=== PATIENT | female | born 1960 | race Caucasian/White ===

== ENCOUNTER 2018-04-04 14:54 | Emergency (ER) | payer BC ==
[2018-04-04 15:00] VITALS: TEMP 97.9
--- NOTE | 2018-04-04 15:20 | ED ---
Abdominal Pain HPI - General Chief Complaint: Abdominal Pain Stated Complaint: Post Op/ Pain Time Seen by Provider: 04/04/18 15:10 Source: patient, RN notes reviewed Mode of arrival: ambulatory Limitations: no limitations - History of Present Illness Initial Comments: This is a 57-year-old female with a history of a hernia repair in. She surgery 2 weeks ago who complains of increased abdominal pain such as breathing is sharp with this activity but mostly dull and achy mostly 10/10 severity currently 8/10 as a chills sweats no nausea vomiting diarrhea she was constipated for a couple days after the procedure pronounced when normally she states. No dysuria no hematuria MD Complaint: abdominal pain, other - Related Data Home Medications Medication Instructions Recorded Confirmed Acetaminophen [Tylenol] 650 mg PO Q4H PRN 04/04/18 04/04/18 Cetirizine HCl [Zyrtec] 10 mg PO DAILY 04/04/18 04/04/18 Furosemide [Lasix] 20 mg PO BID 04/04/18 04/04/18 Lisinopril [Zestril] 2.5 mg PO DAILY 04/04/18 04/04/18 Multivitamins, Thera [Multivitamin 1 tab PO DAILY 04/04/18 04/04/18 (formulary)] Venlafaxine HCl [Effexor] 100 mg PO TID 04/04/18 04/04/18 busPIRone HCL 15 mg PO TID 04/04/18 04/04/18 lamoTRIgine [LaMICtal] 100 mg PO BID 04/04/18 04/04/18 Previous Rx's Medication Instructions Recorded Dicyclomine [Bentyl] 10 mg PO TID #15 capsule 04/04/18 HYDROcodone/APAP 7.5-325MG [[place] 1 tab PO Q6HR PRN 3 Days #12 tab 04/04/18 7.5-325] Allergies Allergy/AdvReac Type Severity Reaction Status Date / Time No Known Allergies Allergy Verified 04/04/18 15:16 Review of Systems ROS Statement: Those systems with pertinent positive or pertinent negative responses have been documented in the HPI. ROS Other: All systems not noted in ROS Statement are negative. Past Medical History Past Medical History: Hypertension, Osteoarthritis (OA) History of Any Multi-Drug Resistant Organisms: None Reported Past Surgical History: Bariatric Surgery, Bladder Surgery, Hysterectomy, Orthopedic Surgery Additional Past Surgical History / Comment(s): gastric sleeve with reversal and roun-y, right shoulder, bilateral hand, skin grafts to legs, Past Psychological History: Anxiety, Depression Smoking Status: Never smoker Past Alcohol Use History: None Reported Past Drug Use History: None Reported General Exam - General Exam Comments Initial Comments: This is a well-developed well-nourished awake alert oriented 3 female Limitations: no limitations General appearance: alert, anxious Head exam: Present: atraumatic, normocephalic, normal inspection Eye exam: Present: normal appearance, PERRL, EOMI. Absent: scleral icterus, conjunctival injection, periorbital swelling ENT exam: Present: normal exam, mucous membranes moist Neck exam: Present: normal inspection. Absent: tenderness, meningismus, lymphadenopathy Respiratory exam: Present: normal lung sounds bilaterally. Absent: respiratory distress, wheezes, rales, rhonchi, stridor Cardiovascular Exam: Present: regular rate, normal rhythm, normal heart sounds. Absent: systolic murmur, diastolic murmur, rubs, gallop, clicks GI/Abdominal exam: Present: soft, tenderness (Epigastric tenderness palpation with some voluntary guarding no rebound port sites are intact with no evidence of any dehiscence no evidence of infection.), normal bowel sounds. Absent: distended, guarding, rebound, rigid Rectal exam: Present: deferred Extremities exam: Present: normal inspection, full ROM, normal capillary refill. Absent: tenderness, pedal edema, joint swelling, calf tenderness Back exam: Present: normal inspection, full ROM. Absent: CVA tenderness (R), CVA tenderness (L) Neurological exam: Present: alert, oriented X3, CN II-XII intact Psychiatric exam: Present: normal affect, normal mood Skin exam: Present: warm, dry, intact, normal color. Absent: rash Course Vital Signs 04/04/18 04/04/18 14:56 17:15 Temperature 97.9 F Pulse Rate 82 71 Respiratory 18 16 Rate Blood Pressure 126/86 133/70 O2 Sat by Pulse 97 98 Oximetry Medical Decision Making - Medical Decision Making Patient did get improvement after the IV medication fluids I did discuss case with Dr. Eagle by way of a nurse and she was in the OR. Patient will be discharged and follow-up on Sunday which is in 5 days in the office. - Lab Data Result diagrams: 04/04/18 15:41 04/04/18 15:41 Lab Results 04/04/18 04/04/18 04/04/18 Range/Units 15:41 15:41 15:41 WBC 8.7 (3.8-10.6) k/uL RBC 4.68 (3.80-5.40) m/uL Hgb 13.8 (11.4-16.0) gm/dL Hct 41.6 (34.0-46.0) % MCV 89.0 (80.0-100.0) fL MCH 29.5 (25.0-35.0) pg MCHC 33.1 (31.0-37.0) g/dL RDW 14.4 (11.5-15.5) % Plt Count 208 (150-450) k/uL Neutrophils % 68 % Lymphocytes % 22 % Monocytes % 5 % Eosinophils % 3 % Basophils % 1 % Neutrophils # 5.9 (1.3-7.7) k/uL Lymphocytes # 1.9 (1.0-4.8) k/uL Monocytes # 0.5 (0-1.0) k/uL Eosinophils # 0.2 (0-0.7) k/uL Basophils # 0.0 (0-0.2) k/uL PT (9.0-12.0) sec INR (<1.2) APTT (22.0-30.0) sec Sodium 140 (137-145) mmol/L Potassium 4.4 (3.5-5.1) mmol/L Chloride 104 (98-107) mmol/L Carbon Dioxide 27 (22-30) mmol/L Anion Gap 9 mmol/L BUN 13 (7-17) mg/dL Creatinine 0.60 (0.52-1.04) mg/dL Est GFR (CKD-EPI)AfAm >90 (>60 ml/min/1.73 sqM) Est GFR (CKD-EPI)NonAf >90 (>60 ml/min/1.73 sqM) Glucose 89 (74-99) mg/dL Plasma Lactic Acid Rubens 0.6 L (0.7-2.0) mmol/L Calcium 9.7 (8.4-10.2) mg/dL Total Bilirubin 0.4 (0.2-1.3) mg/dL AST 29 (14-36) U/L ALT 33 (9-52) U/L Alkaline Phosphatase 78 (38-126) U/L Total Protein 7.0 (6.3-8.2) g/dL Albumin 4.3 (3.5-5.0) g/dL Amylase 46 (30-110) U/L Lipase 98 (23-300) U/L Urine Color Urine Appearance (Clear) Urine pH (5.0-8.0) Urine Protein (Negative) Urine Glucose (UA) (Negative) Urine Ketones (Negative) Urine Blood (Negative) Urine Nitrite (Negative) Urine Bilirubin (Negative) Urine Urobilinogen (<2.0) mg/dL Ur Leukocyte Esterase (Negative) Urine RBC (0-5) /hpf Urine WBC (0-5) /hpf Ur Squamous Epith Cells (0-4) /hpf Urine Mucus (None) /hpf 04/04/18 04/04/18 Range/Units 15:41 17:15 WBC (3.8-10.6) k/uL RBC (3.80-5.40) m/uL Hgb (11.4-16.0) gm/dL Hct (34.0-46.0) % MCV (80.0-100.0) fL MCH (25.0-35.0) pg MCHC (31.0-37.0) g/dL RDW (11.5-15.5) % Plt Count (150-450) k/uL Neutrophils % % Lymphocytes % % Monocytes % % Eosinophils % % Basophils % % Neutrophils # (1.3-7.7) k/uL Lymphocytes # (1.0-4.8) k/uL Monocytes # (0-1.0) k/uL Eosinophils # (0-0.7) k/uL Basophils # (0-0.2) k/uL PT 10.2 (9.0-12.0) sec INR 1.0 (<1.2) APTT 23.0 (22.0-30.0) sec Sodium (137-145) mmol/L Potassium (3.5-5.1) mmol/L Chloride (98-107) mmol/L Carbon Dioxide (22-30) mmol/L Anion Gap mmol/L BUN (7-17) mg/dL Creatinine (0.52-1.04) mg/dL Est GFR (CKD-EPI)AfAm (>60 ml/min/1.73 sqM) Est GFR (CKD-EPI)NonAf (>60 ml/min/1.73 sqM) Glucose (74-99) mg/dL Plasma Lactic Acid Rubens (0.7-2.0) mmol/L Calcium (8.4-10.2) mg/dL Total Bilirubin (0.2-1.3) mg/dL AST (14-36) U/L ALT (9-52) U/L Alkaline Phosphatase (38-126) U/L Total Protein (6.3-8.2) g/dL Albumin (3.5-5.0) g/dL Amylase (30-110) U/L Lipase (23-300) U/L Urine Color Yellow Urine Appearance Clear (Clear) Urine pH 7.0 (5.0-8.0) Urine Protein Trace H (Negative) Urine Glucose (UA) Negative (Negative) Urine Ketones 1+ H (Negative) Urine Blood Negative (Negative) Urine Nitrite Negative (Negative) Urine Bilirubin Negative (Negative) Urine Urobilinogen <2.0 (<2.0) mg/dL Ur Leukocyte Esterase Trace H (Negative) Urine RBC 2 (0-5) /hpf Urine WBC 1 (0-5) /hpf Ur Squamous Epith Cells 10 H (0-4) /hpf Urine Mucus Rare H (None) /hpf - Radiology Data Radiology results: report reviewed (I did review the imaging and report no acute findings. There is evidence of a small hernia superior to the umbilicus also small pelvic fluid), image reviewed Disposition Clinical Impression: Postoperative abdominal pain Disposition: HOME SELF-CARE Condition: Good Instructions: Abdominal Pain (ED) Prescriptions: Dicyclomine [Bentyl] 10 mg PO TID #15 capsule HYDROcodone/APAP 7.5-325MG [[place] 7.5-325] 1 tab PO Q6HR PRN 3 Days #12 tab PRN Reason: Pain Is patient prescribed a controlled substance at d/c from ED?: Yes When asked, does pt state using other controlled substances?: Yes If prescribed controlled substance>3 days was MAPS reviewed?: Prescribed <3 Days If opioid is for acute pain is fill amount 7 days or less?: Yes If Rx opioid, was Start Talking consent form obtained?: Yes Referrals: None,Stated [Primary Care Provider] - 1-2 days
[2018-04-04] MEDS ORDERED: IOPAMIDOL-300 CONTRAST 30 ML VIAL (ORAL USE) PO PRN (15:25)
[2018-04-04] MEDS ORDERED: SODIUM CHLORIDE 0.9% 1,000 ML IV STA ×2 (15:25)
[2018-04-04] MEDS ORDERED: HYDROmorphone 1 MG/ML 1 ML SYRINGE IVP STA (15:26)
[2018-04-04 15:51] LABS: Basophils % (A) 1 %; Eosinophils # (A) 0.2 k/uL (0-0.7); Eosinophils % (A) 3 %; HCT 41.6 % (34.0-46.0); HGB 13.8 gm/dL (11.4-16.0); Lymphocytes # (A) 1.9 k/uL (1.0-4.8); Lymphocytes % (A) 22 %; MCH 29.5 pg (25.0-35.0); MCHC 33.1 g/dL (31.0-37.0); Mean Platelet Volume 10.1; Monocytes # (A) 0.5 k/uL (0-1.0); Monocytes % (A) 5 %; Neutrophils # (A) 5.9 k/uL (1.3-7.7); Neutrophils % (A) 68 %; Platelet Count 208 k/uL (150-450); RBC 4.68 m/uL (3.80-5.40); RDW 14.4 % (11.5-15.5); WBC 8.7 k/uL (3.8-10.6)
[2018-04-04 15:57] LABS: ALT 33 U/L (9-52); AST 29 U/L (14-36); Albumin 4.3 g/dL (3.5-5.0); Alkaline Phosphatase 78 U/L (38-126); Amylase 46 U/L (30-110); Anion Gap 9 mmol/L; Blood Urea Nitrogen 13 mg/dL (7-17); Calcium 9.7 mg/dL (8.4-10.2); Carbon Dioxide 27 mmol/L (22-30); Chloride 104 mmol/L (98-107); Glucose 89 mg/dL (74-99); Lipase 98 U/L (23-300); Potassium 4.4 mmol/L (3.5-5.1); Sodium 140 mmol/L (137-145); Total Bilirubin 0.4 mg/dL (0.2-1.3)
--- NOTE | 2018-04-04 16:01 | XR ---
EXAMINATION TYPE: XR KUB DATE OF EXAM: 04/04/2018 3:54 PM CLINICAL HISTORY: Abdominal pain. History of hiatal hernia repair. TECHNIQUE: Single supine KUB image of the abdomen is obtained. COMPARISON: None. FINDINGS: Surgical sutures from possible prior partial gastrectomy and/or hernia repair in the left u pper quadrant. Liver is enlarged extending the iliac crest. Mild degenerative changes of the lumbosac ral junction are noted. No dilated large or small bowel. No evidence of gross pneumoperitoneum. No ab normal calcifications are appreciated. The lung bases are clear and the osseous structures are intact . IMPRESSION: Nonobstructive bowel gas pattern. Postsurgical changes in the left upper quadrant and hepatomegaly ar e incidentally noted.
[2018-04-04 16:02] LABS: Prothrombin Time 10.2 sec (9.0-12.0)
--- NOTE | 2018-04-04 16:38 | CT ---
EXAMINATION TYPE: CT abdomen pelvis w con DATE OF EXAM: 04/04/2018 COMPARISON: HISTORY: Mid abdominal pain post op hiatal hernia repair. CT DLP: 1472 mGycm CONTRAST: CT scan of the abdomen and pelvis is performed with Oral Contrast and with IV Contrast, patient injec ambrose with 100ml mL of Isovue M300. FINDINGS: LUNG BASES-: No visible nodule. No infiltrate. LIVER/GB: Unusually positioned gallbladder versus a focal fluid collection anterior to the liver. No space occupying hepatic lesion. Biliary tree is of normal caliber. PANCREAS: No inflammation. No distinct mass. SPLEEN: No splenic enlargement. No lesion seen. ADRENALS: No nodule. No thickening. KIDNEYS/BLADDER: No hydronephrosis. No nephrolithiasis. No distinct renal mass. Urinary bladder g rossly unremarkable. BOWEL: Epigastric postsurgical change. Postsurgical changes of bariatric gastric surgery. Normal appe ndix. Normal bowel caliber. No inflammation. GENITAL ORGANS: No gross abnormality. LYMPH NODES: No greater than 1cm abdominal or pelvic lymph nodes are appreciated. AORTA: No significant abnormality. OSSEOUS STRUCTURES: No significant abnormality is seen. OTHER: Small fat-containing anterior abdominal wall hernia just cranial to the level of the umbilicus and to the left of midline with the tubular fluid collection seen. Additional small umbilical hernia with internal fluid. Small amount of free fluid within the pelvis. IMPRESSION: 1. Small anterior abdominal wall hernias as noted. Correlate clinically. 2. No evidence for abscess or free air.
[2018-04-04 17:16] VITALS: BP 133/70; PULSE 71; RESP 16
[2018-04-04 17:31] LABS: Appearance,Urine Clear (Clear); Bilirubin,Urine Negative (Negative); Blood,Urine Negative (Negative); Color,Urine Yellow; Glucose,Urine (UA) Negative (Negative); Ketones,Urine 1+ (Negative); Leukocyte Esterase,Urine Trace (Negative); Mucus,Urine Rare /hpf; Nitrite,Urine Negative (Negative); Protein,Urine Trace (Negative); RBC,Urine 2 /hpf (0-5); Squamous Epithelial Cell,Urine 10 /hpf (0-4); Urobilinogen,Urine <2.0 mg/dL (<2.0); WBC,Urine 1 /hpf (0-5)
[2018-04-04 17:35] LABS: Specific Gravity,Urine >1.050 (1.001-1.035)
== END 2018-04-04 17:48 | disposition home or self-care (01) ==
LOC: EC 14:54
DX: G89.18 Other acute postprocedural pain (principal); R10.9 Unspecified abdominal pain; I10 Essential (primary) hypertension; F41.9 Anxiety disorder, unspecified; F32.9 Major depressive disorder, single episode, unspecified; Z98.84 Bariatric surgery status; Z90.710 Acquired absence of both cervix and uterus; Z98.890 Other specified postprocedural states; Z79.899 Other long term (current) drug therapy
CPT/HCPCS: 36415; 80053; 82150; 83605; 83690; 85025; 85610; 85730; 81001; 74018; 74177; 99284; 96374; 96361 ×2; J1170; Q9967

== ENCOUNTER 2018-05-02 08:11 | Day surgery (SDC) | payer BC ==
[2018-04-25 10:08] VITALS: BMI 34.4
--- NOTE | 2018-05-01 19:23 | P.GSHP ---
History of Present Illness H&P Date: 05/02/18 CHIEF COMPLAINT: Incisional hernia. HISTORY OF PRESENT ILLNESS: The patient is a 57-year-old female who presents with a history of swelling along the epigastrium. Findings were consistent with possible incisional hernia. Now she presents for further evaluation and management. PAST MEDICAL HISTORY: Please see list. PAST SURGICAL HISTORY: Please see list. MEDICATIONS: Please see list. ALLERGIES: Please see list. SOCIAL HISTORY: No illicit drug use FAMILY HISTORY: No reports of Crohn disease or ulcerative colitis. REVIEW OF ORGAN SYSTEMS: CONSTITUTIONAL: No reports of fevers or chills. GI: Denies any blood in stools or constipation. PHYSICAL EXAM: VITAL SIGNS: Stable GENERAL: Well-developed pleasant female in no acute distress. HEENT: No scleral icterus. Extraocular movements grossly intact. Moist buccal mucosa. NECK: Supple without lymphadenopathy. CHEST: Unlabored respirations. Equal bilateral excursions. CARDIOVASCULAR: Regular rate and rhythm. Distal 2+ pulses. ABDOMEN: Soft, nondistended. Tender along the epigastrium Protuberant. MUSCULOSKELETAL: No clubbing, cyanosis, or edema. ASSESSMENT: 1. Incisional ventral hernia. PLAN: 1. Recommend proceeding with robotic ventral hernia repair with mesh. 2. Benefits and risks of surgical intervention was discussed including possibility of open technique. 3. DVT prophylaxis. 4. Antibiotic prophylaxis. Past Medical History Past Medical History: Hypertension, Osteoarthritis (OA), Pulmonary Embolus (PE) Additional Past Medical History / Comment(s): HERNIA History of Any Multi-Drug Resistant Organisms: None Reported Past Surgical History: Bariatric Surgery, Bladder Surgery, Cholecystectomy, Hernia Repair, Hysterectomy, Orthopedic Surgery Additional Past Surgical History / Comment(s): gastric sleeve with reversal and [place] EN Y, right shoulder, bilateral hand, skin grafts to legs, COLONOSCOPIES, EGD'S Past Anesthesia/Blood Transfusion Reactions: No Reported Reaction Smoking Status: Never smoker - Past Family History Father Family Medical History: Cancer Medications and Allergies Home Medications Medication Instructions Recorded Confirmed Type Acetaminophen [Tylenol] 650 mg PO Q4H PRN 04/04/18 04/25/18 History Cetirizine HCl [Zyrtec] 10 mg PO DAILY 04/04/18 04/25/18 History Dicyclomine [Bentyl] 10 mg PO TID #15 capsule 04/04/18 04/25/18 Rx Furosemide [Lasix] 20 mg PO BID 04/04/18 04/25/18 History HYDROcodone/APAP 7.5-325MG [[place] 1 tab PO Q6HR PRN 3 Days #12 tab 04/04/1802/04 Rx 7.5-325] Lisinopril [Zestril] 2.5 mg PO DAILY 04/04/18 04/25/18 History Multivitamins, Thera [Multivitamin 1 tab PO DAILY 04/04/18 04/25/18 History (formulary)] Venlafaxine HCl [Effexor] 100 mg PO TID 04/04/18 04/25/18 History busPIRone HCL 15 mg PO TID 04/04/18 04/25/18 History lamoTRIgine [LaMICtal] 100 mg PO BID 04/04/18 04/25/18 History Simethicone 40 mg/0.6 ml Drops 40 mg PO Q6HR PRN #30 ml 04/24/18 04/25/18 Rx [Mylicon Drops] Hyoscyamine Oral Drops [Levsin 0.3 mg PO Q6HR #15 ml 04/25/18 04/25/18 Rx Drops] Allergies Allergy/AdvReac Type Severity Reaction Status Date / Time No Known Allergies Allergy Verified 04/25/18 10:01
[~2018-05-02 08:11] MED LIST: DEXAMETHASONE SOD PHOSPHATE 10 MG/ML 1 ML VIAL IV ONE; HEPARIN SODIUM,PORCINE 5,000 UNIT/ML 1 ML VIAL SQ ONE; LACTATED RINGERS 1,000 ML IV SCH; MIDAZOLAM 2 MG/2 ML VIAL IV PRN; ONDANSETRON 4 MG/2 ML VIAL IVP ONE; SCOPOLAMINE 1.5MG/72HR PATCH TRANSDERM ONE; ceFAZolin IN SWFI 2 GM/20 ML SYRINGE IVP ONE; fentaNYL (PF) 50 MCG/ML 2 ML AMP IV PRN
[2018-05-02 08:27] VITALS: TEMP 97.8
[2018-05-02] MEDS ORDERED: LIDOCAINE 1% 20 ML VIAL (10MG/ML) FOR IV START INTRADERMA ONE (08:31)
[2018-05-02] MEDS ORDERED: LACTATED RINGERS 1,000 ML IV ONE ×3 (08:47→13:02)
[2018-05-02] MEDS ORDERED: MIDAZOLAM 2 MG/2 ML VIAL IVP ONE (08:47)
[2018-05-02] MEDS ORDERED: BUPIVACAIN-EPI 0.25%-1:200,000 30 ML VIAL SQ ONE ×2 (10:45→11:11)
[2018-05-02] MEDS ORDERED: GLYCOPYRROLATE 0.2 MG/ML 2 ML VIAL ONE (10:46)
[2018-05-02] MEDS ORDERED: LIDOCAINE 1% INJ 10MG/ML (20 ML MDV) ONE (10:46)
[2018-05-02] MEDS ORDERED: fentaNYL (PF) 50 MCG/ML 2 ML AMP ONE (10:46)
[2018-05-02] MEDS ORDERED: PROPOFOL 10 MG/ML 20 ML VIAL IV ONE (10:46)
[2018-05-02] MEDS ORDERED: MIDAZOLAM 2 MG/2 ML VIAL ONE (10:46)
[2018-05-02] MEDS ORDERED: ROCURONIUM BROMIDE 10 MG/ML 10 ML VIAL IV ONE (10:46)
[2018-05-02] MEDS ORDERED: SUCCINYLCHOLINE CHLORIDE 100 MG/5 ML SYR IV ONE (10:46)
[2018-05-02] MEDS ORDERED: NEOSTIGMINE 1 MG/ML 10 ML VIAL ONE (10:46)
--- NOTE | 2018-05-02 12:03 | P.OP ---
Date of Procedure: 05/02/18 Description of Procedure: SURGEON: MIKAELA EASTON MD PREOPERATIVE DIAGNOSES: 1. Epigastric abdominal pain 2. Abnormal computed tomography scan demonstrating possible incisional hernia 3. History of gastric bypass 4. Hypertensive heart disease with cardiomyopathy 5. Status post gastric bypass 6. Portillo's esophagus 7. Gastroesophageal reflux disease POSTOPERATIVE DIAGNOSES: 1. Epigastric abdominal pain 2. Abnormal computed tomography scan demonstrating possible incisional hernia 3. History of gastric bypass 4. Hypertensive heart disease with cardiomyopathy 5. Status post gastric bypass 6. Portillo's esophagus 7. Gastroesophageal reflux disease 8. Peritoneal adhesions. 9. Mesenteric/Peritoneal cyst over 5 cm 10. Internal hernia OPERATION: 1. Robotic-assisted da Shravan Xi laparoscopic with lysis of adhesions 2. Robotic-assisted da Shravan Xi laparoscopic excision of mesenteric cyst, 5 cm ESTIMATED BLOOD LOSS: 5 mL. SPECIMENS REMOVED: Mesenteric cyst wall COMPLICATIONS: None. OPERATIVE FINDINGS: 1. No ventral hernias identified. 2. Adhesions along the epigastrium 3. Diagnostic laparoscopy with investigation of small bowel with internal hernia involving transverse mesocolon mesentery INDICATIONS: The patient is a 57-year-old female who presents with epigastric abdominal pain and possible incisional hernia per CT scan. Surgical intervention with diagnostic laparoscopy, possible ventral hernia repair were described. Informed consent was obtained. Robotic assisted laparoscopic approach was described. Benefits and risks of the procedure including but not limited to bleeding, infection, injury to the biliary tree was described. Informed consent was obtained. DESCRIPTION OF PROCEDURE: Patient was brought to the operating room, placed in supine position. After general induction, the abdomen had been prepped and draped in standard sterile fashion. The robotic da Shravan XI system was primed. After a timeout protocol was performed, the patient had been prepped and draped in standard sterile fashion. The robot was docked along the right lateral abdomen. The patient was repositioned in with right side up. Please note prior to docking of the robot; however, a 5 mm 0 degrees laparoscopic trocar entry was performed along the right upper quadrant. Next, two 8 mm robotic ports were placed along the right lateral abdominal wall. The camera 8-mm port was maintained along mid- lateral abdomen. The 8 mm port was placed along the right upper abdominal wall was exchanged from the 5 mm port. Please note that the ports were placed at least 10 to 15 cm away from the target anatomy. Using a grasper for arm 2, including scissor for arm 1, the robotic system was docked and primed as described. Instruments were interchanged by the account assistant including Bovie cautery scissors. I had sat at the console. Omental adhesions along the epigastric abdominal wall was addressed using scissors. No evidence of incisional hernia was identified. The rest of the abdomen was unremarkable for small bowel pathology. No port site hernias were identified. A large mesenteric cyst over 5 cm was excised from the right upper quadrant abdominal wall and clear fluid was found. The mesenteric cyst wall was sent for pathological analysis. The small bowel from the arthur limb to distal ileum was performed. An internal hernia of the transverse mesocolon was identified and lysed. No evidence of small bowel obstruction was found. The robot was undocked. All pneumoperitoneum instruments were evacuated from the abdominal cavity. The incisions were reapproximated using 4-0 Monocryl in an interrupted subcuticular fashion. Please note along the trocar sites, local anesthetic was placed as a field block prior to insertion of all instruments. Exofin was applied to the skin. At the end of the procedure needle, sponge, and instrument count had been verified correct by the instructor adjunct surgical technician. The patient was transferred to postanesthesia care unit in stable condition. Console time 22 minutes Plan - Discharge Summary Discharge Rx Participant: Yes New Discharge Prescriptions: No Action Acetaminophen [Tylenol] 650 mg PO Q4H PRN PRN Reason: Pain Or Fever > 100.5 lamoTRIgine [LaMICtal] 100 mg PO BID busPIRone HCL 15 mg PO TID Multivitamins, Thera [Multivitamin (formulary)] 1 tab PO DAILY Furosemide [Lasix] 20 mg PO BID Lisinopril [Zestril] 2.5 mg PO DAILY Cetirizine HCl [Zyrtec] 10 mg PO DAILY Venlafaxine HCl [Effexor] 100 mg PO TID Dicyclomine [Bentyl] 10 mg PO TID #15 capsule HYDROcodone/APAP 7.5-325MG [[place] 7.5-325] 1 tab PO Q6HR PRN 3 Days #12 tab PRN Reason: Pain Simethicone 40 mg/0.6 ml Drops [Mylicon Drops] 40 mg PO Q6HR PRN #30 ml PRN Reason: Abdominal Distention Hyoscyamine Oral Drops [Levsin Drops] 0.3 mg PO Q6HR #15 ml Discharge Medication List Acetaminophen [Tylenol] 650 mg PO Q4H PRN 04/04/18 [History] Cetirizine HCl [Zyrtec] 10 mg PO DAILY 04/04/18 [History] Dicyclomine [Bentyl] 10 mg PO TID #15 capsule 04/04/18 [Rx] Furosemide [Lasix] 20 mg PO BID 04/04/18 [History] HYDROcodone/APAP 7.5-325MG [[place] 7.5-325] 1 tab PO Q6HR PRN 3 Days #12 tab [Rx] Lisinopril [Zestril] 2.5 mg PO DAILY 04/04/18 [History] Multivitamins, Thera [Multivitamin (formulary)] 1 tab PO DAILY 04/04/18 [History ] Venlafaxine HCl [Effexor] 100 mg PO TID 04/04/18 [History] busPIRone HCL 15 mg PO TID 04/04/18 [History] lamoTRIgine [LaMICtal] 100 mg PO BID 04/04/18 [History] Simethicone 40 mg/0.6 ml Drops [Mylicon Drops] 40 mg PO Q6HR PRN #30 ml [Rx] Hyoscyamine Oral Drops [Levsin Drops] 0.3 mg PO Q6HR #15 ml 04/25/18 [Rx]
[2018-05-02] MEDS ORDERED: HYDROmorphone 1 MG/ML 1 ML SYRINGE IM ONE (12:10)
[2018-05-02] MEDS ORDERED: HYDROmorphone 1 MG/ML 1 ML SYRINGE IVP ONE ×3 (12:18→12:31)
[2018-05-02] MEDS ORDERED: HYDROcodone/APAP 7.5-325MG 1 EACH TAB PO ONE (13:47)
[2018-05-02 14:20] VITALS: BP 138/87; PULSE 88; RESP 17
== END 2018-05-02 14:31 | disposition home or self-care (01) ==
LOC: OR 08:11
PROVIDERS: ATTEND Surgery Plastic and Reconstructive Surgery
DX: K66.8 Other specified disorders of peritoneum (principal); K66.0 Peritoneal adhesions (postprocedural) (postinfection); K46.9 Unspecified abdominal hernia without obstruction or gangrene; I11.9 Hypertensive heart disease without heart failure; I42.9 Cardiomyopathy, unspecified; K22.70 Barrett's esophagus without dysplasia; K21.9 Gastro-esophageal reflux disease without esophagitis; M19.90 Unspecified osteoarthritis, unspecified site; F39 Unspecified mood [affective] disorder; Z79.899 Other long term (current) drug therapy; Z90.3 Acquired absence of stomach [part of]; Z98.84 Bariatric surgery status; Z90.49 Acquired absence of other specified parts of digestive tract; Z90.710 Acquired absence of both cervix and uterus; Z86.711 Personal history of pulmonary embolism
CPT/HCPCS: 49329; 58662; 88305; J2250; J1644; J1100; J2710; J2405; J2001; J3010; J1170; J0330; J2704; J0690

== ENCOUNTER 2018-05-05 21:45 | Inpatient (IN) | payer BC ==
[2018-05-05] MEDS ORDERED: SODIUM CHLORIDE 0.9% 1,000 ML IV STA (21:59)
[2018-05-05] MEDS ORDERED: IOPAMIDOL-300 CONTRAST 30 ML VIAL (ORAL USE) PO PRN (21:59)
[2018-05-05] MEDS ORDERED: MORPHINE SULFATE 4 MG/ML SYRINGE IVP STA (22:07)
[2018-05-05] MEDS ORDERED: ONDANSETRON 4 MG/2 ML VIAL IVP STA (22:07)
[2018-05-05 22:48] LABS: Basophils % (A) 0 %; Eosinophils # (A) 0.4 k/uL (0-0.7); Eosinophils % (A) 5 %; HCT 42.4 % (34.0-46.0); HGB 14.2 gm/dL (11.4-16.0); Lymphocytes # (A) 1.8 k/uL (1.0-4.8); Lymphocytes % (A) 21 %; MCH 30.3 pg (25.0-35.0); MCHC 33.6 g/dL (31.0-37.0); MCV 90.3 fL (80.0-100.0); Mean Platelet Volume 10.1; Monocytes # (A) 0.6 k/uL (0-1.0); Monocytes % (A) 7 %; Neutrophils # (A) 5.6 k/uL (1.3-7.7); Neutrophils % (A) 65 %; Platelet Count 199 k/uL (150-450); RDW 13.4 % (11.5-15.5); WBC 8.7 k/uL (3.8-10.6)
[2018-05-05 22:49] LABS: Appearance,Urine Clear (Clear); Bilirubin,Urine Negative (Negative); Blood,Urine Negative (Negative); Color,Urine Yellow; Glucose,Urine (UA) Negative (Negative); Ketones,Urine Negative (Negative); Leukocyte Esterase,Urine Small (Negative); Mucus,Urine Rare /hpf; Nitrite,Urine Negative (Negative); Protein,Urine Trace (Negative); RBC,Urine 1 /hpf (0-5); Specific Gravity,Urine 1.018 (1.001-1.035); Squamous Epithelial Cell,Urine 2 /hpf (0-4); Urobilinogen,Urine <2.0 mg/dL (<2.0); WBC,Urine 5 /hpf (0-5)
[2018-05-05 22:55] LABS: Partial Thromboplastin Time 24.2 sec (22.0-30.0); Prothrombin Time 9.8 sec (9.0-12.0)
[2018-05-05 23:01] LABS: ALT 22 U/L (9-52); AST 22 U/L (14-36); Albumin 4.3 g/dL (3.5-5.0); Alkaline Phosphatase 73 U/L (38-126); Amylase 40 U/L (30-110); Anion Gap 9 mmol/L; Blood Urea Nitrogen 14 mg/dL (7-17); Carbon Dioxide 31 mmol/L (22-30); Chloride 101 mmol/L (98-107); Glucose 96 mg/dL (74-99); Lipase 51 U/L (23-300); Potassium 4.4 mmol/L (3.5-5.1); Sodium 141 mmol/L (137-145); Total Bilirubin 0.4 mg/dL (0.2-1.3); Total Protein 7.1 g/dL (6.3-8.2)
--- NOTE | 2018-05-05 23:21 | ED ---
General Adult HPI - General Chief complaint: Abdominal Pain Stated complaint: Abd pain Time Seen by Provider: 05/05/18 21:59 Source: patient, family Mode of arrival: ambulatory Limitations: no limitations - History of Present Illness Initial comments: Polly is a 57-year-old female who presents the emergency department today for evaluation of persistent abdominal pain nausea and vomiting. The patient underwent a bariatric surgery revision [address] Eagle. Patient reports that since that time she has not passed any gas, he has had persistent nausea and multiple episodes of nonbloody nonbilious emesis. Patient does report that this morning she did have a small bowel movement that was nonbloody however since that time she has not had any gas per rectum. Patient reports she has constant squeezing and pulling like pain throughout her entire abdomen. She is been taking [place] and stool softeners with absolutely no relief of her pain. She is now out of her narcosis and her pain persists. His any fevers though she does admit that she has been chilled, she denies any chest pain or palpitations. - Related Data Home Medications Medication Instructions Recorded Confirmed Acetaminophen [Tylenol] 650 mg PO Q4H PRN 04/04/18 05/05/18 Cetirizine HCl [Zyrtec] 10 mg PO DAILY 04/04/18 05/05/18 Furosemide [Lasix] 20 mg PO BID 04/04/18 05/05/18 Lisinopril [Zestril] 2.5 mg PO DAILY 04/04/18 05/05/18 Multivitamins, Thera [Multivitamin 1 tab PO DAILY 04/04/18 05/05/18 (formulary)] RX: busPIRone HCL 15 mg PO TID 04/04/18 05/05/18 Venlafaxine HCl [Effexor] 100 mg PO TID 04/04/18 05/05/18 lamoTRIgine [LaMICtal] 100 mg PO BID 04/04/18 05/05/18 Previous Rx's Medication Instructions Recorded Dicyclomine [Bentyl] 10 mg PO TID #15 capsule 04/04/18 HYDROcodone/APAP 7.5-325MG [[place] 1 tab PO Q6HR PRN 3 Days #12 tab 04/04/18 7.5-325] RX: Simethicone 40 mg/0.6 ml Drops 40 mg PO Q6HR PRN #30 ml 04/24/18 [Mylicon Drops] Hyoscyamine Oral Drops [Levsin 0.3 mg PO Q6HR #15 ml 04/25/18 Drops] HYDROcodone/APAP 7.5-325MG [[place] 1 tab PO Q4H PRN 3 Days #18 tab 05/02/18 7.5-325] Allergies Allergy/AdvReac Type Severity Reaction Status Date / Time No Known Allergies Allergy Verified 05/05/18 21:57 Review of Systems ROS Statement: Those systems with pertinent positive or pertinent negative responses have been documented in the HPI. ROS Other: All systems not noted in ROS Statement are negative. Past Medical History Past Medical History: Hypertension, Osteoarthritis (OA), Pulmonary Embolus (PE) Additional Past Medical History / Comment(s): HERNIA History of Any Multi-Drug Resistant Organisms: None Reported Past Surgical History: Bariatric Surgery, Bladder Surgery, Cholecystectomy, Hernia Repair, Hysterectomy, Orthopedic Surgery Additional Past Surgical History / Comment(s): gastric sleeve with reversal and [place] EN Y, right shoulder, bilateral hand, skin grafts to legs, COLONOSCOPIES, EGD'S Past Anesthesia/Blood Transfusion Reactions: No Reported Reaction Past Psychological History: Anxiety, Depression Smoking Status: Former smoker Past Alcohol Use History: None Reported Past Drug Use History: None Reported - Past Family History Father Family Medical History: Cancer General Exam - General Exam Comments Initial Comments: GENERAL: Patient is well-developed and well-nourished. Patient is nontoxic and well- hydrated and is in moderate distress. HENT: Normocephalic, Atraumatic. Neck is soft and supple. No significant lymphadenopathy is noted. EYES: The sclera were anicteric and conjunctiva were pink and moist. Extraocular movements were intact and pupils were round and reactive to light, noted to have physiologic and is acoria with left pupil approximately 1-2 mm larger than right. Eyelids were unremarkable. PULMONARY: Unlabored respirations. Good breath sounds bilaterally. No audible rales rhonchi or wheezing was noted. CARDIOVASCULAR: There is a regular rate and rhythm without any murmurs gallops or rubs. ABDOMEN: Soft and nontender with normal bowel sounds. SKIN: Skin is clear with no lesions or rashes and otherwise unremarkable. NEUROLOGIC: Patient is alert and oriented x3. Cranial nerves II through XII are grossly intact. Motor and sensory are also intact. Normal speech, volume and content. Symmetrical smile. MUSCULOSKELETAL: Normal extremities with adequate strength and full range of motion. No lower extremity swelling or edema. No calf tenderness. LYMPHATICS: No significant lymphadenopathy is noted PSYCHIATRIC: Normal psychiatric evaluation. Limitations: no limitations Limitations: no limitations Course Vital Signs 05/05/18 05/05/18 21:53 23:38 Temperature 98.5 F Pulse Rate 76 66 Respiratory 20 16 Rate Blood Pressure 133/91 145/85 O2 Sat by Pulse 99 99 Oximetry Medical Decision Making - Medical Decision Making Patient care was discussed with the patient's surgeon Dr. Pathak prior to the patient's arrival patient is in the immediate postop period having abdominal pain, passing no gas there is concern for a bowel obstruction. Upon arrival patient was seen and evaluated, labs and imaging were ordered A 2 L IV fluid bolus was given and morphine was ordered for pain Labs were unremarkable, however computed tomography scan is suggestive of a mechanical small bowel obstruction with small bowel dilatation up to 4 cm. Patient was reevaluated, she reports no improvement in her discomfort after IV morphine, she tolerated by mouth contrast without vomiting She was updated on CT findings of bowel obstruction and plan for admission Patient's lab and imaging findings were again discussed with surgeon Dr. Pathak who requested the patient be admitted, nothing by mouth diet, IV fluids, Dilaudid when necessary for pain Admission orders were placed - Lab Data Result diagrams: 05/05/18 22:35 05/05/18 22:35 Lab Results 05/05/18 05/05/18 05/05/18 Range/Units 22:35 22:35 22:35 WBC 8.7 (3.8-10.6) k/uL RBC 4.70 (3.80-5.40) m/uL Hgb 14.2 (11.4-16.0) gm/dL Hct 42.4 (34.0-46.0) % MCV 90.3 (80.0-100.0) fL MCH 30.3 (25.0-35.0) pg MCHC 33.6 (31.0-37.0) g/dL RDW 13.4 (11.5-15.5) % Plt Count 199 (150-450) k/uL Neutrophils % 65 % Lymphocytes % 21 % Monocytes % 7 % Eosinophils % 5 % Basophils % 0 % Neutrophils # 5.6 (1.3-7.7) k/uL Lymphocytes # 1.8 (1.0-4.8) k/uL Monocytes # 0.6 (0-1.0) k/uL Eosinophils # 0.4 (0-0.7) k/uL Basophils # 0.0 (0-0.2) k/uL PT (9.0-12.0) sec INR (<1.2) APTT (22.0-30.0) sec Sodium 141 (137-145) mmol/L Potassium 4.4 (3.5-5.1) mmol/L Chloride 101 (98-107) mmol/L Carbon Dioxide 31 H (22-30) mmol/L Anion Gap 9 mmol/L BUN 14 (7-17) mg/dL Creatinine 0.62 (0.52-1.04) mg/dL Est GFR (CKD-EPI)AfAm >90 (>60 ml/min/1.73 sqM) Est GFR (CKD-EPI)NonAf >90 (>60 ml/min/1.73 sqM) Glucose 96 (74-99) mg/dL Plasma Lactic Acid Rubens 0.8 (0.7-2.0) mmol/L Calcium 10.0 (8.4-10.2) mg/dL Total Bilirubin 0.4 (0.2-1.3) mg/dL AST 22 (14-36) U/L ALT 22 (9-52) U/L Alkaline Phosphatase 73 (38-126) U/L Total Protein 7.1 (6.3-8.2) g/dL Albumin 4.3 (3.5-5.0) g/dL Amylase 40 (30-110) U/L Lipase 51 (23-300) U/L Urine Color Urine Appearance (Clear) Urine pH (5.0-8.0) Ur Specific [place] (1.001-1.035) Urine Protein (Negative) Urine Glucose (UA) (Negative) Urine Ketones (Negative) Urine Blood (Negative) Urine Nitrite (Negative) Urine Bilirubin (Negative) Urine Urobilinogen (<2.0) mg/dL Ur Leukocyte Esterase (Negative) Urine RBC (0-5) /hpf Urine WBC (0-5) /hpf Ur Squamous Epith Cells (0-4) /hpf Urine Mucus (None) /hpf 05/05/18 05/05/18 Range/Units 22:35 22:35 WBC (3.8-10.6) k/uL RBC (3.80-5.40) m/uL Hgb (11.4-16.0) gm/dL Hct (34.0-46.0) % MCV (80.0-100.0) fL MCH (25.0-35.0) pg MCHC (31.0-37.0) g/dL RDW (11.5-15.5) % Plt Count (150-450) k/uL Neutrophils % % Lymphocytes % % Monocytes % % Eosinophils % % Basophils % % Neutrophils # (1.3-7.7) k/uL Lymphocytes # (1.0-4.8) k/uL Monocytes # (0-1.0) k/uL Eosinophils # (0-0.7) k/uL Basophils # (0-0.2) k/uL PT 9.8 (9.0-12.0) sec INR 1.0 (<1.2) APTT 24.2 (22.0-30.0) sec Sodium (137-145) mmol/L Potassium (3.5-5.1) mmol/L Chloride (98-107) mmol/L Carbon Dioxide (22-30) mmol/L Anion Gap mmol/L BUN (7-17) mg/dL Creatinine (0.52-1.04) mg/dL Est GFR (CKD-EPI)AfAm (>60 ml/min/1.73 sqM) Est GFR (CKD-EPI)NonAf (>60 ml/min/1.73 sqM) Glucose (74-99) mg/dL Plasma Lactic Acid [place] (0.7-2.0) mmol/L Calcium (8.4-10.2) mg/dL Total Bilirubin (0.2-1.3) mg/dL AST (14-36) U/L ALT (9-52) U/L Alkaline Phosphatase (38-126) U/L Total Protein (6.3-8.2) g/dL Albumin (3.5-5.0) g/dL Amylase (30-110) U/L Lipase (23-300) U/L Urine Color Yellow Urine Appearance Clear (Clear) Urine pH 8.0 (5.0-8.0) Ur Specific [place] 1.018 (1.001-1.035) Urine Protein Trace H (Negative) Urine Glucose (UA) Negative (Negative) Urine Ketones Negative (Negative) Urine Blood Negative (Negative) Urine Nitrite Negative (Negative) Urine Bilirubin Negative (Negative) Urine Urobilinogen <2.0 (<2.0) mg/dL Ur Leukocyte Esterase Small H (Negative) Urine RBC 1 (0-5) /hpf Urine WBC 5 (0-5) /hpf Ur Squamous Epith Cells 2 (0-4) /hpf Urine Mucus Rare H (None) /hpf Disposition Clinical Impression: Small bowel obstruction Disposition: ADMITTED IP TO THIS [facility] Condition: Stable Is patient prescribed a controlled substance at d/c from ED?: No Referrals: None,Stated [Primary Care Provider] - 1-2 days
--- NOTE | 2018-05-05 23:33 | CT ---
EXAMINATION TYPE: CT abdomen pelvis w con DATE OF EXAM: 05/05/2018 COMPARISON: 04/04/2018 HISTORY: Abd pain CT DLP: 1351.70 mGycm Automated exposure control for dose reduction was used. TECHNIQUE: Helical acquisition of images was performed from the lung bases through the pelvis. CONTRAST: Performed with Oral Contrast and with IV Contrast, patient injected with 100 mL of Isovue 300. FINDINGS: The lung bases are clear of consolidation. There is no pleural effusion. Heart size is normal. There are surgical clips at the gastric fundus with apparent gastrojejunostomy. There are multiple surgical clips in the left upper quadrant involving mid jejunum. Liver and spleen appear normal. There is no pancreatic mass. There is no adrenal mass. Kidneys show s atisfactory contrast opacification. There is no hydronephrosis. There are some dilated small bowel lo ops in the mid abdomen. These measure up to 4 cm. The distal small bowel is not dilated. There is a 6 mm anterior subluxation of L4 in relation L5. There is narrowing of lumbar disc spaces. There is no compression fracture. Bladder distends smoothly. There is no ascites. There is no evidence of pneumoperitoneum. There is no retroperitoneal adenopathy. IMPRESSION: THERE IS DILATED PROXIMAL SMALL BOWEL CONSISTENT WITH A MECHANICAL SMALL BOWEL OBSTRUCTION. THIS IS N EW COMPARED TO OLD CT SCAN. THERE IS CLEARING OF A CYSTIC FLUID COLLECTION ANTERIOR TO THE LIVER COMP ARED TO OLD EXAM THAT COULD BE A SEROMA.
[2018-05-06] MEDS ORDERED: ONDANSETRON 4 MG/2 ML VIAL IVP PRN (00:34)
[2018-05-06] MEDS ORDERED: NALOXONE 0.4 MG/ML 1 ML VIAL IV PRN (00:34)
[2018-05-06] MEDS: HYDROmorphone 1 MG/ML 1 ML SYRINGE IVP PRN ×7 (00:52→23:10)
[2018-05-06] MEDS: SODIUM CHLORIDE 0.9% 1,000 ML IV SCH ×5 (00:57→22:07)
[2018-05-06 02:12] VITALS: BMI 35.4
[2018-05-06 07:40] LABS: Glucose,Whole Blood 110 mg/dL (75-99)
[2018-05-06] MEDS ORDERED: ceFAZolin IN SWFI 2 GM/20 ML SYRINGE IVP ONE (08:01)
[2018-05-06] MEDS: PANTOPRAZOLE 40 MG/10 ML VIAL IV SCH (08:23)
[2018-05-06] MEDS: HEPARIN SODIUM,PORCINE 5,000 UNIT/ML 1 ML VIAL SQ SCH ×2 (08:23→15:53)
--- NOTE | 2018-05-06 09:55 | P.GSHP ---
History of Present Illness H&P Date: 05/06/18 CHIEF COMPLAINT: Small bowel obstruction HISTORY OF PRESENT ILLNESS: The patient is a 57-year-old female who presented with 2 day history of intractable nausea and vomiting including generalized abdominal pain. She has history of lysis of adhesions performed almost 4 days ago. She reports new gastroesophageal reflux disease including inability pass flatus. Her last bowel movement was yesterday morning. Since the day, she still reports moderate abdominal pain. She reports no passage of flatus including abdominal distention. CT of the abdomen and pelvis consistent with small bowel obstruction hence her admission. She has a pertinent history of gastric bypass. PAST MEDICAL HISTORY: Please see list. PAST SURGICAL HISTORY: Please see list. MEDICATIONS: Please see list. ALLERGIES: Please see list. SOCIAL HISTORY: No illicit drug use FAMILY HISTORY: No reports of Crohn disease or ulcerative colitis. REVIEW OF ORGAN SYSTEMS: GI: Denies any blood in stools or constipation. History of gastric esophageal reflux disease CONSTITUTIONAL: Denies any fever or chills. Intentional weight loss over 80 pounds from July 2017 gastric bypass HEENT: Denies any trouble with vision, hearing or nosebleeds. No difficulty swallowing. LYMPHATIC: The patient denies any lumps and bumps around the neck. ENDOCRINE: Denies any thyroid disorders. Denies any blood sugar glucose intolerance. RESPIRATORY: Denies pneumonia. Denies any troubles with breathing or dyspnea on exertion. CARDIOVASCULAR: Denies any chest pain, palpitations, or recent heart attacks. GENITOURINARY: Denies any blood in urine or increased urinary frequency. MUSCULOSKELETAL: Denies any back pain, stiffness, joint arthritis. NEUROLOGIC: Denies any numbness or tingling along the distal extremities. No seizure disorders or headaches. PSYCHIATRIC: Denies depression or suidical ideation. HEMATOLOGIC: Denies any abnormal bleeding or bruising. BREASTS: Denies any breast lumps, pain or nipple discharge. PHYSICAL EXAM: GENERAL: Well developed and in mild distress. HEENT: No sclera icterus. Extraocular movements grossly intact. Dry buccal mucosa. Head is atraumatic, normocephalic. Hears conversational speech. No nasal drainage. NECK: Supple without lymphadenopathy. No JV distention. CHEST: Non-labored respirations and equal bilateral excursions. CARDIOVASCULAR: Regular rate and rhythm. Palpable 2+ radial pulses. ABDOMEN: Soft, tender generalized. No peritonitis. Has distention. MUSCULOSKELETAL: No clubbing, cyanosis or edema. NEUROLOGIC: No focal or lateralizing signs. Cranial nerves II-12 grossly intact PSYCH: Appropriate affect. Alert and oriented to person, place and time. SKIN: Poor skin turgor. Well perfused. ASSESSMENT: 1. Small bowel obstruction PLAN: 1. With a history of gastric bypass, she is high risk for internal hernia causing her bowel obstruction. Recommend diagnostic laparoscopy with potential lysis of adhesions 2. Full inpatient hospitalization anticipated greater than 2 days 3. DVT prophylaxis 4. Antibiotic prophylaxis 5. Nothing by mouth at this time Past Medical History Past Medical History: Hypertension, Osteoarthritis (OA), Pulmonary Embolus (PE) Additional Past Medical History / Comment(s): HERNIA History of Any Multi-Drug Resistant Organisms: None Reported Past Surgical History: Bariatric Surgery, Bladder Surgery, Cholecystectomy, Hernia Repair, Hysterectomy, Orthopedic Surgery Additional Past Surgical History / Comment(s): gastric sleeve with reversal and [place] EN Y, right shoulder, bilateral hand, skin grafts to legs, COLONOSCOPIES, EGD'S Past Anesthesia/Blood Transfusion Reactions: No Reported Reaction Past Psychological History: Anxiety, Depression Smoking Status: Former smoker Past Alcohol Use History: None Reported Past Drug Use History: None Reported - Past Family History Father Family Medical History: Cancer Mother Additional Family Medical History / Comment(s): Heart attack while on the toilet. Medications and Allergies Home Medications Medication Instructions Recorded Confirmed Type Acetaminophen [Tylenol] 650 mg PO Q4H PRN 04/04/18 05/06/18 History Cetirizine HCl [Zyrtec] 10 mg PO DAILY 04/04/18 05/06/18 History Furosemide [Lasix] 20 mg PO BID 04/04/18 05/06/18 History Lisinopril [Zestril] 2.5 mg PO DAILY 04/04/18 05/06/18 History Multivitamins, Thera [Multivitamin 1 tab PO DAILY 04/04/18 05/06/18 History (formulary)] Venlafaxine HCl [Effexor] 100 mg PO TID 04/04/18 05/06/18 History busPIRone HCL 15 mg PO TID 04/04/18 05/06/18 History lamoTRIgine [LaMICtal] 100 mg PO BID 04/04/18 05/06/18 History Simethicone 40 mg/0.6 ml Drops 40 mg PO Q6HR PRN #30 ml 04/24/18 05/06/18 Rx [Mylicon Drops] Melatonin 10 mg PO HS PRN 05/06/18 05/06/18 History Allergies Allergy/AdvReac Type Severity Reaction Status Date / Time No Known Allergies Allergy Verified 05/06/18 08:13 Surgical - Exam Vital Signs Temp Pulse Resp BP Pulse Ox 98.5 F 76 20 133/91 99 05/05/18 21:53 05/05/18 21:53 05/05/18 21:53 05/05/18 21:53 05/05/18 21:53 Results - Labs 05/05/18 22:35 05/05/18 22:35 Abnormal Lab Results - Last 24 Hours (Table) 05/05/18 05/05/18 05/06/18 Range/Units 22:35 22:35 07:38 Carbon Dioxide 31 H (22-30) mmol/L POC Glucose (mg/dL) 110 H (75-99) mg/dL Urine Protein Trace H (Negative) Ur Leukocyte Esterase Small H (Negative) Urine Mucus Rare H (None) /hpf Diabetes panel 05/05/18 Range/Units 22:35 Sodium 141 (137-145) mmol/L Potassium 4.4 (3.5-5.1) mmol/L Chloride 101 (98-107) mmol/L Carbon Dioxide 31 H (22-30) mmol/L BUN 14 (7-17) mg/dL Creatinine 0.62 (0.52-1.04) mg/dL Glucose 96 (74-99) mg/dL Calcium 10.0 (8.4-10.2) mg/dL AST 22 (14-36) U/L ALT 22 (9-52) U/L Alkaline Phosphatase 73 (38-126) U/L Total Protein 7.1 (6.3-8.2) g/dL Albumin 4.3 (3.5-5.0) g/dL Calcium panel 05/05/18 Range/Units 22:35 Calcium 10.0 (8.4-10.2) mg/dL Albumin 4.3 (3.5-5.0) g/dL Pituitary panel 05/05/18 Range/Units 22:35 Sodium 141 (137-145) mmol/L Potassium 4.4 (3.5-5.1) mmol/L Chloride 101 (98-107) mmol/L Carbon Dioxide 31 H (22-30) mmol/L BUN 14 (7-17) mg/dL Creatinine 0.62 (0.52-1.04) mg/dL Glucose 96 (74-99) mg/dL Calcium 10.0 (8.4-10.2) mg/dL Adrenal panel 05/05/18 Range/Units 22:35 Sodium 141 (137-145) mmol/L Potassium 4.4 (3.5-5.1) mmol/L Chloride 101 (98-107) mmol/L Carbon Dioxide 31 H (22-30) mmol/L BUN 14 (7-17) mg/dL Creatinine 0.62 (0.52-1.04) mg/dL Glucose 96 (74-99) mg/dL Calcium 10.0 (8.4-10.2) mg/dL Total Bilirubin 0.4 (0.2-1.3) mg/dL AST 22 (14-36) U/L ALT 22 (9-52) U/L Alkaline Phosphatase 73 (38-126) U/L Total Protein 7.1 (6.3-8.2) g/dL Albumin 4.3 (3.5-5.0) g/dL - Imaging CT scan - abdomen: report reviewed, image reviewed CT scan - pelvis: report reviewed, image reviewed (Findings consistent with bowel obstruction mechanical) Assessment and Plan (1) Hx of gastric bypass Current Visit: Yes Status: Acute Code(s): Z98.84 - BARIATRIC SURGERY STATUS SNOMED Code(s): 646825435 (2) Hypertensive heart disease Current Visit: Yes Status: Acute Code(s): I11.9 - HYPERTENSIVE HEART DISEASE WITHOUT HEART FAILURE SNOMED Code(s): 30758266 (3) Morbid obesity due to excess calories Current Visit: Yes Status: Acute Code(s): E66.01 - MORBID (SEVERE) OBESITY DUE TO EXCESS CALORIES SNOMED Code(s): 142385592 (4) BMI 35.0-35.9,adult Current Visit: Yes Status: Acute Code(s): Z68.35 - BODY MASS INDEX (BMI) 35.0-35.9, ADULT SNOMED Code(s): 132341954 (5) Gastroesophageal reflux disease Current Visit: Yes Status: Acute Code(s): K21.9 - GASTRO-ESOPHAGEAL REFLUX DISEASE WITHOUT ESOPHAGITIS SNOMED Code(s): 930663613 (6) Barretts esophagus Current Visit: Yes Status: Acute Code(s): K22.70 - OATES'S ESOPHAGUS WITHOUT DYSPLASIA SNOMED Code(s): 445822314 (7) Small bowel obstruction Current Visit: Yes Status: Acute Code(s): K56.609 - UNSP INTESTNL OBST, UNSP TO PARTIAL VERSUS COMPLETE OBST SNOMED Code(s): 979135185
[2018-05-06 12:36] LABS: Glucose,Whole Blood 91 mg/dL (75-99)
[2018-05-06 17:17] LABS: Glucose,Whole Blood 83 mg/dL (75-99)
[2018-05-06] MEDS ORDERED: DEXAMETHASONE SOD PHOS (MDV) 100 MG/10 ML VIAL ONE (19:13)
[2018-05-06] MEDS ORDERED: PROPOFOL 10 MG/ML 20 ML VIAL IV ONE (19:13)
[2018-05-06] MEDS ORDERED: HYDROmorphone (PF) 1 MG/ML ONE (19:13)
[2018-05-06] MEDS ORDERED: NEOSTIGMINE 1 MG/ML 10 ML VIAL ONE (19:13)
[2018-05-06] MEDS ORDERED: LIDOCAINE 1% INJ 10MG/ML (20 ML MDV) ONE (19:13)
[2018-05-06] MEDS ORDERED: GLYCOPYRROLATE 0.2 MG/ML 2 ML VIAL ONE (19:13)
[2018-05-06] MEDS ORDERED: MIDAZOLAM 2 MG/2 ML VIAL ONE (19:13)
[2018-05-06] MEDS ORDERED: SUCCINYLCHOLINE CHLORIDE 100 MG/5 ML SYR IV ONE (19:13)
[2018-05-06] MEDS ORDERED: fentaNYL (PF) 50 MCG/ML 2 ML AMP ONE (19:13)
[2018-05-06] MEDS ORDERED: IV FLUID CONTINUATION 1,000 ML IV ONE (19:13)
[2018-05-06] MEDS ORDERED: ROCURONIUM BROMIDE 10 MG/ML 10 ML VIAL IV ONE (19:13)
[2018-05-06] MEDS ORDERED: BUPIVACAIN-EPI 0.25%-1:200,000 30 ML VIAL SQ ONE (19:44)
[2018-05-06] MEDS ORDERED: LACTATED RINGERS 1,000 ML IV ONE ×2 (19:48)
[2018-05-06] MEDS ORDERED: HYDROcodone/APAP 5-325MG 1 EACH TAB PO PRN (21:24)
[2018-05-06] MEDS ORDERED: HYDROmorphone 1 MG/ML 1 ML SYRINGE IVP PRN (21:24)
--- NOTE | 2018-05-06 21:39 | P.OP ---
Date of Procedure: 05/06/18 Description of Procedure: SURGEON: MIKAELA EASTON MD CREATIVE MANAGER: None. PREOPERATIVE DIAGNOSES: 1. Diffuse abdominal pain 2. Small bowel obstruction. 3. Status post gastric bypass. 4. Status post massive weight loss, over 90+ pounds 5. Morbid obesity due to excess calories 6. Body mass index reduced from 49.2 down to 35.4 7. Hypertensive heart disease POSTOPERATIVE DIAGNOSES: 1. Diffuse abdominal pain 2. Small bowel obstruction. 3. Status post gastric bypass. 4. Status post massive weight loss, over 90+ pounds 5. Morbid obesity due to excess calories 6. Body mass index reduced from 49.2 down to 35.4 7. Hypertensive heart disease 8. Small bowel volvulus involving the jejunum 9. Adhesive band disease involving left upper quadrant PROCEDURES PERFORMED: 1. Diagnostic laparoscopy. 2. Laparoscopic lysis of adhesion 3. Laparoscopic reduction of small bowel volvulus Anesthesia: GETA, local Estimated Blood Loss (ml): 5 Pathology: none sent Condition: stable Disposition: floor OPERATIVE FINDINGS: 1. Adhesive band disease involving jejunojejunostomy causing a closed-loop small bowel obstruction of her limb 2. Small bowel volvulus involving the crista limb at its jejunojejunostomy 3. Small bowel viable INDICATIONS: The patient is a 57-year-old female who presents with acute small bowel obstruction. CT of the abdomen and pelvis confirmed a mechanical small bowel obstruction. Clinically the patient had closed-loop obstruction with inability to pass flatus intractable nausea and vomiting. Benefits and risks, including possibility of open technique were described at length. Informed consent was obtained. DESCRIPTION OF PROCEDURE: Patient was brought to the operating room and laid in supine position. After general induction, the abdomen was prepped and draped in standard sterile fashion. Prior to incision, a timeout protocol was confirmed with surgical team regarding patient's name including procedure to be performed. Preoperative medications including antibiotics were given. Additionally, bilateral SCDs including heparin was administered. A 5 mm laparoscopic trocar entry performed of the left upper quadrant after anesthetizing the skin with local anesthetic. The abdomen was insufflated to 15 mmHg pressure she tolerated well. Diagnostic laparoscopy demonstrated moderately dilated crista. The common channel and distal small bowel and cecum were decompressed. Along the bilateral groins, no inguinal hernias were identified. No incisional hernias were found. Three 5-mm trochars were placed along the right lateral abdominal wall along her previous incisions. Two 5-mm trocars were placed along the left lateral abdominal wall. The base of the cecum was without inflammation. The appendix was unremarkable. The small bowel was investigated from the terminal ileum proximally. Small bowel volvulus was found incorporating the crista limb at the jejunojejunostomyat the left upper quadrant. Attempts to reduce the Crista limb through the internal hernia created by the jejunum was attempted, unsuccessful. A thin adhesive band 5-mm was identified at the jejunojejunostomy to the root of the mesentery and resected using Harmonic scalpel. Once released, the crista limb was reduced from its volvulus. The small bowel obstruction was relieved. In anterograde x 2, the gastric pouch including Crista limb was investigated towards the jejunojejunostomy. No Munoz's defect was identified. The small bowel was re-investigated in a retrograde fashion x 2 as well as the antegrade fashion to confirm reduction of any small bowel volvulus. Final inspection of the abdomen demonstrated adequate hemostasis including no enterotomies. All instruments and pneumoperitoneum were evacuated from the abdominal cavity. All local was infiltrated in all wounds for postop analgesia. The skin was cleansed with hydrogen peroxide. Liquid glue was applied to the skin after re- approximating the incisions with 4-0 Monocryl as described. At the end of the procedure, needle, sponge, and instrument count was verified correct by the orthodontic laboratory technician. The patient had tolerated the procedure well and was taken to the postanesthesia care unit in stable condition.
[2018-05-06] MEDS: METOCLOPRAMIDE 5 MG/ML 2 ML VIAL IVP SCH (22:07)
[2018-05-07] MEDS: HEPARIN SODIUM,PORCINE 5,000 UNIT/ML 1 ML VIAL SQ SCH ×2 (02:23→08:02)
[2018-05-07] MEDS: ceFAZolin IN SWFI 2 GM/20 ML SYRINGE IVP SCH ×2 (02:23→11:03)
[2018-05-07] MEDS: SODIUM CHLORIDE 0.9% 1,000 ML IV SCH ×2 (05:59→13:38)
[2018-05-07] MEDS: METOCLOPRAMIDE 5 MG/ML 2 ML VIAL IVP SCH ×2 (05:59→12:17)
[2018-05-07 06:54] LABS: Basophils % (A) 0 %; Eosinophils % (A) 0 %; HCT 39.9 % (34.0-46.0); HGB 12.5 gm/dL (11.4-16.0); Lymphocytes # (A) 0.6 k/uL (1.0-4.8); Lymphocytes % (A) 8 %; MCH 29.1 pg (25.0-35.0); MCHC 31.4 g/dL (31.0-37.0); MCV 92.6 fL (80.0-100.0); Mean Platelet Volume 9.6; Monocytes # (A) 0.2 k/uL (0-1.0); Monocytes % (A) 3 %; Neutrophils # (A) 6.7 k/uL (1.3-7.7); Neutrophils % (A) 88 %; Platelet Count 181 k/uL (150-450); RBC 4.31 m/uL (3.80-5.40); RDW 13.3 % (11.5-15.5); WBC 7.6 k/uL (3.8-10.6)
[2018-05-07 07:09] LABS: ALT 16 U/L (9-52); AST 15 U/L (14-36); Albumin 3.4 g/dL (3.5-5.0); Alkaline Phosphatase 63 U/L (38-126); Anion Gap 10 mmol/L; Blood Urea Nitrogen 9 mg/dL (7-17); Calcium 9.6 mg/dL (8.4-10.2); Carbon Dioxide 24 mmol/L (22-30); Chloride 108 mmol/L (98-107); Glucose 110 mg/dL (74-99); Potassium 4.6 mmol/L (3.5-5.1); Sodium 142 mmol/L (137-145); Total Bilirubin 0.3 mg/dL (0.2-1.3); Total Protein 5.8 g/dL (6.3-8.2)
[2018-05-07] MEDS: HYDROmorphone 1 MG/ML 1 ML SYRINGE IVP PRN (07:17)
[2018-05-07 07:19] LABS: Glucose,Whole Blood 101 mg/dL (75-99)
[2018-05-07] MEDS: PANTOPRAZOLE 40 MG/10 ML VIAL IV SCH (08:02)
[2018-05-07 09:00] VITALS: TEMP 98.2
[2018-05-07] MEDS ORDERED: MELATONIN 5 MG TABLET PO PRN (10:37)
[2018-05-07] MEDS ORDERED: SIMETHICONE 40 MG/0.6 ML DROPS 2,000 MG/30 ML BOTTLE PO PRN (10:37)
[2018-05-07] MEDS ORDERED: ACETAMINOPHEN TAB 325 MG TAB PO PRN (10:37)
--- NOTE | 2018-05-07 11:00 | P.PN ---
<Sofia Mccarty M - Last Filed: 05/07/18 10:59> Subjective Progress Note Date: 05/07/18 A 57-year-old female presented on the day of admission to the emergency room reportedly had experienced a 2 day duration of intractable nausea vomiting increase abdominal pain. Patient does have a history 4 days prior of undergoing lysis of adhesions. Patient reports new esophageal reflex with inability to pass gas. Last bowel movement was reportedly day before coming into the emergency room. Patient stated that she did take [place] at home and been using stool softeners at least daily. Patient reports was having abdominal pain. Patient does have a history of gastric bypass. CAT scan of the abdomen pelvis obtained in the emergency room was consistent with a small bowel obstruction. Given the above clinical presentation the patient was admitted to the attending. On the day of my exam the patient's abdomen was soft surgical dressing sites dry patient stated passing gas no stool tolerating clear liquid diet. Patient' s teary-eyed this morning is requesting her antidepressive meds be restarted pain medication effective for pain control no further abdominal pain when questioning On May 06 the patient underwent a diagnostic laparoscopic laparoscopic lysis of adhesions, left copy reduction of small bowel [email or web address] Objective - Vital Signs Vital signs: Vital Signs Temp 98.2 F 05/07/18 08:31 Pulse 78 05/07/18 08:31 Resp 16 05/07/18 08:31 BP 129/78 05/07/18 08:31 Pulse Ox 95 05/07/18 08:31 Intake & Output 05/06/18 05/07/18 05/07/18 18:59 06:59 18:59 Intake Total 1350 Output Total 100 5 Balance -100 1345 Intake: IV 1350 Output: Emesis 100 Estimated Blood Loss 5 Other: # Voids 1 1 - Exam Physical exam 57-year-old female up ambulatory on the unit appears in no acute distress is teary-eyed states she needs her antidepressive meds restarted Lungs adequate air movement bilaterally on room air Heart S1-S2 audible regular Abdomen obese soft not distended denying abdominal pain surgical dressing sites dry urinating no difficulty passing gas belching no stool no reports of nausea vomiting surgical tenderness appropriate Extremities chronic venous stasis to the lower extremities bilaterally - Labs CBC & Chem 7: 05/07/18 06:39 05/07/18 06:39 Labs: Abnormal Lab Results - Last 24 Hours (Table) 05/07/18 05/07/18 05/07/18 Range/Units 06:39 06:39 07:06 Lymphocytes # 0.6 L (1.0-4.8) k/uL Chloride 108 H (98-107) mmol/L Glucose 110 H (74-99) mg/dL POC Glucose (mg/dL) 101 H (75-99) mg/dL Total Protein 5.8 L (6.3-8.2) g/dL Albumin 3.4 L (3.5-5.0) g/dL Assessment and Plan Assessment: Impression Present on admission diffuse abdominal pain suspect due to lysis of adhesions with small bowel volvulus involving the jejunum Statud post May 06 diagnostic laparoscopic, laparoscopic lysis of adhesions, laparoscopic reduction of small bowel volvulus. 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 anxiety depressive disorder Small bowel volvulus involving the arthur limb at its jejunojejunostomy Small bowel viable Adhesive band disease involving jejunojejunostomy causing a closed-loop small bowel obstruction of her limb plan advance diet as tolerated Encourage ambulation Resume home meds as appropriate Continue postop surgical care Monitor labs Anticipate discharge in 24 hours DVT and GI prophylaxis heparin and protonix The above impression and plan of care have been discussed and directed by signing physician. Sofia Mccarty nurse practitioner acting as scribe for signing physician. <Ania Pathak N - Last Filed: 05/08/18 07:04> Objective - Vital Signs Vital signs: Vital Signs Temp 98.2 F 05/07/18 12:19 Pulse 81 05/07/18 12:19 Resp 14 05/07/18 12:19 BP 128/85 05/07/18 12:19 Pulse Ox 95 05/07/18 08:31 Intake & Output 05/07/18 05/08/18 05/08/18 18:59 06:59 18:59 Intake Total 300 Balance 300 Intake: Oral 300 Other: # Voids 2 - Labs CBC & Chem 7: 05/07/18 06:39 05/07/18 06:39 Labs: Abnormal Lab Results - Last 24 Hours (Table) 05/07/18 05/07/18 Range/Units 06:39 07:06 Chloride 108 H (98-107) mmol/L Glucose 110 H (74-99) mg/dL POC Glucose (mg/dL) 101 H (75-99) mg/dL Total Protein 5.8 L (6.3-8.2) g/dL Albumin 3.4 L (3.5-5.0) g/dL Assessment and Plan (1) Hx of gastric bypass Status: Acute Code(s): Z98.84 - BARIATRIC SURGERY STATUS SNOMED Code(s): 865523246 (2) Hypertensive heart disease Status: Acute Code(s): I11.9 - HYPERTENSIVE HEART DISEASE WITHOUT HEART FAILURE SNOMED Code(s): 91348829 (3) Morbid obesity due to excess calories Status: Acute Code(s): E66.01 - MORBID (SEVERE) OBESITY DUE TO EXCESS CALORIES SNOMED Code(s): 588201671 (4) BMI 35.0-35.9,adult Status: Acute Code(s): Z68.35 - BODY MASS INDEX (BMI) 35.0-35.9, ADULT SNOMED Code(s): 279285688 (5) Gastroesophageal reflux disease Status: Acute Code(s): K21.9 - GASTRO-ESOPHAGEAL REFLUX DISEASE WITHOUT ESOPHAGITIS SNOMED Code(s): 286414708 (6) Barretts esophagus Status: Acute Code(s): K22.70 - OATES'S ESOPHAGUS WITHOUT DYSPLASIA SNOMED Code(s): 008180372 (7) Small bowel obstruction Status: Acute Code(s): K56.609 - UNSP INTESTNL OBST, UNSP TO PARTIAL VERSUS COMPLETE OBST SNOMED Code(s): 997025005
[2018-05-07] MEDS ORDERED: Acetaminophen-Codeine 300-30mg TAB PO PRN (11:28)
[2018-05-07] MEDS ORDERED: lamoTRIgine 100 MG TAB PO STA (11:53)
[2018-05-07] MEDS ORDERED: lamoTRIgine 100 MG TAB PO SCH ×2 (12:00→21:00)
[2018-05-07 12:42] VITALS: BP 128/85; PULSE 81; RESP 14
--- NOTE | 2018-05-07 13:32 | P.DS ---
<Sofia Mccarty - Last Filed: 05/07/18 13:21> Providers Date of admission: 05/06/18 00:41 Expected date of discharge: 05/07/18 Attending physician: Ania Pathak Primary care physician: Stated None Hospital Course: A 57-year-old female presented on the day of admission to the emergency room reportedly had experienced a 2 day duration of intractable nausea vomiting increase abdominal pain. Patient does have a history 4 days prior of undergoing lysis of adhesions. Patient reports new esophageal reflex with inability to pass gas. Last bowel movement was reportedly day before coming into the emergency room. Patient stated that she did take [place] at home and been using stool softeners at least daily. Patient reports was having abdominal pain. Patient does have a history of gastric bypass. CAT scan of the abdomen pelvis obtained in the emergency room was consistent with a small bowel obstruction. Postop patient was up ambulatory on the unit surgical dressings dry passing gas no stool tolerating diet pain medication effective for pain control and was felt appropriate to be discharged home patient was instructed on using milk of magnesia [id number] constipation. On May 06 the patient underwent a diagnostic laparoscopic laparoscopic lysis of adhesions, left copy reduction of small bowel volvulus Impression discharge diagnosis Present on admission diffuse abdominal pain suspect due to lysis of adhesions with small bowel volvulus involving the jejunum Statud post May 06 diagnostic laparoscopic, laparoscopic lysis of adhesions, laparoscopic reduction of small bowel volvulus. 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 anxiety depressive disorder Small bowel volvulus involving the arthur limb at its jejunojejunostomy Small bowel viable Adhesive band disease involving jejunojejunostomy causing a closed-loop small bowel obstruction of her limb The above impression and plan of care have been discussed and directed by signing physician. Sofia Mccarty nurse practitioner acting as scribe for signing physician. Patient Condition at Discharge: Stable Plan - Discharge Summary Discharge Rx Participant: Yes New Discharge Prescriptions: New Acetaminophen-Codeine 300-30mg [Tylenol w/codeine #3] 1 each PO Q4HR PRN #18 tab PRN Reason: Pain Continue Acetaminophen [Tylenol] 650 mg PO Q4H PRN PRN Reason: Pain Or Fever > 100.5 lamoTRIgine [LaMICtal] 100 mg PO BID busPIRone HCL 15 mg PO TID Multivitamins, Thera [Multivitamin (formulary)] 1 tab PO DAILY Furosemide [Lasix] 20 mg PO BID Lisinopril [Zestril] 2.5 mg PO DAILY Cetirizine HCl [Zyrtec] 10 mg PO DAILY Venlafaxine HCl [Effexor] 100 mg PO TID Simethicone 40 mg/0.6 ml Drops [Mylicon Drops] 40 mg PO Q6HR PRN #30 ml PRN Reason: Abdominal Distention Melatonin 10 mg PO HS PRN PRN Reason: Insomnia Discharge Medication List Acetaminophen [Tylenol] 650 mg PO Q4H PRN 04/04/18 [History] Cetirizine HCl [Zyrtec] 10 mg PO DAILY 04/04/18 [History] Furosemide [Lasix] 20 mg PO BID 04/04/18 [History] Lisinopril [Zestril] 2.5 mg PO DAILY 04/04/18 [History] Multivitamins, Thera [Multivitamin (formulary)] 1 tab PO DAILY 04/04/18 [History ] Venlafaxine HCl [Effexor] 100 mg PO TID 04/04/18 [History] busPIRone HCL 15 mg PO TID 04/04/18 [History] lamoTRIgine [LaMICtal] 100 mg PO BID 04/04/18 [History] Simethicone 40 mg/0.6 ml Drops [Mylicon Drops] 40 mg PO Q6HR PRN #30 ml [Rx] Melatonin 10 mg PO HS PRN 05/06/18 [History] Acetaminophen-Codeine 300-30mg [Tylenol w/codeine #3] 1 each PO Q4HR PRN #18 tab 05/07/18 [Rx] Follow up Appointment(s)/Referral(s): Ania Pathak MD [STAFF PHYSICIAN] - 05/14/18 ([facility] office) None,Stated [Primary Care Provider] - 1-2 days (follow up on may 14 in [place] as previously scheduled) Activity/Diet/Wound Care/Special Instructions: diet as tolerated. No tub bath for six weeks. Shower daily. No lifting over 10 pounds for the next 6 weeks. Use [id number] milk of magnesia for constipation May use ice packs to surgical site. No driving while taking narcotic for pain. Keep scheduled appointment with Dr. Pathak May 14 Call physician with any questions comments concerns worsening returning symptoms, fever 101.1 or higher, not tolerating diet, not tolerating fluids unable to empty bladder or pass gas. Discharge Disposition: HOME SELF-CARE <Ania Pathak N - Last Filed: 05/08/18 07:05> - Discharge Diagnosis(es) (1) Hx of gastric bypass Status: Acute (2) Hypertensive heart disease Status: Acute (3) Morbid obesity due to excess calories Status: Acute (4) BMI 35.0-35.9,adult Status: Acute (5) Gastroesophageal reflux disease Status: Acute (6) Barretts esophagus Status: Acute (7) Small bowel obstruction Status: Acute
[2018-05-07] MEDS ORDERED: VENLAFAXINE HCL 50 MG TAB PO SCH (16:00)
[2018-05-07] MEDS ORDERED: busPIRone HCl 5 MG TAB PO SCH (16:00)
[2018-05-07] MEDS ORDERED: FUROSEMIDE 20 MG TAB PO SCH (17:00)
[2018-05-08] MEDS ORDERED: LISINOPRIL 2.5 MG TAB PO SCH (09:00)
[2018-05-08] MEDS ORDERED: LORATADINE 10 MG TAB PO SCH (09:00)
[2018-05-08] MEDS ORDERED: MULTIVITAMINS, THERA 1 EACH TAB PO SCH (12:00)
== END 2018-05-07 14:15 | disposition home or self-care (01) | DRG 336 ==
LOC: EC 21:45 → 6PED 05-06 00:41
PROVIDERS: ADMIT Surgery Plastic and Reconstructive Surgery; ATTEND Surgery Plastic and Reconstructive Surgery
PROC: 0DNA4ZZ Release Jejunum, Percutaneous Endoscopic Approach (ICD-10-PCS; principal; 2018-05-06 17:35)
DX: K91.30 Postprocedural intestinal obstruction, unspecified as to partial versus complete (principal); K95.89 Other complications of other bariatric procedure; Y83.2 Surgical operation with anastomosis, bypass or graft as the cause of abnormal reaction of the patient, or of later complication, without mention of misadventure at the time of the procedure; E66.01 Morbid (severe) obesity due to excess calories; Z68.35 Body mass index [BMI] 35.0-35.9, adult; K22.70 Barrett's esophagus without dysplasia; Z86.711 Personal history of pulmonary embolism; F41.9 Anxiety disorder, unspecified; F32.9 Major depressive disorder, single episode, unspecified; Z82.49 Family history of ischemic heart disease and other diseases of the circulatory system; Z80.9 Family history of malignant neoplasm, unspecified; Z87.891 Personal history of nicotine dependence; I11.9 Hypertensive heart disease without heart failure; K21.0 Gastro-esophageal reflux disease with esophagitis; K66.0 Peritoneal adhesions (postprocedural) (postinfection); Z90.710 Acquired absence of both cervix and uterus
CPT/HCPCS: 36415; 74177; 80053; 81001; 82150; 83605; 83690; 85025; 85610; 85730; 96361; 96374; 96375; 99285

== ENCOUNTER 2018-11-22 16:43 | Inpatient (IN) | payer BC ==
[2018-11-22] MEDS ORDERED: SODIUM CHLORIDE 0.9% 500 ML 500 ML IV STA (17:14)
--- NOTE | 2018-11-22 17:21 | ED ---
GI Bleed HPI - General Chief complaint: GI Bleed Stated complaint: Rectal Bleeding, Low BP Time Seen by Provider: 11/22/18 16:58 Source: patient Mode of arrival: ambulatory Limitations: no limitations - History of Present Illness Initial comments: 57-year-old female patient presents to the emergency department today for evaluation of rectal bleeding. Patient states that she has had 2 bowel movements containing bright red blood with clots presence of clots. Patient states she is having mid abdominal pain. She denies any radiation of the pain to her back. States that she was vomiting and having diarrhea couple of days ago. States the bleeding started today. She denies any dizziness or weakness however she did check her blood pressure at home and did have low blood pressures in the 90s systolic. She denies any history of GI bleed. states she did take anti-inflammatories for a few days for a broken tooth. She did take a 3 day course of amoxicillin for the same. Last colonoscopy was last year, she did have 1 polyp which was biopsied and came back negative. She denies history of hemorrhoids. Denies any use of anti-coagulant or antiplatelet medications. Patient denies any recent rash, fever, chills, shortness breath, chest pain, sami k pain, numbness, tingling, dizziness, weakness, hematuria, dysuria, urinary urgency, urinary frequency, headache, visual changes, or any other complaints. - Related Data Home Medications Medication Instructions Recorded Confirmed Acetaminophen [Tylenol] 650 mg PO Q4H PRN 04/04/18 11/22/18 Cetirizine HCl [Zyrtec] 10 mg PO DAILY 04/04/18 11/22/18 Furosemide [Lasix] 20 mg PO BID 04/04/18 11/22/18 Lisinopril [Zestril] 2.5 mg PO DAILY 04/04/18 11/22/18 Multivitamins, Thera [Multivitamin 1 tab PO DAILY 04/04/18 11/22/18 (formulary)] Melatonin 10 mg PO HS PRN 05/06/18 11/22/18 Esomeprazole Magnesium [NexIUM] 20 mg PO DAILY 11/22/18 11/22/18 Ibuprofen [Motrin] 600 mg PO Q8HR PRN 11/22/18 11/22/18 Venlafaxine HCl [Effexor XR] 150 mg PO DAILY 11/22/18 11/22/18 lamoTRIgine [LaMICtal] 150 mg PO BID 11/22/18 11/22/18 Allergies Allergy/AdvReac Type Severity Reaction Status Date / Time No Known Allergies Allergy Verified 11/22/18 16:57 Review of Systems ROS Statement: Those systems with pertinent positive or pertinent negative responses have been documented in the HPI. ROS Other: All systems not noted in ROS Statement are negative. Past Medical History Past Medical History: Hypertension, Osteoarthritis (OA), Pulmonary Embolus (PE) Additional Past Medical History / Comment(s): HERNIA History of Any Multi-Drug Resistant Organisms: None Reported Past Surgical History: Bariatric Surgery, Bladder Surgery, Cholecystectomy, Hernia Repair, Hysterectomy, Orthopedic Surgery Additional Past Surgical History / Comment(s): gastric sleeve with reversal and [place] EN Y, right shoulder, bilateral hand, skin grafts to legs, COLONOSCOPIES, EGD'S Past Anesthesia/Blood Transfusion Reactions: No Reported Reaction Past Psychological History: Anxiety, Depression Smoking Status: Former smoker Past Alcohol Use History: None Reported Past Drug Use History: None Reported - Past Family History Father Family Medical History: Cancer Mother Additional Family Medical History / Comment(s): Heart attack while on the toilet. General Exam Limitations: no limitations General appearance: alert, in no apparent distress, other (physical well- developed, well-nourished adult female patient in no acute distress. Vital signs upon presentation are temperature 97.8F, pulse 89, respirations 20, blood pressure 109/72, pulse ox 98%. ) Eye exam: Present: normal appearance, PERRL, EOMI. Absent: scleral icterus, con junctival injection, periorbital swelling ENT exam: Present: normal exam, normal oropharynx, mucous membranes moist Respiratory exam: Present: normal lung sounds bilaterally. Absent: respiratory distress, wheezes, rales, rhonchi, stridor Cardiovascular Exam: Present: regular rate, normal rhythm, normal heart sounds. Absent: systolic murmur, diastolic murmur, rubs, gallop, clicks GI/Abdominal exam: Present: soft, tenderness (Left midabdomen tenderness), normal bowel sounds. Absent: distended, guarding, rebound, rigid Neurological exam: Present: alert, oriented X3, CN II-XII intact Psychiatric exam: Present: normal affect, normal mood Skin exam: Present: warm, dry, intact, normal color. Absent: rash Course Vital Signs 11/22/18 11/22/18 16:46 19:07 Temperature 97.8 F Pulse Rate 89 78 Respiratory 20 18 Rate Blood Pressure 109/72 113/71 O2 Sat by Pulse 98 100 Oximetry Medical Decision Making - Medical Decision Making 57-year-old female patient presented to emergency department today for ev aluation of rectal bleeding. Patient had 2 bowel movements containing bright red to dark red blood. Patient is also reporting some mid abdominal pain. Physical examination did reveal some left midabdomen tenderness. Labs reviewed and did reveal a hemoglobin of 9.1. White blood cell count was normal. Given abdominal tenderness. Did perform CT abdomen and pelvis with contrast, this did show some inflammatory changes to the stomach. Patient was given pain medication and IV fluids here in the emergency department. Upon reevaluation patient does report improvement of symptoms. She did have another dark red bowel movement here in the emergency department. Patient will be admitted to the hospital for GI consult. We will start Pepcid for gastric inflammation. I did discuss the case with Melva Hua NP covering for Dr. Galeano who accepts admission. Patient agrees with this plan. - Lab Data Result diagrams: 11/22/18 17:45 11/22/18 17:45 Lab Results 11/22/18 11/22/18 11/22/18 Range/Units 17:45 17:45 17:45 WBC 7.6 (3.8-10.6) k/uL RBC 3.11 L (3.80-5.40) m/uL Hgb 9.1 L (11.4-16.0) gm/dL Hct 27.0 L (34.0-46.0) % MCV 86.6 (80.0-100.0) fL MCH 29.2 (25.0-35.0) pg MCHC 33.7 (31.0-37.0) g/dL RDW 15.6 H (11.5-15.5) % Plt Count 201 (150-450) k/uL Neutrophils % 66 % Lymphocytes % 22 % Monocytes % 7 % Eosinophils % 1 % Basophils % 0 % Neutrophils # 5.0 (1.3-7.7) k/uL Lymphocytes # 1.7 (1.0-4.8) k/uL Monocytes # 0.5 (0-1.0) k/uL Eosinophils # 0.1 (0-0.7) k/uL Basophils # 0.0 (0-0.2) k/uL PT 9.9 (9.0-12.0) sec INR 0.9 (<1.2) APTT 22.5 (22.0-30.0) sec Sodium 137 (137-145) mmol/L Potassium 4.5 (3.5-5.1) mmol/L Chloride 102 (98-107) mmol/L Carbon Dioxide 28 (22-30) mmol/L Anion Gap 7 mmol/L BUN 31 H (7-17) mg/dL Creatinine 0.93 (0.52-1.04) mg/dL Est GFR (CKD-EPI)AfAm 79 (>60 ml/min/1.73 sqM) Est GFR (CKD-EPI)NonAf 68 (>60 ml/min/1.73 sqM) Glucose 79 (74-99) mg/dL Calcium 9.2 (8.4-10.2) mg/dL Total Bilirubin 0.4 (0.2-1.3) mg/dL AST 30 (14-36) U/L ALT 22 (9-52) U/L Alkaline Phosphatase 57 (38-126) U/L Troponin I (0.000-0.034) ng/mL Total Protein 5.7 L (6.3-8.2) g/dL Albumin 3.5 (3.5-5.0) g/dL Stool Occult Blood (Negative) Blood Type Blood Type Recheck Antibody Screen Spec Expiration Date 11/22/18 11/22/18 11/22/18 Range/Units 17:45 17:45 17:45 WBC (3.8-10.6) k/uL RBC (3.80-5.40) m/uL Hgb (11.4-16.0) gm/dL Hct (34.0-46.0) % MCV (80.0-100.0) fL MCH (25.0-35.0) pg MCHC (31.0-37.0) g/dL RDW (11.5-15.5) % Plt Count (150-450) k/uL Neutrophils % % Lymphocytes % % Monocytes % % Eosinophils % % Basophils % % Neutrophils # (1.3-7.7) k/uL Lymphocytes # (1.0-4.8) k/uL Monocytes # (0-1.0) k/uL Eosinophils # (0-0.7) k/uL Basophils # (0-0.2) k/uL PT (9.0-12.0) sec INR (<1.2) APTT (22.0-30.0) sec Sodium (137-145) mmol/L Potassium (3.5-5.1) mmol/L Chloride (98-107) mmol/L Carbon Dioxide (22-30) mmol/L Anion Gap mmol/L BUN (7-17) mg/dL Creatinine (0.52-1.04) mg/dL Est GFR (CKD-EPI)AfAm (>60 ml/min/1.73 sqM) Est GFR (CKD-EPI)NonAf (>60 ml/min/1.73 sqM) Glucose (74-99) mg/dL Calcium (8.4-10.2) mg/dL Total Bilirubin (0.2-1.3) mg/dL AST (14-36) U/L ALT (9-52) U/L Alkaline Phosphatase (38-126) U/L Troponin I <0.012 (0.000-0.034) ng/mL Total Protein (6.3-8.2) g/dL Albumin (3.5-5.0) g/dL Stool Occult Blood Positive H (Negative) Blood Type B Positive Blood Type Recheck CABO Indicated Antibody Screen NEGATIVE Spec Expiration Date 11/25/2018 - 2345 - EKG Data -: EKG Interpreted by Oh EKG Comments: EKG obtained at 1743 shows normal sinus rhythm with a sinus arrhythmia. Ventricular rate 79, OH interval 136, QRS duration 76, QT 386, QTc 442. No evidence of ST elevation or depression. - Radiology Data Radiology results: report reviewed, image reviewed CT of the pelvis is obtained. Report was reviewed in its entirety. Impression by Dr. Lev Barroso shows nonspecific ST findings which appear inflammatory. Disposition Clinical Impression: Lower GI bleed Disposition: [facility] Condition: Serious Referrals: Jessica Livingston MD [Primary Care Provider] - 1-2 days Decision to Admit Reason: Admit from EC Decision Date: 11/22/18 Decision Time: 19:51
[2018-11-22 17:58] LABS: Basophils % (A) 0 %; Eosinophils # (A) 0.1 k/uL (0-0.7); Eosinophils % (A) 1 %; HGB 9.1 gm/dL (11.4-16.0); Lymphocytes # (A) 1.7 k/uL (1.0-4.8); Lymphocytes % (A) 22 %; MCH 29.2 pg (25.0-35.0); MCHC 33.7 g/dL (31.0-37.0); MCV 86.6 fL (80.0-100.0); Mean Platelet Volume 11.7; Monocytes # (A) 0.5 k/uL (0-1.0); Monocytes % (A) 7 %; Neutrophils % (A) 66 %; Platelet Count 201 k/uL (150-450); RBC 3.11 m/uL (3.80-5.40); RDW 15.6 % (11.5-15.5); WBC 7.6 k/uL (3.8-10.6)
[2018-11-22 18:07] LABS: INR 0.9 (<1.2); Partial Thromboplastin Time 22.5 sec (22.0-30.0); Prothrombin Time 9.9 sec (9.0-12.0)
[2018-11-22 18:16] LABS: Albumin 3.5 g/dL (3.5-5.0); Calcium 9.2 mg/dL (8.4-10.2); Potassium 4.5 mmol/L (3.5-5.1); Total Bilirubin 0.4 mg/dL (0.2-1.3); Total Protein 5.7 g/dL (6.3-8.2)
[2018-11-22] MEDS ORDERED: MORPHINE SULFATE 2 MG/ML SYRINGE IVP STA (18:58)
[2018-11-22] MEDS ORDERED: ONDANSETRON 4 MG/2 ML VIAL IVP STA (18:59)
--- NOTE | 2018-11-22 19:09 | CT ---
EXAMINATION TYPE: CT abdomen pelvis w con DATE OF EXAM: 11/22/2018 COMPARISON: 05/05/2018 HISTORY: Blood in stool CT DLP: 977.4 mGycm Automated exposure control for dose reduction was used. TECHNIQUE: Helical acquisition of images was performed from the lung bases through the pelvis. CONTRAST: Performed without Oral Contrast and with IV Contrast, patient injected with 100 mL of Isovu e 300. FINDINGS: LUNG BASES: No significant abnormality is appreciated. Subcentimeter simple hepatic cyst redemonstrat ed laterally within the right hepatic lobe. LIVER/GB: No significant abnormality is appreciated. PANCREAS: No significant abnormality is seen. SPLEEN: No significant abnormality is seen. ADRENALS: 1 cm low-attenuation right adrenal nodule redemonstrated, likely incidental benign adrenal adenoma. KIDNEYS: No significant abnormality is seen. FREE AIR: No free air is visualized. RETROPERITONEAL ADENOPATHY: None visualized REPRODUCTIVE ORGANS: No significant abnormality is seen URINARY BLADDER: No significant abnormality is seen. PELVIC ADENOPATHY: None visualized. OSSEOUS STRUCTURES: No significant abnormality is seen. BOWEL: There is no bowel obstruction. The cecum, on the prior study, was located within the right lower quadrant anteriorly - but it is now located in the right mid abdomen at the level of the umbilicus. The small bowel is morphologically unremarkable, but the SMA-SMV appears mildly more tortuous in a co unterclockwise manner than the prior study. This is a nonspecific finding at this point in time. The duodenum is unremarkable. Postgastrectomy changes are appreciated, but there are mild perigastric indistinctness changes - a no nspecific finding. OTHER: No acute vascular findings. IMPRESSION: NONSPECIFIC GASTRIC FINDINGS WHICH APPEAR INFLAMMATORY.
[2018-11-22] MEDS ORDERED: NALOXONE 0.4 MG/ML 1 ML VIAL IV PRN (19:42)
[2018-11-22] MEDS ORDERED: FAMOTIDINE 20 MG/2 ML VIAL IV STA (19:46)
[2018-11-22] MEDS: SODIUM CHLORIDE 0.9% 1,000 ML IV SCH (20:26)
[2018-11-23] MEDS ORDERED: MORPHINE SULFATE 4 MG/ML SYRINGE IVP STA (01:12)
[2018-11-23] MEDS ORDERED: ONDANSETRON 4 MG/2 ML VIAL IVP STA (01:12)
[2018-11-23 02:22] LABS: Basophils % (A) 0 %; Eosinophils # (A) 0.2 k/uL (0-0.7); Eosinophils % (A) 3 %; HCT 24.2 % (34.0-46.0); HGB 8.3 gm/dL (11.4-16.0); Lymphocytes # (A) 1.6 k/uL (1.0-4.8); Lymphocytes % (A) 23 %; MCHC 34.2 g/dL (31.0-37.0); MCV 87.8 fL (80.0-100.0); Mean Platelet Volume 10.2; Monocytes # (A) 0.4 k/uL (0-1.0); Monocytes % (A) 6 %; Neutrophils # (A) 4.5 k/uL (1.3-7.7); Neutrophils % (A) 65 %; Platelet Count 181 k/uL (150-450); RBC 2.75 m/uL (3.80-5.40); RDW 14.1 % (11.5-15.5)
[2018-11-23 02:50] LABS: Glucose,Whole Blood 96 mg/dL (75-99)
[2018-11-23] MEDS: MELATONIN 5 MG TABLET PO PRN ×2 (04:14→21:16)
[2018-11-23 06:17] LABS: Basophils % (A) 1 %; Eosinophils # (A) 0.2 k/uL (0-0.7); Eosinophils % (A) 4 %; HCT 23.9 % (34.0-46.0); HGB 7.8 gm/dL (11.4-16.0); Lymphocytes # (A) 1.8 k/uL (1.0-4.8); Lymphocytes % (A) 31 %; MCH 29.2 pg (25.0-35.0); MCHC 32.7 g/dL (31.0-37.0); MCV 89.1 fL (80.0-100.0); Monocytes # (A) 0.3 k/uL (0-1.0); Monocytes % (A) 5 %; Neutrophils # (A) 3.3 k/uL (1.3-7.7); Neutrophils % (A) 57 %; Platelet Count 167 k/uL (150-450); RBC 2.69 m/uL (3.80-5.40); RDW 14.4 % (11.5-15.5); WBC 5.8 k/uL (3.8-10.6)
[2018-11-23 06:26] LABS: Anion Gap 7 mmol/L; Blood Urea Nitrogen 26 mg/dL (7-17); Calcium 8.8 mg/dL (8.4-10.2); Carbon Dioxide 27 mmol/L (22-30); Chloride 103 mmol/L (98-107); Glucose 76 mg/dL (74-99); Magnesium 2.4 mg/dL (1.6-2.3); Phosphorus 4.1 mg/dL (2.5-4.5); Potassium 3.8 mmol/L (3.5-5.1); Sodium 137 mmol/L (137-145)
[2018-11-23] MEDS ORDERED: FAMOTIDINE 20 MG/2 ML VIAL IV SCH (09:00)
--- NOTE | 2018-11-23 09:41 | P.GSCN ---
History of Present Illness Consult date: 11/23/18 Reason for Consult: GI bleed History of present illness: This a 57-year-old female who presents to the emergency room with complaints of rectal bleeding. Patient's had several episodes of bright red blood per rectum. She has a previous history of a Keyona-en-Y gastric bypass. She states she has some epigastric pain. Past Medical History Past Medical History: Hypertension, Osteoarthritis (OA), Pulmonary Embolus (PE) Additional Past Medical History / Comment(s): HERNIA History of Any Multi-Drug Resistant Organisms: None Reported Past Surgical History: Bariatric Surgery, Bladder Surgery, Cholecystectomy, Hernia Repair, Hysterectomy, Orthopedic Surgery Additional Past Surgical History / Comment(s): gastric sleeve with reversal and Keyona EN Y, right shoulder, bilateral hand, skin grafts to legs, COLONOSCOPIES, EGD'S Past Anesthesia/Blood Transfusion Reactions: No Reported Reaction Past Psychological History: Anxiety, Depression Smoking Status: Former smoker Past Alcohol Use History: None Reported Past Drug Use History: None Reported - Past Family History Father Family Medical History: Cancer Mother Additional Family Medical History / Comment(s): Heart attack while on the toilet . Medications and Allergies Home Medications Medication Instructions Recorded Confirmed Type Acetaminophen [Tylenol] 650 mg PO Q4H PRN 04/04/18 11/22/18 History Cetirizine HCl [Zyrtec] 10 mg PO DAILY 04/04/18 11/22/18 History Furosemide [Lasix] 20 mg PO BID 04/04/18 11/22/18 History Lisinopril [Zestril] 2.5 mg PO DAILY 04/04/18 11/22/18 History Multivitamins, Thera [Multivitamin 1 tab PO DAILY 04/04/18 11/22/18 History (formulary)] Melatonin 10 mg PO HS PRN 05/06/18 11/22/18 History Esomeprazole Magnesium [NexIUM] 20 mg PO DAILY 11/22/18 11/22/18 History Ibuprofen [Motrin] 600 mg PO Q8HR PRN 11/22/18 11/22/18 History Venlafaxine HCl [Effexor XR] 150 mg PO DAILY 11/22/18 11/22/18 History lamoTRIgine [LaMICtal] 150 mg PO BID 11/22/18 11/22/18 History Allergies Allergy/AdvReac Type Severity Reaction Status Date / Time No Known Allergies Allergy Verified 11/22/18 16:57 Surgical - Exam Vital Signs Temp Pulse Resp BP Pulse Ox 97.8 F 89 20 109/72 98 11/22/18 16:46 11/22/18 16:46 11/22/18 16:46 11/22/18 16:46 11/22/18 16:46 - General well developed, well nourished, no distress - Eyes PERRL - ENT normal pinna - Neck no masses - Respiratory normal expansion - Cardiovascular Rhythm: regular - Abdomen Mild epigastric tenderness Abdomen: soft Results - Labs 11/23/18 04:24 11/23/18 04:24 Abnormal Lab Results - Last 24 Hours (Table) 11/22/18 11/22/18 11/22/18 Range/Units 17:45 17:45 17:45 RBC 3.11 L (3.80-5.40) m/uL Hgb 9.1 L (11.4-16.0) gm/dL Hct 27.0 L (34.0-46.0) % RDW 15.6 H (11.5-15.5) % BUN 31 H (7-17) mg/dL Magnesium (1.6-2.3) mg/dL Total Protein 5.7 L (6.3-8.2) g/dL Stool Occult Blood Positive H (Negative) Crossmatch 11/22/18 11/23/18 11/23/18 Range/Units 17:45 01:30 04:24 RBC 2.75 L (3.80-5.40) m/uL Hgb 8.3 L (11.4-16.0) gm/dL Hct 24.2 L (34.0-46.0) % RDW (11.5-15.5) % BUN 26 H (7-17) mg/dL Magnesium 2.4 H (1.6-2.3) mg/dL Total Protein (6.3-8.2) g/dL Stool Occult Blood (Negative) Crossmatch See Detail 11/23/18 Range/Units 04:24 RBC 2.69 L (3.80-5.40) m/uL Hgb 7.8 L (11.4-16.0) gm/dL Hct 23.9 L (34.0-46.0) % RDW (11.5-15.5) % BUN (7-17) mg/dL Magnesium (1.6-2.3) mg/dL Total Protein (6.3-8.2) g/dL Stool Occult Blood (Negative) Crossmatch Diabetes panel 11/22/18 11/23/18 Range/Units 17:45 04:24 Sodium 137 137 (137-145) mmol/L Potassium 4.5 3.8 (3.5-5.1) mmol/L Chloride 102 103 (98-107) mmol/L Carbon Dioxide 28 27 (22-30) mmol/L BUN 31 H 26 H (7-17) mg/dL Creatinine 0.93 0.64 (0.52-1.04) mg/dL Glucose 79 76 (74-99) mg/dL Calcium 9.2 8.8 (8.4-10.2) mg/dL AST 30 (14-36) U/L ALT 22 (9-52) U/L Alkaline Phosphatase 57 (38-126) U/L Total Protein 5.7 L (6.3-8.2) g/dL Albumin 3.5 (3.5-5.0) g/dL Calcium panel 11/22/18 11/23/18 Range/Units 17:45 04:24 Calcium 9.2 8.8 (8.4-10.2) mg/dL Phosphorus 4.1 (2.5-4.5) mg/dL Albumin 3.5 (3.5-5.0) g/dL Pituitary panel 11/22/18 11/23/18 Range/Units 17:45 04:24 Sodium 137 137 (137-145) mmol/L Potassium 4.5 3.8 (3.5-5.1) mmol/L Chloride 102 103 (98-107) mmol/L Carbon Dioxide 28 27 (22-30) mmol/L BUN 31 H 26 H (7-17) mg/dL Creatinine 0.93 0.64 (0.52-1.04) mg/dL Glucose 79 76 (74-99) mg/dL Calcium 9.2 8.8 (8.4-10.2) mg/dL Adrenal panel 11/22/18 11/23/18 Range/Units 17:45 04:24 Sodium 137 137 (137-145) mmol/L Potassium 4.5 3.8 (3.5-5.1) mmol/L Chloride 102 103 (98-107) mmol/L Carbon Dioxide 28 27 (22-30) mmol/L BUN 31 H 26 H (7-17) mg/dL Creatinine 0.93 0.64 (0.52-1.04) mg/dL Glucose 79 76 (74-99) mg/dL Calcium 9.2 8.8 (8.4-10.2) mg/dL Total Bilirubin 0.4 (0.2-1.3) mg/dL AST 30 (14-36) U/L ALT 22 (9-52) U/L Alkaline Phosphatase 57 (38-126) U/L Total Protein 5.7 L (6.3-8.2) g/dL Albumin 3.5 (3.5-5.0) g/dL Assessment and Plan Assessment: GI bleed. Consult was made to the GI service. Patient will most likely undergo upper and lower endoscopy. She will need to be evaluated for possible gastrojejunostomy ulcer. We will follow with you.
[2018-11-23] MEDS: traMADol 50 MG TAB PO PRN ×2 (09:48→16:23)
[2018-11-23] MEDS: lamoTRIgine 100 MG TAB PO SCH ×2 (09:48→16:23)
[2018-11-23] MEDS: VENLAFAXINE HCL ER 150 MG CAP PO SCH (10:11)
--- NOTE | 2018-11-23 10:27 | P.CNPUL ---
History of Present Illness Consult date: 11/23/18 Requesting physician: Angel Galeano Reason for consult: other (Critical care management) Chief complaint: Bright red bowel movements with clots History of present illness: This is a very pleasant 57-year-old female patient who follows with Jessica Livingston as her primary care provider. She has a history of anxiety/depression, hypertension, osteoarthritis, previous pulmonary embolism, previous gastric sleeve with reversal and Keyona-en-Y procedures. She is a former smoker. She does take Motrin 600 mg every 8 hours for pain as needed. She presented here to the emergency room yesterday with complaints of abdominal discomfort and bright red bowel movements with clots. Initial hemoglobin 9.1. She is seen today in consultation in the intensive care unit. She is awake and alert in no acute distress. She did have another bowel movement with clots this morning. Her hemoglobin is 7.8. The plan is to transfuse one unit. Surgical services and GI services are both consulted. No pulmonary complaints. No cough congestion. No shortness of breath. She is maintaining good O2 saturations in the 90s on room air. She has 0.9 normal saline at 50 MLS per hour. Computed tomography scan of the abdomen revealed nonspecific gastric findings which appear inflammatory. Review of Systems REVIEW OF SYSTEMS: CONSTITUTIONAL: Denies any recent significant weight loss or weight gain. EYES: Denies change in vision. EARS, NOSE, MOUTH, THROAT: Denies headaches, denies sore throat. CARDIOVASCULAR: Denies chest pain, palpitations or syncopal episodes. RESPIRATORY: Denies shortness of breath, cough, congestion or hemoptysis. GASTROINTESTINAL: Positive for abdominal pain and bright red bowel movements with clots. GENITOURINARY: Denies hematuria, denies infections. MUSKULOSKELETAL: Denies pain, denies swelling. INTEGUMENTARY: Denies rash, denies eczema. NEUROLOGICAL: Denies recent memory loss, no recent seizure activity. PSYCHIATRIC: Denies anxiety, denies depression. HEMATOLOGIC/LYMPHATIC: Denies anemia, denies enlarged lymph nodes. Past Medical History Past Medical History: Hypertension, Osteoarthritis (OA), Pulmonary Embolus (PE) Additional Past Medical History / Comment(s): HERNIA History of Any Multi-Drug Resistant Organisms: None Reported Past Surgical History: Bariatric Surgery, Bladder Surgery, Cholecystectomy, Hernia Repair, Hysterectomy, Orthopedic Surgery Additional Past Surgical History / Comment(s): gastric sleeve with reversal and Keyona EN Y, right shoulder, bilateral hand, skin grafts to legs, COLONOSCOPIES, EGD'S Past Anesthesia/Blood Transfusion Reactions: No Reported Reaction Past Psychological History: Anxiety, Depression Smoking Status: Former smoker Past Alcohol Use History: None Reported Past Drug Use History: None Reported - Past Family History Father Family Medical History: Cancer Mother Additional Family Medical History / Comment(s): Heart attack while on the to ilet. Medications and Allergies Home Medications Medication Instructions Recorded Confirmed Type Acetaminophen [Tylenol] 650 mg PO Q4H PRN 04/04/18 11/22/18 History Cetirizine HCl [Zyrtec] 10 mg PO DAILY 04/04/18 11/22/18 History Furosemide [Lasix] 20 mg PO BID 04/04/18 11/22/18 History Lisinopril [Zestril] 2.5 mg PO DAILY 04/04/18 11/22/18 History Multivitamins, Thera [Multivitamin 1 tab PO DAILY 04/04/18 11/22/18 History (formulary)] Melatonin 10 mg PO HS PRN 05/06/18 11/22/18 History Esomeprazole Magnesium [NexIUM] 20 mg PO DAILY 11/22/18 11/22/18 History Ibuprofen [Motrin] 600 mg PO Q8HR PRN 11/22/18 11/22/18 History Venlafaxine HCl [Effexor XR] 150 mg PO DAILY 11/22/18 11/22/18 History lamoTRIgine [LaMICtal] 150 mg PO BID 11/22/18 11/22/18 History Allergies Allergy/AdvReac Type Severity Reaction Status Date / Time No Known Allergies Allergy Verified 11/22/18 16:57 Physical Exam Vitals: Vital Signs Temp Pulse Pulse Resp BP BP Pulse Ox 11/23/18 09:00 68 16 99/68 11/23/18 08:00 97.7 F 72 14 97/64 99 11/23/18 06:00 73 26 H 97/56 92 L 11/23/18 04:55 82 23 106/69 94 L 11/23/18 04:00 74 12 106/69 93 L 11/23/18 03:00 70 15 108/74 96 11/23/18 02:00 96 11/23/18 01:57 74 16 100/66 100 11/22/18 23:41 89 16 102/72 100 11/22/18 22:00 89 16 105/74 100 11/22/18 20:34 89 16 117/76 100 11/22/18 19:07 78 18 113/71 100 11/22/18 16:46 97.8 F 89 20 109/72 98 Intake and Output 11/22/18 11/23/18 11/23/18 22:59 06:59 14:59 Intake Total 200 450 Output Total 1 Balance 200 449 Intake: IV 200 250 Sodium Chloride 0.9% 1, 200 250 000 ml @ 100 mls/hr IV . Q10H LIN Rx#:[id number] Oral 200 Output: Urine/Stool Mix 1 Other: Voiding Method Toilet # Voids 0 2 Weight 89.358 kg GENERAL EXAM: Alert, active, comfortable in no apparent distress. On room air. HEAD: Normocephalic. EYES: Normal reaction of pupils, equal size. NOSE: Clear with pink turbinates. THROAT: No erythema or exudates. NECK: No masses, no JVD. CHEST: No chest wall deformity. LUNGS: Equal air entry with no crackles, wheeze, rhonchi or dullness. CVS: S1 and S2 normal with no audible murmur, regular rhythm. ABDOMEN: Tender to palpation, normal bowel sounds, no guarding or rigidity. SPINE: No scoliosis or deformity SKIN: No rashes CENTRAL NERVOUS SYSTEM: No focal deficits, tone is normal in all 4 extremities. EXTREMITIES: There is no peripheral edema. No clubbing, no cyanosis. Peripheral pulses are intact. Results - Laboratory Findings CBC and BMP: 11/23/18 04:24 11/23/18 04:24 PT/INR, D-dimer PT 9.9 sec (9.0-12.0) 11/22/18 17:45 INR 0.9 (<1.2) 11/22/18 17:45 Abnormal lab findings: Abnormal Labs 11/22/18 11/22/18 11/22/18 17:45 17:45 17:45 RBC 3.11 L Hgb 9.1 L Hct 27.0 L RDW 15.6 H BUN 31 H Magnesium Total Protein 5.7 L Stool Occult Blood Positive H Crossmatch 11/22/18 11/23/18 11/23/18 17:45 01:30 04:24 RBC 2.75 L Hgb 8.3 L Hct 24.2 L RDW BUN 26 H Magnesium 2.4 H Total Protein Stool Occult Blood Crossmatch See Detail 11/23/18 04:24 RBC 2.69 L Hgb 7.8 L Hct 23.9 L RDW BUN Magnesium Total Protein Stool Occult Blood Crossmatch Assessment and Plan Assessment: Impression: #1 Acute gastrointestinal bleeding suspected lower GI in origin with bright red blood and clots. #2 Anemia secondary to above. Current hemoglobin 7.8. One unit of packed red blood cells are pending. #3 Osteoarthritis utilizing Motrin in the outpatient setting. #4 History of gastric sleeve with reversal and Keyona-en-Y procedure. #5 History of anxiety/depression. #6 Hypertension. Plan: The patient was seen and evaluated by Dr. Dennis. She is currently stable from the critical care standpoint. She is to receive 1 unit of packed red blood cells. Continue to monitor hemoglobin. Currently on Pepcid. GI services and surgical services are both on the case. We'll continue to follow and make further recommendations based on her clinical status. I, the cosigning physician, performed a history & physical examination of the patient. Lungs sounds are clear. Maintaining good O2 saturations in the 90s on room air. I discussed the assessment and plan of care with my nurse practitioner, Analy Acosta. I attest to the above note as dictated by her. Time with Patient: Greater than 30
[2018-11-23] MEDS ORDERED: PANTOPRAZOLE 40 MG TABLET PO SCH (10:45)
[2018-11-23] MEDS: MORPHINE SULFATE 4 MG/ML SYRINGE IVP PRN ×2 (10:49→20:30)
[2018-11-23 11:06] VITALS: BMI 30.8
[2018-11-23 13:37] LABS: Anisocytosis Slight; Basophils % (A) 1 %; Eosinophils # (A) 0.2 k/uL (0-0.7); Eosinophils % (A) 4 %; HCT 23.1 % (34.0-46.0); HGB 7.7 gm/dL (11.4-16.0); Lymphocytes # (A) 1.7 k/uL (1.0-4.8); Lymphocytes % (A) 36 %; MCH 29.1 pg (25.0-35.0); MCHC 33.3 g/dL (31.0-37.0); MCV 87.3 fL (80.0-100.0); Mean Platelet Volume 12.1; Monocytes # (A) 0.2 k/uL (0-1.0); Monocytes % (A) 5 %; Neutrophils # (A) 2.4 k/uL (1.3-7.7); Neutrophils % (A) 51 %; Platelet Count 160 k/uL (150-450); RBC 2.64 m/uL (3.80-5.40); RDW 16.2 % (11.5-15.5); WBC 4.6 k/uL (3.8-10.6)
[2018-11-23 18:37] LABS: Anisocytosis Slight; HCT 24.7 % (34.0-46.0); HGB 8.1 gm/dL (11.4-16.0); MCH 28.9 pg (25.0-35.0); MCHC 32.7 g/dL (31.0-37.0); MCV 88.6 fL (80.0-100.0); Mean Platelet Volume 12.4; Platelet Count 163 k/uL (150-450); RBC 2.79 m/uL (3.80-5.40); RDW 16.5 % (11.5-15.5); WBC 5.6 k/uL (3.8-10.6)
[2018-11-23] MEDS: SODIUM CHLORIDE 0.9% 1,000 ML IV SCH (19:21)
[2018-11-23] MEDS: PANTOPRAZOLE 40 MG/10 ML VIAL IVP SCH (21:17)
--- NOTE | 2018-11-23 21:19 | P.HPIM ---
History of Present Illness H&P Date: 11/23/18 Chief Complaint: Blood in the stools Patient is a 57-year-old female with a known history of hypertension, history of pulmonary embolism, osteoarthritis and previous history of gastric sleeve with reversal, anxiety/depressed and previous history of smoking came to ER with the complaints of abdominal discomfort and maroon colored stools with clots. His abdominal discomfort is mainly in the epigastric region. Patient has been having dark-red colored stools since yesterday. Patient came to the hospital with hemoglobin level IX.1. Patient has been taking Motrin 3 times daily for the past 2 weeks due to tooth pain. Hemoglobin this morning is 7.8. No complains of dizziness or lightheadedness. No complaints of chest pain or shortness of breath. No cough or sputum pr oduction. Denied any other recent illnesses. Patient is not on any blood thinners currently at home. CT of the abdominal showed nonspecific gastric findings which appear inflammatory. EKG normal sinus rhythm Review of Systems Constitutional: Patient denies any fever or chills . No generalized weakness or weight loss. Abdomen: Patient denied nausea vomiting and diarrhea and patient does have abdominal pain and maroon-colored stools.. Cardiovascular: Patient denies any chest pain or short of breath no palpitations. Respiratory: patient denied any cough is from production. No shortness of breath Neurologic: Patient denied any numbness or tingling headache. Musculoskeletal: Patient denies any complaints of joint swelling or deformity. Skin: Negative Psychiatric: Negative Endocrine: No heat or cold intolerance. No recent weight gain. Genitourinary: No dysuria or hematuria. All other 14 point ROS negative except the above Past Medical History Past Medical History: Hypertension, Osteoarthritis (OA), Pulmonary Embolus (PE) Additional Past Medical History / Comment(s): HERNIA History of Any Multi-Drug Resistant Organisms: None Reported Past Surgical History: Bariatric Surgery, Bladder Surgery, Cholecystectomy, Hernia Repair, Hysterectomy, Orthopedic Surgery Additional Past Surgical History / Comment(s): gastric sleeve with reversal and Keyona EN Y, right shoulder, bilateral hand, skin grafts to legs, COLONOSCOPIES, EGD'S Past Anesthesia/Blood Transfusion Reactions: No Reported Reaction Past Psychological History: Anxiety, Depression Smoking Status: Former smoker Past Alcohol Use History: None Reported Past Drug Use History: None Reported - Past Family History Father Family Medical History: Cancer Mother Additional Family Medical History / Comment(s): Heart attack while on the toilet. Medications and Allergies Home Medications Medication Instructions Recorded Confirmed Type Acetaminophen [Tylenol] 650 mg PO Q4H PRN 04/04/18 11/22/18 History Cetirizine HCl [Zyrtec] 10 mg PO DAILY 04/04/18 11/22/18 History Furosemide [Lasix] 20 mg PO BID 04/04/18 11/22/18 History Lisinopril [Zestril] 2.5 mg PO DAILY 04/04/18 11/22/18 History Multivitamins, Thera [Multivitamin 1 tab PO DAILY 04/04/18 11/22/18 History (formulary)] Melatonin 10 mg PO HS PRN 05/06/18 11/22/18 History Esomeprazole Magnesium [NexIUM] 20 mg PO DAILY 11/22/18 11/22/18 History Ibuprofen [Motrin] 600 mg PO Q8HR PRN 11/22/18 11/22/18 History Venlafaxine HCl [Effexor XR] 150 mg PO DAILY 11/22/18 11/22/18 History lamoTRIgine [LaMICtal] 150 mg PO BID 11/22/18 11/22/18 History Allergies Allergy/AdvReac Type Severity Reaction Status Date / Time No Known Allergies Allergy Verified 11/22/18 16:57 Physical Exam Vitals: Vital Signs Temp Pulse Pulse Resp BP BP Pulse Ox 11/23/18 10:00 61 16 101/69 98 11/23/18 09:00 68 16 99/68 11/23/18 08:00 97.7 F 72 14 97/64 99 11/23/18 06:00 73 26 H 97/56 92 L 11/23/18 04:55 82 23 106/69 94 L 11/23/18 04:00 74 12 106/69 93 L 11/23/18 03:00 70 15 108/74 96 11/23/18 02:00 96 11/23/18 01:57 74 16 100/66 100 11/22/18 23:41 89 16 102/72 100 11/22/18 22:00 89 16 105/74 100 11/22/18 20:34 89 16 117/76 100 11/22/18 19:07 78 18 113/71 100 11/22/18 16:46 97.8 F 89 20 109/72 98 Intake and Output 11/22/18 11/23/18 11/23/18 22:59 06:59 14:59 Intake Total 200 550 Output Total 1 Balance 200 549 Intake: IV 200 350 Sodium Chloride 0.9% 1, 200 350 000 ml @ 100 mls/hr IV . Q10H LIN Rx#:[id number] Oral 200 Output: Urine/Stool Mix 1 Other: Voiding Method Toilet Toilet # Voids 0 2 Weight 89.358 kg PHYSICAL EXAMINATION: Patient is lying in the bed comfortably, no acute distress, awake alert and oriented.. HEENT: Normocephalic. Neck is supple. Pupils reactive. Nostrils clear. Oral cavity is moist. Ears reveal no drainage. Neck reveals no JVD, carotid bruits, or thyromegaly. CHEST EXAMINATION: Trachea is central. Symmetrical expansion. Lung taylor clear to auscultation and percussion. CARDIAC: Normal S1, S2 with no gallops. No murmurs ABDOMEN: Soft. Bowel sounds normal. No organomegaly. No abdominal bruits. Extremities: reveal no edema. No clubbing or cyanosis Neurologically awake, alert, oriented x3 with well-coordinated movements. No f ocal deficits noted Skin: No rash or skin lesions. Psychiatric: Coperative. Nonsuicidal Musculoskeletal: No joint swelling or deformity. Normal range of motion. Results CBC & Chem 7: 11/23/18 18:23 11/23/18 04:24 Labs: Abnormal Lab Results - Last 24 Hours (Table) 11/22/18 11/22/18 11/22/18 Range/Units 17:45 17:45 17:45 RBC 3.11 L (3.80-5.40) m/uL Hgb 9.1 L (11.4-16.0) gm/dL Hct 27.0 L (34.0-46.0) % RDW 15.6 H (11.5-15.5) % BUN 31 H (7-17) mg/dL Magnesium (1.6-2.3) mg/dL Total Protein 5.7 L (6.3-8.2) g/dL Stool Occult Blood Positive H (Negative) Crossmatch 11/22/18 11/23/18 11/23/18 Range/Units 17:45 01:30 04:24 RBC 2.75 L (3.80-5.40) m/uL Hgb 8.3 L (11.4-16.0) gm/dL Hct 24.2 L (34.0-46.0) % RDW (11.5-15.5) % BUN 26 H (7-17) mg/dL Magnesium 2.4 H (1.6-2.3) mg/dL Total Protein (6.3-8.2) g/dL Stool Occult Blood (Negative) Crossmatch See Detail 11/23/18 Range/Units 04:24 RBC 2.69 L (3.80-5.40) m/uL Hgb 7.8 L (11.4-16.0) gm/dL Hct 23.9 L (34.0-46.0) % RDW (11.5-15.5) % BUN (7-17) mg/dL Magnesium (1.6-2.3) mg/dL Total Protein (6.3-8.2) g/dL Stool Occult Blood (Negative) Crossmatch Thrombosis Risk Factor Assmnt - DVT/VTE Prophylaxis DVT/VTE Prophylaxis: Mechanical Prophylaxis ordered Assessment and Plan Assessment: Acute GI bleed possible upper GI Acute blood loss anemia secondary to GI bleed Hypertension Osteoarthritis Previous history of pulmonary embolism Anxiety/depression History of gastric sleeve with reversal and Keyona EN Y DVT prophylaxis SCDs Plan: Patient will be continued on IV hydration. Monitor H&H. Continue With the supportive management. Gastroenterology will be consulted. Protonix IV daily. Will follow closely and further recommendations based on the clinical course. Time with Patient: Greater than 30
[2018-11-24] MEDS: MORPHINE SULFATE 4 MG/ML SYRINGE IVP PRN ×5 (00:45→21:51)
[2018-11-24 01:01] LABS: Anisocytosis Slight; HCT 22.7 % (34.0-46.0); HGB 7.6 gm/dL (11.4-16.0); MCH 29.7 pg (25.0-35.0); MCHC 33.5 g/dL (31.0-37.0); MCV 88.5 fL (80.0-100.0); Mean Platelet Volume 12.4; Platelet Count 143 k/uL (150-450); RBC 2.56 m/uL (3.80-5.40); RDW 16.3 % (11.5-15.5); WBC 4.3 k/uL (3.8-10.6)
[2018-11-24] MEDS: SODIUM CHLORIDE 0.9% 1,000 ML IV SCH ×2 (05:03→13:24)
[2018-11-24 05:59] LABS: HCT 21.9 % (34.0-46.0); HGB 7.4 gm/dL (11.4-16.0); MCH 30.7 pg (25.0-35.0); MCHC 33.9 g/dL (31.0-37.0); MCV 90.5 fL (80.0-100.0); Mean Platelet Volume 10.7; Platelet Count 137 k/uL (150-450); RBC 2.42 m/uL (3.80-5.40); RDW 14.5 % (11.5-15.5); WBC 3.9 k/uL (3.8-10.6)
[2018-11-24 06:12] LABS: Anion Gap 4 mmol/L; Blood Urea Nitrogen 13 mg/dL (7-17); Calcium 8.5 mg/dL (8.4-10.2); Carbon Dioxide 27 mmol/L (22-30); Chloride 110 mmol/L (98-107); Glucose 84 mg/dL (74-99); Magnesium 2.1 mg/dL (1.6-2.3); Phosphorus 3.8 mg/dL (2.5-4.5); Sodium 141 mmol/L (137-145)
[2018-11-24] MEDS: lamoTRIgine 100 MG TAB PO SCH ×2 (08:04→21:55)
[2018-11-24] MEDS: VENLAFAXINE HCL ER 150 MG CAP PO SCH (08:04)
[2018-11-24] MEDS: PANTOPRAZOLE 40 MG/10 ML VIAL IVP SCH ×2 (08:05→21:51)
--- NOTE | 2018-11-24 10:21 | PN ---
PROGRESS NOTE This is a 57-year-old female that we saw yesterday in consultation. She came with acute gastrointestinal bleed, thought to be lower GI in origin. She was having bright red bleeding and clots from the rectal area. She came in with anemia. The patient has not received any blood thus far. Her hemoglobin this morning is 7.4. The patient does have a history of osteoarthritis, history of gastric sleeve with reversal and Crista-en-Y procedure, history of anxiety and depression and hypertension. Today she is doing relatively well. She is not receiving any supplemental oxygen. She has got a saline IV at 100 mL an hour. Blood pressure has been stable. She has had no further bleeding. She is scheduled for an EGD at 11 o'clock morning. Again, the patient has not received any PRBCs. The patient denies any symptoms other than some diffuse abdominal discomfort for which she is receiving pain medications. Current vital signs are reviewed. Temperature 97.9, heart rate 69, respiratory rate 13. Blood pressure 102/64, mean 76, room air saturation 95%. Appears in no acute distress. HEENT examination is grossly unremarkable. Mucous membranes are moist. No oral lesions. Neck is supple. Full range of motion. No adenopathy or thyromegaly. Neck veins are flat. Cardiovascular examination reveals regular rhythm and rate. Heart rate 75. S1, S2 normal. No murmur. Lungs are clear. Breath sounds equal. No wheezes, rhonchi, or crackles. Abdomen is soft. Mildly tender. No masses. Extremities are intact. No cyanosis, clubbing, or edema. Skin without rash. Neurologic examination is brief but nonfocal. LABS: Reviewed. White count 3.9, hemoglobin 7.4, hematocrit 21.9, platelet count 137,000. Sodium 141, potassium 4, chloride 110, CO2 27, BUN and creatinine were 13 and 0.5. Microbiologic studies are negative. Medications are reviewed. ASSESSMENT: 1. Gastrointestinal bleed, acute, source unclear with anticipated EGD today. 2. Acute anemia secondary to gastrointestinal bleed. 3. Osteoarthritis. 4. History of gastric sleeve with subsequent reversal and Crista-en-Y procedure. 5. History of anxiety. 6. History of depression. 7. History of hypertension. PLAN: The patient is relatively stable. She is scheduled to have an EGD today. She might be able to move out to the floor depending on the findings. Hemodynamically, she is stable. Respiratory status is stable. She is having some mild abdominal discomfort. She is not requiring any supplemental oxygen. She has not received any blood since she has been here in the hospital. JUSTIN / RAHULN: [id number] /
--- NOTE | 2018-11-24 10:46 | P.PN ---
Progress Note - Text Progress Note Date: 11/24/18 The patient maintained stable. Her hemoglobin is 7.6. She had another bloody stool last night. She is scheduled for endoscopy with Dr. Pollock this morning. On exam her vital signs are stable. Abdomen soft. GI bleed. Patient will undergo endoscopy today. We will follow with you.
[2018-11-24] MEDS ORDERED: PROPOFOL 10 MG/ML 20 ML VIAL IV ONE (11:36)
[2018-11-24] MEDS ORDERED: IV FLUID CONTINUATION 1,000 ML IV ONE (11:47)
--- NOTE | 2018-11-24 12:11 | P.CONS ---
History of Present Illness - Reason for Consult Consult date: 11/23/18 GI bleeding - History of Present Illness The patient is a 57-year-old female who presented to the emergency department for evaluation of rectal bleeding. Patient states that she has had 2 bowel movements containing bright red blood with clots presence of clots. Patient states she is having mid abdominal pain. She denies any radiation of the pain to her back. States that she was vomiting and having diarrhea couple of days ago. She denies any dizziness or weakness however she did check her blood pressure at home and did have low blood pressures in the 90s systolic. She denies any history of GI bleed. states she did take anti-inflammatories for a few days for a broken tooth. She did take a 3 day course of amoxicillin for the same. Last colonoscopy was last year, she did have 1 polyp which was biopsied and came back negative. She denies history of hemorrhoids. Denies any use of anti-coagulant or antiplatelet medications. Patient denies any recent rash, fever, chills, shortness breath, chest pain, back pain, numbness, tingling, dizziness, weakness, hematuria, dysuria, urinary urgency, urinary frequency, headache, visual changes, or any other complaints. Review of Systems CONSTITUTIONAL: Denies any fevers, chills, weight change or fatigue. CARDIOVASCULAR: Denies any chest pain, palpitations high or low blood pressures RESPIRATORY: Denies any shortness of breath, hemoptysis or cough. GENITOURINARY: No dysuria or hematuria. MUSCULOSKELETAL: No weakness reported. SKIN: Denies any new rashes or lesions, jaundice or pallor. PSYCHIATRIC: Denies any depression or anxiety. NEUROLOGY: Denies headache, denies any new focal deficits. EARS/NOSE/THROAT: No recent hearing change, congestion, nasal discharge or sore throat. EYES: No pain in eyes, discharge or change in vision. GASTROINTESTINAL: As per HPI. Past Medical History Past Medical History: GERD/Reflux, Hypertension, Osteoarthritis (OA), Pulmonary Embolus (PE) Additional Past Medical History / Comment(s): HERNIA, Depression, Anxiety History of Any Multi-Drug Resistant Organisms: None Reported Past Surgical History: Bariatric Surgery, Bladder Surgery, Cholecystectomy, Hernia Repair, Hysterectomy, Orthopedic Surgery Additional Past Surgical History / Comment(s): gastric sleeve with reversal and Keyona EN Y, right shoulder, bilateral hand, skin grafts to legs, COLONOSCOPIES, EGD'S Past Anesthesia/Blood Transfusion Reactions: No Reported Reaction Past Psychological History: Anxiety, Depression Smoking Status: Never smoker Past Alcohol Use History: None Reported Past Drug Use History: None Reported - Past Family History Father Family Medical History: Cancer Additional Family Medical History / Comment(s): Colon Cancer Mother Additional Family Medical History / Comment(s): Heart attack while on the toilet. Medications and Allergies Home Medications Medication Instructions Recorded Confirmed Type Acetaminophen [Tylenol] 650 mg PO Q4H PRN 04/04/18 11/22/18 History Cetirizine HCl [Zyrtec] 10 mg PO DAILY 04/04/18 11/22/18 History Furosemide [Lasix] 20 mg PO BID 04/04/18 11/22/18 History Lisinopril [Zestril] 2.5 mg PO DAILY 04/04/18 11/22/18 History Multivitamins, Thera [Multivitamin 1 tab PO DAILY 04/04/18 11/22/18 History (formulary)] Melatonin 10 mg PO HS PRN 05/06/18 11/22/18 History Esomeprazole Magnesium [NexIUM] 20 mg PO DAILY 11/22/18 11/22/18 History Ibuprofen [Motrin] 600 mg PO Q8HR PRN 11/22/18 11/22/18 History Venlafaxine HCl [Effexor XR] 150 mg PO DAILY 11/22/18 11/22/18 History lamoTRIgine [LaMICtal] 150 mg PO BID 11/22/18 11/22/18 History Allergies Allergy/AdvReac Type Severity Reaction Status Date / Time No Known Allergies Allergy Verified 11/22/18 16:57 Physical Exam Vitals: Vital Signs Temp Pulse Pulse Resp BP BP Pulse Ox 11/23/18 11:00 72 12 98/65 11/23/18 10:00 61 16 101/69 98 11/23/18 09:00 68 16 99/68 11/23/18 08:00 97.7 F 72 14 97/64 99 11/23/18 06:00 73 26 H 97/56 92 L 11/23/18 04:55 82 23 106/69 94 L 11/23/18 04:00 74 12 106/69 93 L 11/23/18 03:00 70 15 108/74 96 11/23/18 02:00 96 11/23/18 01:57 74 16 100/66 100 11/22/18 23:41 89 16 102/72 100 11/22/18 22:00 89 16 105/74 100 11/22/18 20:34 89 16 117/76 100 11/22/18 19:07 78 18 113/71 100 11/22/18 16:46 97.8 F 89 20 109/72 98 Intake and Output 11/22/18 11/23/18 11/23/18 22:59 06:59 14:59 Intake Total 200 650 Output Total 1 Balance 200 649 Intake: IV 200 450 Sodium Chloride 0.9% 1, 200 450 000 ml @ 100 mls/hr IV . Q10H LIN Rx#:[id number] Oral 200 Output: Urine/Stool Mix 1 Other: Voiding Method Toilet Toilet # Voids 0 2 Weight 89.358 kg On physical examination, patient appears very pleasant, stated age in no apparent distress. HEAD: Normocephalic, atraumatic. EYES: No scleral icterus. No conjunctival injection. MOUTH: No lesions, tongue midline. NECK: Trachea midline, no gross abnormalities. CHEST: Clear to auscultation with no wheezing or rhonchi appreciated. HEART: Regular, no abnormal solids, murmurs or friction rubs. ABDOMEN: Soft. Bowel sounds are positive. No organomegaly. No guarding or rigidity. EXTREMITIES: No pedal edema. SKIN: No rashes, no jaundice. NEUROLOGIC: Alert and oriented. No focal deficits. Results CBC & Chem 7: 11/24/18 05:39 11/24/18 05:39 Labs: Abnormal Lab Results - Last 24 Hours (Table) 11/22/18 11/22/18 11/22/18 Range/Units 17:45 17:45 17:45 RBC 3.11 L (3.80-5.40) m/uL Hgb 9.1 L (11.4-16.0) gm/dL Hct 27.0 L (34.0-46.0) % RDW 15.6 H (11.5-15.5) % BUN 31 H (7-17) mg/dL Magnesium (1.6-2.3) mg/dL Total Protein 5.7 L (6.3-8.2) g/dL Stool Occult Blood Positive H (Negative) Crossmatch 11/22/18 11/23/18 11/23/18 Range/Units 17:45 01:30 04:24 RBC 2.75 L (3.80-5.40) m/uL Hgb 8.3 L (11.4-16.0) gm/dL Hct 24.2 L (34.0-46.0) % RDW (11.5-15.5) % BUN 26 H (7-17) mg/dL Magnesium 2.4 H (1.6-2.3) mg/dL Total Protein (6.3-8.2) g/dL Stool Occult Blood (Negative) Crossmatch See Detail 11/23/18 Range/Units 04:24 RBC 2.69 L (3.80-5.40) m/uL Hgb 7.8 L (11.4-16.0) gm/dL Hct 23.9 L (34.0-46.0) % RDW (11.5-15.5) % BUN (7-17) mg/dL Magnesium (1.6-2.3) mg/dL Total Protein (6.3-8.2) g/dL Stool Occult Blood (Negative) Crossmatch Assessment and Plan Assessment: Gastrointestinal bleeding could be related to marginal ulcer. Ischemic or self- limited colitis in light of her presentation is something to be considered as well. Plan: Discussed at length with the patient and her next steps. We will start with an upper endoscopy tomorrow to assess for an upper GI source of bleeding and it that proved to be not revealing, we can prepare for colonoscopy after that. I will discuss with you and follow with you with interest.
--- NOTE | 2018-11-24 12:21 | P.PCN ---
Date of Procedure: 11/24/18 Procedure(s) Performed: Procedure: Esophagogastroduodenoscopy. Preoperative diagnosis: GI bleeding and anemia. Preoperative diagnosis: 1. Sliding hiatal hernia with no obvious esophagitis or complicated reflux disease. 2. Marginal ulcer covered with white exudate with no active bleeding at the time of this exam. Preparation and sedation: Was provided by anesthesia. Brief clinical history:The patient is a 57-year-old female who presented to the emergency department for evaluation of rectal bleeding. Patient states that she has had 2 bowel movements containing bright red blood with clots. Patient states she is having mid abdominal pain. She denies any radiation of the pain to her back. States that she was vomiting and having diarrhea couple of days prior. She denies any dizziness or weakness however she did check her blood pressure at home and did have low blood pressures in the 90s systolic. She denies any history of GI bleed. states she did take anti-inflammatories for a few days for a broken tooth. She did take a 3 day course of amoxicillin for the same. Last colonoscopy was last year, she did have 1 polyp which was biopsied and came back negative. She denies history of hemorrhoids. Denies any use of anti-coagulant or antiplatelet medications. Patient denies any recent rash, fever, chills, shortness breath, chest pain, back pain, numbness, tingling, dizziness, weakness, hematuria, dysuria, urinary urgency, urinary frequency, headache, visual changes, or any other complaints. The patient had prior gastric bypass surgery and laparoscopies for lysis of adhesions and small bowel volvulus. This evaluation is to assess for upper GI source or bleeding and anemia. The details are summarized in the history and physical and dictated consultation and progress notes. Procedure: With the patient on her left lateral decubitus position and after informed consent and adequate sedation, I passed the Olympus-GIF H190 video upper endoscope through the cricopharyngeus down the esophagus. There was a sliding hiatal hernia but no obvious esophagitis or complicated reflux disease. The endoscope was then passed into the gastric remnant which was inspected in detail including the retroflex view in the cardia. No obvious abnormalities of bleeding was noted. The endoscope was then passed across the anastomotic site with the small bowel into the small intestine. There was a large marginal ulcer covered with white exudate. There was no restriction to the advancement of the endoscope. Small bowel appeared healthy with no obvious bleeding. I obtained pictures of the marginal ulcer then the endoscope was withdrawn. The patient tolerated the procedure well. Plan: The patient was reassured. Will keep on liquid diet and monitor her blood counts overnight. Did not start Preparation for repeat colonoscopy and we can decide regarding that tomorrow after getting Dr. Pathak's input who performed a colonoscopy last year.
[2018-11-24] MEDS: ACETAMINOPHEN TAB 325 MG TAB PO PRN (13:20)
[2018-11-24 13:51] LABS: Anisocytosis Slight; HCT 24.3 % (34.0-46.0); MCH 29.5 pg (25.0-35.0); MCV 89.4 fL (80.0-100.0); Mean Platelet Volume 12.2; Platelet Count 153 k/uL (150-450); RBC 2.72 m/uL (3.80-5.40); RDW 16.5 % (11.5-15.5); WBC 4.6 k/uL (3.8-10.6)
[2018-11-24 18:08] LABS: HCT 22.4 % (34.0-46.0); HGB 7.6 gm/dL (11.4-16.0); MCH 30.8 pg (25.0-35.0); MCHC 33.9 g/dL (31.0-37.0); MCV 90.8 fL (80.0-100.0); Mean Platelet Volume 11.9; Platelet Count 125 k/uL (150-450); RBC 2.46 m/uL (3.80-5.40); RDW 14.5 % (11.5-15.5); WBC 4.5 k/uL (3.8-10.6)
[2018-11-24] MEDS: MELATONIN 5 MG TABLET PO PRN (21:55)
--- NOTE | 2018-11-24 22:39 | P.PN ---
Subjective Progress Note Date: 11/24/18 Principal diagnosis: Acute GI bleed Patient is a 57-year-old female with a known history of hypertension, history of pulmonary embolism, osteoarthritis and previous history of gastric sleeve with reversal, anxiety/depressed and previous history of smoking came to ER with the complaints of abdominal discomfort and maroon colored stools with clots. His abdominal discomfort is mainly in the epigastric region. Patient has been having dark-red colored stools since yesterday. Patient came to the hospital with hemoglobin level IX.1. Patient has been taking Motrin 3 times daily for the past 2 weeks due to tooth pain. Hemoglobin this morning is 7.8. No complains of dizziness or lightheadedness. No complaints of chest pain or shortness of breath. No cough or sputum producti on. Denied any other recent illnesses. Patient is not on any blood thinners currently at home. CT of the abdominal showed nonspecific gastric findings which appear inflammatory. EKG normal sinus rhythm 11/24/2018 Patient denied any further episodes of rectal bleed. Hemoglobin is 7.4 today. Patient underwent EGD today. Preoperative diagnosis: 1. Sliding hiatal hernia with no obvious esophagitis or complicated reflux disease. 2. Marginal ulcer covered with white exudate with no active bleeding at the time of this exam. GI is following. Planning for colonoscopy. Otherwise patient denied any complaints of chest pain or shortness of breath. No abdominal pain. No nausea vomiting. Tolerating oral diet. Current medications reviewed. Objective - Vital Signs Vital signs: Vital Signs Temp 98.2 F 11/24/18 12:00 Pulse 72 11/24/18 18:00 Resp 16 11/24/18 18:00 BP 115/76 11/24/18 18:00 Pulse Ox 96 11/24/18 18:00 Intake & Output 11/24/18 11/24/18 11/25/18 06:59 18:59 06:59 Intake Total 1200 2200 Balance 1200 2200 Weight 93.9 kg Intake: IV 1200 1500 Sodium Chloride 0.9% 1, 1200 1300 000 ml @ 100 mls/hr IV . Q10H LIN Rx#:[id number] Oral 700 Other: Voiding Method Toilet Toilet # Voids 1 1 # Bowel Movements 1 - Exam PHYSICAL EXAMINATION: Patient is lying in the bed comfortably, no acute distress, awake alert and oriented.. HEENT: Normocephalic. Neck is supple. Pupils reactive. Nostrils clear. Oral cavity is moist. Ears reveal no drainage. Neck reveals no JVD, carotid bruits, or thyromegaly. CHEST EXAMINATION: Trachea is central. Symmetrical expansion. Lung taylor clear to auscultation and percussion. CARDIAC: Normal S1, S2 with no gallops. No murmurs ABDOMEN: Soft. Bowel sounds normal. No organomegaly. No abdominal bruits. Extremities: reveal no edema. No clubbing or cyanosis Neurologically awake, alert, oriented x3 with well-coordinated movements. No focal deficits noted Skin: No rash or skin lesions. Psychiatric: Coperative. Nonsuicidal Musculoskeletal: No joint swelling or deformity. Normal range of motion. - Labs CBC & Chem 7: 11/24/18 17:55 11/24/18 05:39 Labs: Abnormal Lab Results - Last 24 Hours (Table) 11/22/18 11/24/18 11/24/18 Range/Units 17:45 00:00 05:39 RBC 2.56 L (3.80-5.40) m/uL Hgb 7.6 L (11.4-16.0) gm/dL Hct 22.7 L (34.0-46.0) % RDW 16.3 H (11.5-15.5) % Plt Count 143 L (150-450) k/uL Chloride 110 H (98-107) mmol/L Creatinine 0.50 L (0.52-1.04) mg/dL Crossmatch See Detail 11/24/18 11/24/18 11/24/18 Range/Units 05:39 12:53 17:55 RBC 2.42 L 2.72 L 2.46 L (3.80-5.40) m/uL Hgb 7.4 L 8.0 L 7.6 L (11.4-16.0) gm/dL Hct 21.9 L 24.3 L 22.4 L (34.0-46.0) % RDW 16.5 H (11.5-15.5) % Plt Count 137 L 125 L (150-450) k/uL Chloride (98-107) mmol/L Creatinine (0.52-1.04) mg/dL Crossmatch Assessment and Plan Assessment: Acute GI bleed possible upper GI. Status post EGD Acute blood loss anemia secondary to GI bleed Hypertension Osteoarthritis Previous history of pulmonary embolism Anxiety/depression History of gastric sleeve with reversal and Keyona EN Y DVT prophylaxis SCDs Plan: Patient will be continued on IV hydration. Monitor H&H. Continue With the supportive management. Gastroenterology is following. Protonix IV daily. Will follow closely and further recommendations based on the clinical course. Time with Patient: Greater than 30
[2018-11-25 05:32] LABS: Anion Gap 4 mmol/L; Blood Urea Nitrogen 10 mg/dL (7-17); Calcium 8.8 mg/dL (8.4-10.2); Carbon Dioxide 28 mmol/L (22-30); Chloride 108 mmol/L (98-107); Glucose 82 mg/dL (74-99); Potassium 3.9 mmol/L (3.5-5.1); Sodium 140 mmol/L (137-145)
[2018-11-25 07:59] LABS: Basophils % (A) 0 %; Eosinophils # (A) 0.2 k/uL (0-0.7); Eosinophils % (A) 4 %; HCT 23.6 % (34.0-46.0); HGB 7.6 gm/dL (11.4-16.0); Lymphocytes # (A) 1.6 k/uL (1.0-4.8); Lymphocytes % (A) 35 %; MCH 29.5 pg (25.0-35.0); MCHC 32.3 g/dL (31.0-37.0); MCV 91.3 fL (80.0-100.0); Mean Platelet Volume 10.1; Monocytes # (A) 0.3 k/uL (0-1.0); Monocytes % (A) 6 %; Neutrophils # (A) 2.3 k/uL (1.3-7.7); Neutrophils % (A) 52 %; Platelet Count 161 k/uL (150-450); RBC 2.58 m/uL (3.80-5.40); RDW 14.2 % (11.5-15.5); WBC 4.5 k/uL (3.8-10.6)
[2018-11-25] MEDS: PANTOPRAZOLE 40 MG/10 ML VIAL IVP SCH ×2 (08:25→19:55)
[2018-11-25] MEDS: lamoTRIgine 100 MG TAB PO SCH ×2 (08:25→19:55)
[2018-11-25] MEDS: VENLAFAXINE HCL ER 150 MG CAP PO SCH (08:26)
[2018-11-25] MEDS: MORPHINE SULFATE 4 MG/ML SYRINGE IVP PRN ×3 (08:26→21:53)
[2018-11-25] MEDS: ACETAMINOPHEN TAB 325 MG TAB PO PRN (10:17)
[2018-11-25] MEDS: SODIUM CHLORIDE 0.9% 1,000 ML IV SCH ×3 (10:19→20:12)
--- NOTE | 2018-11-25 10:24 | P.PN ---
Subjective Progress Note Date: 11/25/18 Principal diagnosis: Acute GI bleeding, with suspected lower GI in origin with bright red rectal bleeding with clots. This is a very pleasant 57-year-old female patient who follows with Jessica Livingston as her primary care provider. She has a history of anxiety/depression, hypertension, osteoarthritis, previous pulmonary embolism, previous gastric sleeve with reversal and Crista-en-Y procedures. She is a former smoker. She does take Motrin 600 mg every 8 hours for pain as needed. She presented here to the emergency room yesterday with complaints of abdominal discomfort and bright red bowel movements with clots. Initial hemoglobin 9.1. She is seen today in consultation in the intensive care unit. She is awake and alert in no acute distress. She did have another bowel movement with clots this morning. Her hemoglobin is 7.8. The plan is to transfuse one unit. Surgical services and GI services are both consulted. No pulmonary complaints. No cough congestion. No shortness of breath. She is maintaining good O2 saturations in the 90s on room air. She has 0.9 normal saline at 50 MLS per hour. Computed tomography scan of the abdomen revealed nonspecific gastric findings which appear inflammatory. On 11/25/2018 patient seen in follow-up in the intensive care unit, she is awake and alert, in no acute distress, resting comfortably in bed, dysmorphic hemo globin is 7.6. There has been no bleeding, no hematemesis, no rectal bleeding, for 24 hours, this morning's hemoglobin is 7.6. Patient did have a EGD yesterday which revealed no active bleeding, there was a large marginal ulcer noted with a white exudate that was not actively bleeding in the small intestine, patient is being evaluated for possibility of a colonoscopy. Genital patient remains stable, no complaints of abdominal pain, room air pulse ox 94%, no shortness of breath, no chest pain, no fever or chills, lung sounds are clear to auscultation. Sinuses are stable, no tachycardia, patient is sinus rhythm on the monitor with a rate of 70 BPM. The fluids 0.9 normal saline at a rate of 100 ML per hour. Patient remains nothing by mouth for possibility of further endoscopic studies. Objective - Vital Signs Vital signs: Vital Signs Temp 97.8 F 11/25/18 08:00 Pulse 81 04/08/19 10:00 Resp 14 11/25/18 10:00 BP 130/83 11/25/18 10:00 Pulse Ox 97 11/25/18 10:00 Intake & Output 11/24/18 11/25/18 11/25/18 18:59 06:59 18:59 Intake Total 2200 200 240 Balance 2200 200 240 Weight 94.5 kg Intake: IV 1500 200 Sodium Chloride 0.9% 1, 1300 200 000 ml @ 100 mls/hr IV . Q10H LIN Rx#:[id number] Oral 700 240 Other: Voiding Method Toilet Toilet # Voids 1 0 0 - Exam GENERAL EXAM: Alert, pleasant, 57-year-old white female, on room air, with a pulse ox of 97% comfortable in no apparent distress. HEAD: Normocephalic/atraumatic. EYES: Normal reaction of pupils, equal size. Conjunctiva pink, sclera white. NOSE: Clear with pink turbinates. THROAT: No erythema or exudates. NECK: No masses, no JVD, no thyroid enlargement, no adenopathy. CHEST: No chest wall deformity. Symmetrical expansion. LUNGS: Equal air entry with no crackles, wheeze, rhonchi or dullness. CVS: Regular rate and rhythm, normal S1 and S2, no gallops, no murmurs, no rubs ABDOMEN: Soft, nontender. No hepatosplenomegaly, normal bowel sounds, no guarding or rigidity. EXTREMITIES: No clubbing, no edema, no cyanosis, 2+ pulses and upper and lower extremities. MUSCULOSKELETAL: Muscle strength and tone normal. SPINE: No scoliosis or deformity SKIN: No rashes CENTRAL NERVOUS SYSTEM: Alert and oriented -3. No focal deficits, tone is normal in all 4 extremities. PSYCHIATRIC: Alert and oriented -3. Appropriate affect. Intact judgment and insight. - Labs CBC & Chem 7: 11/25/18 04:15 11/25/18 04:19 Labs: Abnormal Lab Results - Last 24 Hours (Table) 11/24/18 11/24/18 11/25/18 Range/Units 12:53 17:55 04:15 RBC 2.72 L 2.46 L 2.58 L (3.80-5.40) m/uL Hgb 8.0 L 7.6 L 7.6 L (11.4-16.0) gm/dL Hct 24.3 L 22.4 L 23.6 L (34.0-46.0) % RDW 16.5 H (11.5-15.5) % Plt Count 125 L (150-450) k/uL Chloride (98-107) mmol/L Creatinine (0.52-1.04) mg/dL 11/25/18 Range/Units 04:19 RBC (3.80-5.40) m/uL Hgb (11.4-16.0) gm/dL Hct (34.0-46.0) % RDW (11.5-15.5) % Plt Count (150-450) k/uL Chloride 108 H (98-107) mmol/L Creatinine 0.50 L (0.52-1.04) mg/dL Assessment and Plan Plan: Assessment: #1 Acute gastrointestinal bleeding suspected lower GI in origin with bright red blood and clots. #2 Anemia secondary to above. Current hemoglobin 7.8. One unit of packed red blood cells are pending. #3 Osteoarthritis utilizing Motrin in the outpatient setting. #4 History of gastric sleeve with reversal and Crista-en-Y procedure. #5 History of anxiety/depression. #6 Hypertension. Plan: We'll continue monitoring the patient, remains hemodynamically stable, there has been no bleeding in the last 24 hours, EGD results were noted, today's hemoglobin is stable at 7.6, she has not required any blood transfusions, she is being evaluated for possibility of colonoscopy, for now she can start on clear liquid diet. No issues overnight. I performed a history & physical examination of the patient and discussed their management with my nurse practitioner, Tea Stevens. I reviewed the nurse practitioner's note and agree with the documented findings and plan of care. Lung sounds are positive for clear lung sounds. The findings and the impression was discussed with the patient. I attest to the documentation by the nurse practitioner. Time with Patient: Less than 30
--- NOTE | 2018-11-25 19:02 | P.PN ---
Subjective Progress Note Date: 11/25/18 She is doing very well. No need for colonoscopy. AVOID MOTRIN, [employer]. Objective - Vital Signs Vital signs: Vital Signs Temp 98.2 F 11/25/18 16:33 Pulse 82 11/25/18 16:33 Resp 17 11/25/18 16:33 BP 122/72 11/25/18 16:33 Pulse Ox 96 11/25/18 16:33 Intake & Output 11/25/18 11/25/18 11/26/18 06:59 18:59 06:59 Intake Total 200 1300 Balance 200 1300 Weight 94.5 kg Intake: IV 200 200 Sodium Chloride 0.9% 1, 200 200 000 ml @ 100 mls/hr IV . Q10H LIN Rx#:[id number] Oral 1100 Other: Voiding Method Toilet Toilet # Voids 0 3 - Labs CBC & Chem 7: 11/25/18 04:15 11/25/18 04:19 Labs: Abnormal Lab Results - Last 24 Hours (Table) 11/25/18 11/25/18 Range/Units 04:15 04:19 RBC 2.58 L (3.80-5.40) m/uL Hgb 7.6 L (11.4-16.0) gm/dL Hct 23.6 L (34.0-46.0) % Chloride 108 H (98-107) mmol/L Creatinine 0.50 L (0.52-1.04) mg/dL
[2018-11-25] MEDS: SODIUM FERRIC GLUCONAT-SUCROSE 125 MG in SODIUM CHLORIDE 0.9% 100 ML IVPB SCH (19:43)
--- NOTE | 2018-11-25 20:11 | P.PN ---
Subjective Progress Note Date: 11/25/18 Principal diagnosis: GI bleed The patient was seen sitting bedside. She is reporting feeling better. She is still having some abdominal cramping but denies any further hematochezia or melena. No bowel movement today. Objective - Vital Signs Vital signs: Vital Signs Temp 98.2 F 11/25/18 20:00 Pulse 83 11/25/18 20:00 Resp 16 11/25/18 20:00 BP 110/68 11/25/18 20:00 Pulse Ox 98 11/25/18 20:00 Intake & Output 11/25/18 11/25/18 11/26/18 06:59 18:59 06:59 Intake Total 200 1300 Balance 200 1300 Weight 94.5 kg Intake: IV 200 200 Sodium Chloride 0.9% 1, 200 200 000 ml @ 100 mls/hr IV . Q10H LIN Rx#:[id number] Oral 1100 Other: Voiding Method Toilet Toilet # Voids 0 3 - Exam On physical examination, patient appears comfortable in no apparent distress. HEAD: Normocephalic, atraumatic. EYES: No scleral icterus. No conjunctival injection. MOUTH: No lesions, tongue midline. NECK: Trachea midline, no gross abnormalities. CHEST: Clear to auscultation with no wheezing or rhonchi appreciated. HEART: Regular rate and rhythm. ABDOMEN: Soft, obese. Bowel sounds are positive. No organomegaly. No guarding or rigidity. EXTREMITIES: No pedal edema. SKIN: No rashes, no jaundice. NEUROLOGIC: Alert and oriented x3. No focal deficits. - Labs CBC & Chem 7: 11/25/18 04:15 11/25/18 04:19 Labs: Abnormal Lab Results - Last 24 Hours (Table) 11/25/18 11/25/18 Range/Units 04: 04: RBC 2.58 L (3.80-5.40) m/uL Hgb 7.6 L (11.4-16.0) gm/dL Hct 23.6 L (34.0-46.0) % Chloride 108 H (98-107) mmol/L Creatinine 0.50 L (0.52-1.04) mg/dL Assessment and Plan (1) GI bleed Narrative/Plan: Patient presenting with complaints of blood/che stools per rectum. She was taken for upper endoscopy with findings of an anastomotic site ulcer in a patient with previous gastric bypass surgery. No further signs or symptoms of GI bleeding. Hemoglobin has remained stable at 7.6 from 7.6 previously. Current Visit: Yes Status: Acute Code(s): K92.2 - GASTROINTESTINAL HEMORRHAGE, UNSPECIFIED SNOMED Code(s): 07569521 (2) Anemia associated with acute blood loss Current Visit: Yes Status: Acute Code(s): D62 - ACUTE POSTHEMORRHAGIC ANEMIA SNOMED Code(s): 284414116 Plan: Supportive care Continue to monitor for signs or symptoms of GI bleeding Continue to monitor hemoglobin and transfuse as needed Continue Protonix therapy Will order iron studies, B12 and folate No plans for colonoscopic evaluation at this time Diet has been advanced to low fiber Thank you for allowing us to participate in the care of the patient we will continue to follow
[2018-11-25] MEDS: SUCRALFATE 1 GM TAB PO SCH (21:53)
[2018-11-25] MEDS: MELATONIN 5 MG TABLET PO PRN (22:05)
[2018-11-26 06:28] LABS: HCT 22.2 % (34.0-46.0); HGB 7.2 gm/dL (11.4-16.0); MCH 29.2 pg (25.0-35.0); MCHC 32.4 g/dL (31.0-37.0); MCV 90.1 fL (80.0-100.0); Mean Platelet Volume 9.3; Platelet Count 165 k/uL (150-450); RBC 2.46 m/uL (3.80-5.40); RDW 14.2 % (11.5-15.5); WBC 4.9 k/uL (3.8-10.6)
[2018-11-26 06:35] LABS: ALT 25 U/L (9-52); AST 15 U/L (14-36); Albumin 2.6 g/dL (3.5-5.0); Alkaline Phosphatase 49 U/L (38-126); Anion Gap 4 mmol/L; Blood Urea Nitrogen 11 mg/dL (7-17); Calcium 8.7 mg/dL (8.4-10.2); Carbon Dioxide 29 mmol/L (22-30); Chloride 106 mmol/L (98-107); Glucose 77 mg/dL (74-99); Phosphorus 3.9 mg/dL (2.5-4.5); Potassium 3.7 mmol/L (3.5-5.1); Sodium 139 mmol/L (137-145); Total Bilirubin 0.1 mg/dL (0.2-1.3); Total Protein 4.6 g/dL (6.3-8.2)
[2018-11-26] MEDS: SUCRALFATE 1 GM TAB PO SCH (06:48)
[2018-11-26 08:47] VITALS: PULSE 75; RESP 16
[2018-11-26] MEDS: VENLAFAXINE HCL ER 150 MG CAP PO SCH (08:48)
[2018-11-26] MEDS: lamoTRIgine 100 MG TAB PO SCH (08:48)
[2018-11-26] MEDS: PANTOPRAZOLE 40 MG/10 ML VIAL IVP SCH (08:49)
[2018-11-26] MEDS: MORPHINE SULFATE 4 MG/ML SYRINGE IVP PRN ×2 (08:56→13:48)
--- NOTE | 2018-11-26 09:13 | P.PN ---
Subjective Progress Note Date: 11/26/18 Principal diagnosis: GI bleed Feels well but reports some mild abdominal cramping to the mid left abdomen. Denies hematemesis hematochezia or melena. Afebrile. No emesis. Hemoglobin 7.2. Tolerating low residue diet. Objective - Vital Signs Vital signs: Vital Signs Temp 97.8 F 11/26/18 08:00 Pulse 75 11/26/18 08:00 Resp 16 11/26/18 08:00 BP 116/80 11/26/18 08:00 Pulse Ox 94 L 11/26/18 08:00 Intake & Output 11/25/18 11/26/18 11/26/18 18:59 06:59 18:59 Intake Total 1300 100 Balance 1300 100 Weight 95.3 kg Intake: IV 200 0 Sodium Chloride 0.9% 1, 200 0 000 ml @ 20 mls/hr IV . Q24H [facility] Rx#:[id number] Intake, IV Titration 100 Amount Sodium Ferric Gluconat- 100 Sucrose 125 mg In Sodium Chloride 0.9% 100 ml @ 100 mls/hr IVPB DAILY@ 1200 [facility] Rx#:[id number] Oral 1100 Other: Voiding Method Toilet Toilet Toilet # Voids 3 2 - Exam General appearance: The patient is alert, oriented, in no acute distress. HET: Head is normocephalic and atraumatic. Pupils are equal and reactive. Oropharynx is clear without lesions. Neck: Supple without lymphadenopathy. Trachea midline. Heart: S1 S2. Regular rate and rhythm. Lungs: No crackles or wheezes are heard. Abdomen: Soft, very mild tenderness to the mid abdomen as well as left mid quadrant, nondistended with bowel sounds. No peritoneal signs. No palpable organomegaly or masses. Extremities: Normal skin color and turgor. No cyanosis, rash, ulceration, clubbing, or edema. Radial and pedal pulses are 2/4 bilaterally. Neurological: No focal deficits. Strength and sensation are grossly intact. - Labs CBC & Chem 7: 11/26/18 05:20 11/26/18 05:20 Labs: Abnormal Lab Results - Last 24 Hours (Table) 11/26/18 11/26/18 Range/Units 05:20 05:20 RBC 2.46 L (3.80-5.40) m/uL Hgb 7.2 L (11.4-16.0) gm/dL Hct 22.2 L (34.0-46.0) % Total Bilirubin 0.1 L (0.2-1.3) mg/dL Total Protein 4.6 L (6.3-8.2) g/dL Albumin 2.6 L (3.5-5.0) g/dL Assessment and Plan (1) GI bleed Narrative/Plan: Status post EGD findings of an anastomotic ulcer with a history of previous gastric bypass surgery. Hemoglobin 7.2 no active episodes of hematemesis hematochezia melena. Current Visit: Yes Status: Acute Code(s): K92.2 - GASTROINTESTINAL HEMORRHAGE, UNSPECIFIED SNOMED Code(s): 22907200 (2) Anemia associated with acute blood loss Current Visit: Yes Status: Acute Code(s): D62 - ACUTE POSTHEMORRHAGIC ANEMIA SNOMED Code(s): 387373108 Plan: 1. Supportive care. Discharge per medicine/surgery. Continue monitor CBC. Protonix 40 mg twice daily. Carafate 1 g twice daily. Assessment and plan a care discussed with Dr. Harmon
[2018-11-26] MEDS: SODIUM FERRIC GLUCONAT-SUCROSE 125 MG in SODIUM CHLORIDE 0.9% 100 ML IVPB SCH (12:00)
[2018-11-26 12:08] VITALS: BP 126/80; TEMP 98.2
[2018-11-26] MEDS: ACETAMINOPHEN TAB 325 MG TAB PO PRN (12:16)
--- NOTE | 2018-11-26 12:18 | P.PN ---
Subjective Progress Note Date: 11/26/18 Principal diagnosis: Acute GI bleeding, with suspected lower GI in origin with bright red rectal bleeding with clots. This is a very pleasant 57-year-old female patient who follows with Jessica Livingston as her primary care provider. She has a history of anxiety/depression, hypertension, osteoarthritis, previous pulmonary embolism, previous gastric sleeve with reversal and Crista-en-Y procedures. She is a former smoker. She does take Motrin 600 mg every 8 hours for pain as needed. She presented here to the emergency room yesterday with complaints of abdominal discomfort and bright red bowel movements with clots. Initial hemoglobin 9.1. She is seen today in consultation in the intensive care unit. She is awake and alert in no acute distress. She did have another bowel movement with clots this morning. Her hemoglobin is 7.8. The plan is to transfuse one unit. Surgical services and GI services are both consulted. No pulmonary complaints. No cough congestion. No shortness of breath. She is maintaining good O2 saturations in the 90s on room air. She has 0.9 normal saline at 50 MLS per hour. Computed tomography scan of the abdomen revealed nonspecific gastric findings which appear inflammatory. On 11/25/2018 patient seen in follow-up in the intensive care unit, she is awake and alert, in no acute distress, resting comfortably in bed, dysmorphic hemo globin is 7.6. There has been no bleeding, no hematemesis, no rectal bleeding, for 24 hours, this morning's hemoglobin is 7.6. Patient did have a EGD yesterday which revealed no active bleeding, there was a large marginal ulcer noted with a white exudate that was not actively bleeding in the small intestine, patient is being evaluated for possibility of a colonoscopy. Genital patient remains stable, no complaints of abdominal pain, room air pulse ox 94%, no shortness of breath, no chest pain, no fever or chills, lung sounds are clear to auscultation. Sinuses are stable, no tachycardia, patient is sinus rhythm on the monitor with a rate of 70 BPM. The fluids 0.9 normal saline at a rate of 100 ML per hour. Patient remains nothing by mouth for possibility of further endoscopic studies. On 11/26/2018 patient seen in follow-up in the intensive care unit, she is awake and alert, in no acute distress, has not had any further bleeding since the day before yesterday, immobile globin is stable, hemodynamically patient is stable, there is no globin 7.2. Electrolytes and renal profile within normal limits, signs are stable. Lung sounds are clear, no shortness of breath, mild abdominal cramping, no plans for colonoscopy at this time, increase patient's activity as tolerated. She is receiving iron transfusions. Objective - Vital Signs Vital signs: Vital Signs Temp 98.2 F 11/26/18 12:00 Pulse 75 11/26/18 08:00 Resp 16 11/26/18 12:00 BP 126/80 11/26/18 12:00 Pulse Ox 96 11/26/18 12:00 Intake & Output 11/25/18 11/26/18 11/26/18 18:59 06:59 18:59 Intake Total 1300 100 Balance 1300 100 Weight 95.3 kg Intake: IV 200 0 Sodium Chloride 0.9% 1, 200 0 000 ml @ 20 mls/hr IV . Q24H [facility] Rx#:[id number] Intake, IV Titration 100 Amount Sodium Ferric Gluconat- 100 Sucrose 125 mg In Sodium Chloride 0.9% 100 ml @ 100 mls/hr IVPB DAILY@ 1200 [facility] Rx#:[id number] Oral 1100 Other: Voiding Method Toilet Toilet Toilet # Voids 3 2 - Exam GENERAL EXAM: Alert, pleasant, 57-year-old white female, on room air, with a pulse ox of 97% comfortable in no apparent distress. HEAD: Normocephalic/atraumatic. EYES: Normal reaction of pupils, equal size. Conjunctiva pink, sclera white. NOSE: Clear with pink turbinates. THROAT: No erythema or exudates. NECK: No masses, no JVD, no thyroid enlargement, no adenopathy. CHEST: No chest wall deformity. Symmetrical expansion. LUNGS: Equal air entry with no crackles, wheeze, rhonchi or dullness. CVS: Regular rate and rhythm, normal S1 and S2, no gallops, no murmurs, no rubs ABDOMEN: Soft, nontender. No hepatosplenomegaly, normal bowel sounds, no guarding or rigidity. EXTREMITIES: No clubbing, no edema, no cyanosis, 2+ pulses and upper and lower extremities. MUSCULOSKELETAL: Muscle strength and tone normal. SPINE: No scoliosis or deformity SKIN: No rashes CENTRAL NERVOUS SYSTEM: Alert and oriented -3. No focal deficits, tone is normal in all 4 extremities. PSYCHIATRIC: Alert and oriented -3. Appropriate affect. Intact judgment and insight. - Labs CBC & Chem 7: 11/26/18 05:20 11/26/18 05:20 Labs: Abnormal Lab Results - Last 24 Hours (Table) 11/26/18 11/26/18 Range/Units 05:20 05:20 RBC 2.46 L (3.80-5.40) m/uL Hgb 7.2 L (11.4-16.0) gm/dL Hct 22.2 L (34.0-46.0) % Total Bilirubin 0.1 L (0.2-1.3) mg/dL Total Protein 4.6 L (6.3-8.2) g/dL Albumin 2.6 L (3.5-5.0) g/dL Assessment and Plan Plan: Assessment: #1 Acute gastrointestinal bleeding suspected lower GI in origin with bright red blood and clots. #2 Anemia secondary to above. Current hemoglobin 7.8. One unit of packed red blood cells are pending. #3 Osteoarthritis utilizing Motrin in the outpatient setting. #4 History of gastric sleeve with reversal and Crista-en-Y procedure. #5 History of anxiety/depression. #6 Hypertension. Plan: Hemodynamic patient remains stable, no acute issues overnight. Has not had any further bleeding, no plans for colonoscopy, from pulmonary/critical care perspective patient is stable for discharge home today if cleared by GI service. Otherwise patient can transfer out of the intensive care unit, to general medical floor. I performed a history & physical examination of the patient and discussed their management with my nurse practitioner, Tea Stevens. I reviewed the nurse practitioner's note and agree with the documented findings and plan of care. Lung sounds are positive for clear lung sounds. The findings and the impression was discussed with the patient. I attest to the documentation by the nurse practitioner. Time with Patient: Less than 30
[2018-11-26 12:31] LABS: Folate, Serum 23.3 ng/mL
--- NOTE | 2018-11-26 12:32 | P.PN ---
Subjective Progress Note Date: 11/26/18 CHIEF COMPLAINT: GI bleed HISTORY OF PRESENT ILLNESS: Patient seen and examined at bedside. Patient denies abdominal pain. Denies further episodes of bleeding. Tolerating diet. Denies nausea or vomiting. Hemoglobin 7.2. PHYSICAL EXAM: VITAL SIGNS: Reviewed. GENERAL: Well-developed in no acute distress. HEENT: No sclera icterus. Extraocular movements grossly intact. Moist buccal mucosa. Head is atraumatic, normocephalic. ABDOMEN: Soft. Nondistended. Nontender. NEUROLOGIC: Alert and oriented. Cranial nerves II through XII grossly intact. ASSESSMENT: 1. GI bleeding 2. Acute blood loss anemia PLAN: Patient is stable from a surgical standpoint. No need for colonoscopy. Reinforced to patient no aspirin or NSAIDs. Nurse practitioner note has been reviewed by physician. Signing provider agrees with the documented findings, assessment, and plan of care. Objective - Vital Signs Vital signs: Vital Signs Temp 98.2 F 11/26/18 12:00 Pulse 75 11/26/18 08:00 Resp 16 11/26/18 12:00 BP 126/80 11/26/18 12:00 Pulse Ox 96 11/26/18 12:00 Intake & Output 11/25/18 11/26/18 11/26/18 18:59 06:59 18:59 Intake Total 1300 100 Balance 1300 100 Weight 95.3 kg Intake: IV 200 0 Sodium Chloride 0.9% 1, 200 0 000 ml @ 20 mls/hr IV . Q24H [facility] Rx#:[id number] Intake, IV Titration 100 Amount Sodium Ferric Gluconat- 100 Sucrose 125 mg In Sodium Chloride 0.9% 100 ml @ 100 mls/hr IVPB DAILY@ 1200 [facility] Rx#:[id number] Oral 1100 Other: Voiding Method Toilet Toilet Toilet # Voids 3 2 - Labs CBC & Chem 7: 11/26/18 05:20 11/26/18 05:20 Labs: Abnormal Lab Results - Last 24 Hours (Table) 11/26/18 11/26/18 Range/Units 05:20 05:20 RBC 2.46 L (3.80-5.40) m/uL Hgb 7.2 L (11.4-16.0) gm/dL Hct 22.2 L (34.0-46.0) % Total Bilirubin 0.1 L (0.2-1.3) mg/dL Total Protein 4.6 L (6.3-8.2) g/dL Albumin 2.6 L (3.5-5.0) g/dL Assessment and Plan (1) Anemia associated with acute blood loss Current Visit: Yes Status: Acute Code(s): D62 - ACUTE POSTHEMORRHAGIC ANEMIA SNOMED Code(s): 680035046 (2) GI bleed Current Visit: Yes Status: Acute Code(s): K92.2 - GASTROINTESTINAL HEMORRHAGE, UNSPECIFIED SNOMED Code(s): 66250008 (3) Gastroesophageal reflux disease Current Visit: No Status: Acute Code(s): K21.9 - GASTRO-ESOPHAGEAL REFLUX DISEASE WITHOUT ESOPHAGITIS SNOMED Code(s): 162401722 (4) Hx of gastric bypass Current Visit: No Status: Acute Code(s): Z98.84 - BARIATRIC SURGERY STATUS SNOMED Code(s): 859053574
[2018-11-26 23:19] LABS: Iron Saturation 31.64 (12.00-45.00)
== END 2018-11-26 14:46 | disposition home or self-care (01) | DRG 378 ==
LOC: EC 16:43 → 2SICU 22:01
PROVIDERS: ADMIT Internal Medicine; ATTEND Internal Medicine
PROC: 0DJ08ZZ Inspection of Upper Intestinal Tract, Via Natural or Artificial Opening Endoscopic (ICD-10-PCS; principal; 2018-11-24 11:34)
DX: K92.2 Gastrointestinal hemorrhage, unspecified (principal); D62 Acute posthemorrhagic anemia; F32.9 Major depressive disorder, single episode, unspecified; F41.9 Anxiety disorder, unspecified; I10 Essential (primary) hypertension; K21.9 Gastro-esophageal reflux disease without esophagitis; K28.9 Gastrojejunal ulcer, unspecified as acute or chronic, without hemorrhage or perforation; K29.70 Gastritis, unspecified, without bleeding; K44.9 Diaphragmatic hernia without obstruction or gangrene; M19.90 Unspecified osteoarthritis, unspecified site; S02.5XXA Fracture of tooth (traumatic), initial encounter for closed fracture; R10.9 Unspecified abdominal pain; Z79.899 Other long term (current) drug therapy; Z86.711 Personal history of pulmonary embolism; Z98.84 Bariatric surgery status; Z90.49 Acquired absence of other specified parts of digestive tract; Z90.710 Acquired absence of both cervix and uterus; Z87.891 Personal history of nicotine dependence; Z86.010 Personal history of colon polyps; Z80.0 Family history of malignant neoplasm of digestive organs; Z82.49 Family history of ischemic heart disease and other diseases of the circulatory system
CPT/HCPCS: 36415; 43235; 74177; 80048; 80053; 82272; 82607; 82728; 82746; 83540; 83550; 83605; 83735; 84100; 84484; 85025; 85027; 85610; 85730; 86850; 86900; 86901; 86920; 93005; 96361; 96374; 96375; 96376; 99285

== ENCOUNTER 2019-02-05 08:56 | Day surgery (SDC) | payer BC ==
[2019-02-04 13:46] VITALS: BMI 31.6
--- NOTE | 2019-02-04 22:15 | P.GSHP ---
History of Present Illness H&P Date: 02/05/19 CHIEF COMPLAINT: GERD HISTORY OF PRESENT ILLNESS: The patient is a 58-year-old female who presents reports gastroesophageal reflux disease. Upper endoscopy was offered for further evaluation and management. PAST MEDICAL HISTORY: Please see list. PAST SURGICAL HISTORY: Please see list. MEDICATIONS: Please see list. ALLERGIES: Please see list. SOCIAL HISTORY: No illicit drug use FAMILY HISTORY: No reports of Crohn disease or ulcerative colitis. REVIEW OF ORGAN SYSTEMS: CONSTITUTIONAL: No reports of fevers or chills. GI: Denies any blood in stools or constipation. PHYSICAL EXAM: VITAL SIGNS: Stable GENERAL: Well-developed and pleasant in no acute distress. HEENT: No scleral icterus. Extraocular movements grossly intact. Moist buccal mucosa. NECK: Supple without lymphadenopathy. CHEST: Unlabored respirations. Equal bilateral excursions. CARDIOVASCULAR: Regular rate and rhythm. Distal 2+ pulses. ABDOMEN: Soft, nondistended. MUSCULOSKELETAL: No clubbing, cyanosis, or edema. ASSESSMENT: 1. Gastroesophageal reflux disease PLAN: 1. Recommend proceeding with an upper endoscopy Past Medical History Past Medical History: GERD/Reflux, GI Bleed, Hypertension, Osteoarthritis (OA), Pulmonary Embolus (PE) Additional Past Medical History / Comment(s): PE (2009).,HX OF GI BLEED- HOSPITALIZED NOVEMBER 2018, HIATAL HERNIA, STOMACH ULCER, KEYONA-EN-Y History of Any Multi-Drug Resistant Organisms: None Reported Past Surgical History: Bariatric Surgery, Bladder Surgery, Cholecystectomy, Hernia Repair, Hysterectomy, Orthopedic Surgery Additional Past Surgical History / Comment(s): gastric sleeve with reversal and Keyona EN Y (2016), right shoulder, bilateral hand, skin grafts to legs, COLONOSCOPIES, EGD'S Past Anesthesia/Blood Transfusion Reactions: No Reported Reaction Past Psychological History: Anxiety, Depression Smoking Status: Former smoker Past Alcohol Use History: None Reported Additional Past Alcohol Use History / Comment(s): QUIT SMOKING 2017, SMOKED 1/2 PPD, SMOKED FOR 41 YEARS. Past Drug Use History: None Reported - Past Family History Father Family Medical History: Cancer Additional Family Medical History / Comment(s): Colon Cancer Mother Additional Family Medical History / Comment(s): Heart attack while on the toilet. Medications and Allergies Home Medications Medication Instructions Recorded Confirmed Type Multivitamins, Thera [Multivitamin 1 tab PO DAILY 04/04/18 02/04/19 History (formulary)] Melatonin 10 mg PO HS PRN 05/06/18 02/04/19 History Venlafaxine HCl [Effexor XR] 150 mg PO DAILY 11/22/18 02/04/19 History lamoTRIgine [LaMICtal] 150 mg PO BID 11/22/18 02/04/19 History Pantoprazole Sodium [Protonix] 40 mg PO BID #60 tablet. 11/26/18 02/04/19 Rx Acetaminophen [Tylenol Extra 1,000 mg PO DIRECTED PRN 02/04/19 02/04/19 History Strength] Deplin (Depression Supplement) 1 tab PO DAILY 02/04/19 History Furosemide [Lasix] 20 mg PO HS 02/04/19 02/04/19 History Furosemide [Lasix] 40 mg PO QAM 02/04/19 02/04/19 History Lisinopril [Zestril] 5 mg PO DAILY 02/04/19 02/04/19 History Sominex 1 tab PO HS PRN 02/04/19 History Sucralfate [Carafate] 1 gm PO BID 02/04/19 02/04/19 History Vitamin K 200 mcg PO DAILY 02/04/19 02/04/19 History Allergies Allergy/AdvReac Type Severity Reaction Status Date / Time aspirin Allergy Unknown No aspirin Verified 02/04/19 13:22 after Keyona-en-y ibuprofen [From Motrin] AdvReac Severe Abdominal Verified 11/25/18 19:18 Pain
[2019-02-05 09:16] VITALS: TEMP 98.7
[2019-02-05] MEDS ORDERED: LACTATED RINGERS 1,000 ML IV ONE (09:25)
[2019-02-05] MEDS ORDERED: LIDOCAINE 1% 20 ML VIAL (10MG/ML) FOR IV START INTRADERMA ONE (09:33)
[2019-02-05] MEDS ORDERED: fentaNYL (PF) 50 MCG/ML 2 ML AMP ONE (09:56)
[2019-02-05] MEDS ORDERED: PROPOFOL 10 MG/ML 20 ML VIAL IV ONE (09:56)
[2019-02-05] MEDS ORDERED: LIDOCAINE 1% INJ 10MG/ML (20 ML MDV) ONE (09:56)
[2019-02-05 10:22] VITALS: RESP 18
--- NOTE | 2019-02-05 10:25 | P.PCN ---
Date of Procedure: 02/05/19 Description of Procedure: PREOPERATIVE DIAGNOSIS: Dysphagia. History of gastrointestinal bleed secondary to gastric ulcer Epigastric abdominal pain Gastrointestinal bleed History of anemia secondary to chronic blood loss POSTOPERATIVE DIAGNOSIS: Dysphagia. 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 SURGEON: Ania Pathak MD ANESTHESIA: MAC. INDICATIONS: The patient is a 58-year-old female who presents with a history of epigastric abdominal pain, gastrointestinal bleed and history of ulcers. Benefits and risks of the procedure were described. Informed consent was obtained. DESCRIPTION: The patient was brought into the endoscopy suite and laid in the left lateral decubitus position. After a timeout was confirmed, the procedure was initiated. An Olympus gastroscope was passed along the posterior oropharynx down to the distal esophagus where the squamocolumnar junction was unremarkable. The gastric pouch was entered. A gastrojejunal stricture of 16 mm was found as the adult gastroscope was 9.5 mm in size. A [employer] balloon dilator was placed through the scope. Final insufflation up to 20 mm was performed with a total of 2 minutes. The scope was advanced up to 60 cm from the incisors into the Crista limb. The mucosa of the gastrojejunal anastomosis was intact. No chronic gastrojejunal marginal ulcer was encountered. No full-thickness injury was encountered. The GI tract was desufflated. The patient tolerated the procedure well. FINDINGS: Squamocolumnar junction at 40 cm. LA grade D erosive esophagitis, chronic Stricture of approximately 16 mm encountered. Resolved gastrojejunal ulceration Successful balloon dilatation to 20 mm. Gastric pouch 5 cm. RECOMMENDATIONS: For persistent gastrointestinal hemorrhage, recommend colonoscopy Plan - Discharge Summary New Discharge Prescriptions: No Action Multivitamins, Thera [Multivitamin (formulary)] 1 tab PO DAILY Melatonin 10 mg PO HS PRN PRN Reason: Insomnia lamoTRIgine [LaMICtal] 150 mg PO BID Venlafaxine HCl [Effexor XR] 150 mg PO DAILY Pantoprazole Sodium [Protonix] 40 mg PO BID #60 tablet. Sucralfate [Carafate] 1 gm PO BID Lisinopril [Zestril] 5 mg PO DAILY Sominex 1 tab PO HS PRN PRN Reason: Insomnia Deplin (Depression Supplement) 1 tab PO DAILY Acetaminophen [Tylenol Extra Strength] 1,000 mg PO DIRECTED PRN PRN Reason: Pain Vitamin K 200 mcg PO DAILY Furosemide [Lasix] 40 mg PO QAM Furosemide [Lasix] 20 mg PO HS Discharge Medication List Multivitamins, Thera [Multivitamin (formulary)] 1 tab PO DAILY 04/04/18 [History] Melatonin 10 mg PO HS PRN 05/06/18 [History] Venlafaxine HCl [Effexor XR] 150 mg PO DAILY 11/22/18 [History] lamoTRIgine [LaMICtal] 150 mg PO BID 11/22/18 [History] Pantoprazole Sodium [Protonix] 40 mg PO BID #60 tablet. 11/26/18 [Rx] Acetaminophen [Tylenol Extra Strength] 1,000 mg PO DIRECTED PRN 02/04/19 [History] Deplin (Depression Supplement) 1 tab PO DAILY 02/04/19 [History] Furosemide [Lasix] 20 mg PO HS 02/04/19 [History] Furosemide [Lasix] 40 mg PO QAM 02/04/19 [History] Lisinopril [Zestril] 5 mg PO DAILY 02/04/19 [History] Sominex 1 tab PO HS PRN 02/04/19 [History] Sucralfate [Carafate] 1 gm PO BID 02/04/19 [History] Vitamin K 200 mcg PO DAILY 02/04/19 [History] Follow up Appointment(s)/Referral(s): Ania Pathak MD [STAFF PHYSICIAN] - 02/25/19 Patient Instructions/Handouts: Esophageal Stricture (DC), Esophageal Dilation (DC) Activity/Diet/Wound Care/Special Instructions: Regular diet Discharge Disposition: HOME SELF-CARE
[2019-02-05 10:38] VITALS: BP 127/67; PULSE 64
== END 2019-02-05 11:05 | disposition home or self-care (01) ==
LOC: ORWHC2ENDO 08:56
PROVIDERS: ATTEND Surgery Plastic and Reconstructive Surgery
DX: K95.89 Other complications of other bariatric procedure (principal); K21.9 Gastro-esophageal reflux disease without esophagitis; Z87.891 Personal history of nicotine dependence; Z90.49 Acquired absence of other specified parts of digestive tract; Z90.710 Acquired absence of both cervix and uterus; F41.9 Anxiety disorder, unspecified; F32.9 Major depressive disorder, single episode, unspecified; Z80.0 Family history of malignant neoplasm of digestive organs; Z82.49 Family history of ischemic heart disease and other diseases of the circulatory system; I10 Essential (primary) hypertension; Z86.711 Personal history of pulmonary embolism; Z79.899 Other long term (current) drug therapy; Z88.6 Allergy status to analgesic agent
CPT/HCPCS: 43245; J2001; J3010; J2704; C1726

== ENCOUNTER → 2019-02-26 | Outpatient (CLI) | payer BC ==
[2019-02-26 12:02] LABS: Anisocytosis Slight; HCT 34.1 % (34.0-46.0); HGB 10.8 gm/dL (11.4-16.0); Hypochromasia Slight; MCH 26.3 pg (25.0-35.0); MCHC 31.7 g/dL (31.0-37.0); Platelet Count 170 k/uL (150-450); RBC 4.11 m/uL (3.80-5.40); RDW 18.3 % (11.5-15.5); WBC 4.5 k/uL (3.8-10.6)
[2019-02-26 12:23] LABS: INR 0.9 (<1.2); Partial Thromboplastin Time 22.4 sec (22.0-30.0); Prothrombin Time 9.8 sec (9.0-12.0)
[2019-02-26 19:02] LABS: Vitamin D 25 Hydroxy 43.1 ng/mL (30.0-100.0)
[2019-02-26 19:04] LABS: African American GFR (CKD) 81.1 (60.0-200.0); Albumin 4.3 g/dL (3.80-4.90); Albumin/Globulin Ratio 2.87 (1.60-3.17); Anion Gap 5.9 mmol/L (4.00-12.00); BUN/Creat Ratio 13.33 Ratio (12.00-20.00); Calcium 9.4 mg/dL (8.7-10.3); Carbon Dioxide 31.1 mmol/L (21.6-31.8); Folate, Serum >24.0 ng/mL; Globulin 1.5 g/dL (1.6-3.3); LDL Cholesterol,Calculated 86.2 mg/dL (0.0-131.0); Magnesium 2.1 mg/dL (1.5-2.4); Phosphorus 4.6 mg/dL (2.4-5.1); Potassium 4.1 mmol/L (3.5-5.5); Total Bilirubin 0.4 mg/dL (0.3-1.2); Total Protein 5.8 g/dL (6.2-8.2); VLDL Calculation 20.8 mg/dL (5.00-40.00)
[2019-02-26 19:13] LABS: Parathyroid Hormone Intact 79.6 pg/mL (14.0-72.0)
[2019-02-26 22:17] LABS: Hemoglobin A1C 5.6 % (4.0-6.0)
[2019-02-27 13:04] LABS: Zinc, Serum 82 ug/dL (60-130)
[2019-02-27 13:41] LABS: Vit B1(Thiamine) 74 ug/L (38-122)
[2019-02-28 06:46] LABS: Vitamin A 62 ug/dL (38-106)
== END | disposition home or self-care (01) ==
LOC: LABWHC1 11:36
PROVIDERS: ATTEND Surgery Plastic and Reconstructive Surgery
DX: E66.01 Morbid (severe) obesity due to excess calories (principal); E21.1 Secondary hyperparathyroidism, not elsewhere classified; D50.8 Other iron deficiency anemias; K90.89 Other intestinal malabsorption; E44.0 Moderate protein-calorie malnutrition; E55.9 Vitamin D deficiency, unspecified; E89.1 Postprocedural hypoinsulinemia; K74.1 Hepatic sclerosis; N19 Unspecified kidney failure; K50.90 Crohn's disease, unspecified, without complications
CPT/HCPCS: 36415; 80053; 80061; 82306; 82525; 82607; 82728; 82746; 83036; 83540; 83550; 83735; 83970; 84100; 84134; 84255; 84425; 84443; 84590; 84630; 85027; 85610; 85730

== ENCOUNTER 2019-03-20 07:18 | Day surgery (SDC) | payer BC ==
[2019-03-18 10:38] VITALS: BMI 31.3
[~2019-03-20 07:18] MED LIST changes: -DEXAMETHASONE SOD PHOSPHATE 10 MG/ML 1 ML VIAL IV ONE; -HEPARIN SODIUM,PORCINE 5,000 UNIT/ML 1 ML VIAL SQ ONE; +LIDOCAINE 1% 20 ML VIAL (10MG/ML) FOR IV START INTRADERMA PRN; -MIDAZOLAM 2 MG/2 ML VIAL IV PRN; -ONDANSETRON 4 MG/2 ML VIAL IVP ONE; -SCOPOLAMINE 1.5MG/72HR PATCH TRANSDERM ONE; -ceFAZolin IN SWFI 2 GM/20 ML SYRINGE IVP ONE; -fentaNYL (PF) 50 MCG/ML 2 ML AMP IV PRN
--- NOTE | 2019-03-20 07:37 | P.GSHP ---
History of Present Illness H&P Date: 03/20/19 CHIEF COMPLAINT: GERD HISTORY OF PRESENT ILLNESS: The patient is a 58-year-old female who presents reports gastroesophageal reflux disease. Upper endoscopy was offered for further evaluation and management. PAST MEDICAL HISTORY: Please see list. PAST SURGICAL HISTORY: Please see list. MEDICATIONS: Please see list. ALLERGIES: Please see list. SOCIAL HISTORY: No illicit drug use FAMILY HISTORY: No reports of Crohn disease or ulcerative colitis. REVIEW OF ORGAN SYSTEMS: CONSTITUTIONAL: No reports of fevers or chills. GI: Denies any blood in stools or constipation. PHYSICAL EXAM: VITAL SIGNS: Stable GENERAL: Well-developed and pleasant in no acute distress. HEENT: No scleral icterus. Extraocular movements grossly intact. Moist buccal mucosa. NECK: Supple without lymphadenopathy. CHEST: Unlabored respirations. Equal bilateral excursions. CARDIOVASCULAR: Regular rate and rhythm. Distal 2+ pulses. ABDOMEN: Soft, nondistended. MUSCULOSKELETAL: No clubbing, cyanosis, or edema. ASSESSMENT: 1. Gastroesophageal reflux disease PLAN: 1. Recommend proceeding with an upper endoscopy Past Medical History Past Medical History: GERD/Reflux, GI Bleed, Hypertension, Osteoarthritis (OA), Pulmonary Embolus (PE) Additional Past Medical History / Comment(s): PE (2009).,HX OF GI BLEED/ulcer- HOSPITALIZED NOVEMBER 2018, HIATAL HERNIA, KEYONA-EN-Y, diff swallowing History of Any Multi-Drug Resistant Organisms: None Reported Past Surgical History: Bariatric Surgery, Bladder Surgery, Cholecystectomy, Hernia Repair, Hysterectomy, Orthopedic Surgery Additional Past Surgical History / Comment(s): gastric sleeve with reversal and Keyona EN Y (2016), right shoulder surgery, bilateral hand surgery, skin grafts to legs, COLONOSCOPIES, EGD'S, hiatal hernia surgery x2, surgery for bowel obstruction Past Anesthesia/Blood Transfusion Reactions: No Reported Reaction Smoking Status: Former smoker - Past Family History Father Family Medical History: Cancer Additional Family Medical History / Comment(s): Colon Cancer Mother Additional Family Medical History / Comment(s): Heart attack while on the toilet. Medications and Allergies Home Medications Medication Instructions Recorded Confirmed Type Multivitamins, Thera [Multivitamin 1 tab PO DAILY 04/04/18 03/18/19 History (formulary)] Melatonin 10 mg PO HS 05/06/18 03/18/19 History Venlafaxine HCl [Effexor XR] 150 mg PO DAILY 11/22/18 03/18/19 History lamoTRIgine [LaMICtal] 150 mg PO BID 11/22/18 03/18/19 History Acetaminophen [Tylenol Extra 1,000 mg PO DIRECTED PRN 02/04/19 03/18/19 History Strength] Deplin (Depression Supplement) 1 tab PO DAILY 02/04/19 03/18/19 History Furosemide [Lasix] 20 mg PO HS 02/04/19 03/18/19 History Furosemide [Lasix] 40 mg PO QAM 02/04/19 03/18/19 History Sominex 1 tab PO HS PRN 02/04/19 03/18/19 History Vitamin K 200 mcg PO DAILY 02/04/19 03/18/19 History Pantoprazole Sodium [Protonix] 40 mg PO DAILY #90 tablet. 02/05/19 03/18/19 Rx ALPRAZolam [Xanax] 0.25 mg PO BID PRN 03/18/19 03/18/19 History Allergies Allergy/AdvReac Type Severity Reaction Status Date / Time aspirin Allergy Unknown No aspirin Verified 03/18/19 10:27 after Keyona-en-y ibuprofen [From Motrin] AdvReac Severe Abdominal Verified 03/18/19 10:27 Pain
[2019-03-20 07:43] VITALS: TEMP 97.8
[2019-03-20] MEDS ORDERED: PROPOFOL 10 MG/ML 20 ML VIAL IV ONE (07:54)
[2019-03-20] MEDS ORDERED: LIDOCAINE 1% INJ 10MG/ML (20 ML MDV) ONE (07:54)
[2019-03-20 08:22] VITALS: RESP 17
--- NOTE | 2019-03-20 08:23 | P.PCN ---
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 INDICATIONS: The patient is a 58-year-old female who presents with a history of anemia, gastric ulcers, gastroesophageal reflux disease. Benefits and risks of the procedure were described. Informed consent was obtained. DESCRIPTION: The patient was brought into the endoscopy suite and laid in the left lateral decubitus position. After a timeout was confirmed, the procedure was initiated. An Olympus gastroscope was passed along the posterior oropharynx down to the distal esophagus where the squamocolumnar junction was remarkable for a 2 cm length Portillo's esophagus without active inflammation with biopsies cold forceps obtained. The gastric pouch was entered. A gastrojejunal stricture of 15 mm was found as the adult gastroscope was 9.5 mm in size. A Abzena balloon dilator was placed through the scope. Final insufflation up to 20 mm was performed with a total of 2 minutes. The scope was advanced up to 60 cm from the incisors into the Crista limb. The mucosa of the gastrojejunal anastomosis was intact. Resolved chronic gastrojejunal marginal ulcer was encountered. No full-thickness injury was encountered. The GI tract was desufflated. The patient tolerated the procedure well. FINDINGS: Squamocolumnar junction unremarkable at 40 cm. Stricture of approximately 15 mm encountered. Chronic gastrojejunal ulceration resolved Successful balloon dilatation to 20 mm. Diaphragmatic hiatus at 40 cm. Portillo's esophagus 2 cm length with biopsies obtained without active inflammation RECOMMENDATIONS: Will need yearly upper endoscopy for Portillo's esophagus Plan - Discharge Summary Discharge Rx Participant: No New Discharge Prescriptions: No Action Multivitamins, Thera [Multivitamin (formulary)] 1 tab PO DAILY Melatonin 10 mg PO HS lamoTRIgine [LaMICtal] 150 mg PO BID Venlafaxine HCl [Effexor XR] 150 mg PO DAILY Sominex 1 tab PO HS PRN PRN Reason: Insomnia Deplin (Depression Supplement) 1 tab PO DAILY Acetaminophen [Tylenol Extra Strength] 1,000 mg PO DIRECTED PRN PRN Reason: Pain Vitamin K 200 mcg PO DAILY Furosemide [Lasix] 40 mg PO QAM Furosemide [Lasix] 20 mg PO HS Pantoprazole Sodium [Protonix] 40 mg PO DAILY #90 tablet. ALPRAZolam [Xanax] 0.25 mg PO BID PRN PRN Reason: Anxiety Discharge Medication List Multivitamins, Thera [Multivitamin (formulary)] 1 tab PO DAILY 04/04/18 [History] Melatonin 10 mg PO HS 05/06/18 [History] Venlafaxine HCl [Effexor XR] 150 mg PO DAILY 11/22/18 [History] lamoTRIgine [LaMICtal] 150 mg PO BID 11/22/18 [History] Acetaminophen [Tylenol Extra Strength] 1,000 mg PO DIRECTED PRN 02/04/19 [History] Deplin (Depression Supplement) 1 tab PO DAILY 02/04/19 [History] Furosemide [Lasix] 20 mg PO HS 02/04/19 [History] Furosemide [Lasix] 40 mg PO QAM 02/04/19 [History] Sominex 1 tab PO HS PRN 02/04/19 [History] Vitamin K 200 mcg PO DAILY 02/04/19 [History] Pantoprazole Sodium [Protonix] 40 mg PO DAILY #90 tablet. 02/05/19 [Rx] ALPRAZolam [Xanax] 0.25 mg PO BID PRN 03/18/19 [History] Follow up Appointment(s)/Referral(s): Ania Pahtak MD [STAFF PHYSICIAN] - 04/08/19 Patient Instructions/Handouts: Esophageal Dilation (DC), Portillo Esophagus (DC) Activity/Diet/Wound Care/Special Instructions: Regular diet Discharge Disposition: HOME SELF-CARE
[2019-03-20 08:34] VITALS: BP 129/84; PULSE 69
== END 2019-03-20 09:22 | disposition home or self-care (01) ==
LOC: ORWHC2ENDO 07:18
PROVIDERS: ATTEND Surgery Plastic and Reconstructive Surgery
DX: K21.9 Gastro-esophageal reflux disease without esophagitis (principal); K22.2 Esophageal obstruction; K22.70 Barrett's esophagus without dysplasia; D64.9 Anemia, unspecified; F32.9 Major depressive disorder, single episode, unspecified; I10 Essential (primary) hypertension; K44.9 Diaphragmatic hernia without obstruction or gangrene; M19.90 Unspecified osteoarthritis, unspecified site; Z86.711 Personal history of pulmonary embolism; Z87.19 Personal history of other diseases of the digestive system; Z87.891 Personal history of nicotine dependence; Z88.6 Allergy status to analgesic agent; Z90.49 Acquired absence of other specified parts of digestive tract; Z98.84 Bariatric surgery status; Z79.899 Other long term (current) drug therapy
CPT/HCPCS: 88305; 43239; 43245; J2001; J2704; C1726

== ENCOUNTER → 2021-08-16 | Outpatient (CLI) | payer BC ==
[2021-08-16 13:29] LABS: Prothrombin Time 10.5 sec (9.0-12.0)
[2021-08-16 18:30] LABS: HCT 37.5 % (37.2-46.3); HGB 11.3 g/dL (12.0-15.0); MCH 26.2 pg (27.0-32.0); MCHC 30.1 g/dL (32.0-37.0); MCV 86.8 fL (80.0-97.0); Mean Platelet Volume 12.3 fL (9.5-12.2); Platelet Count 235 X 10*3/uL (140-440); RBC 4.32 X 10*6/uL (4.10-5.20); RDW 14.8 % (11.5-14.5); WBC 5.73 X 10*3/uL (4.50-10.00)
[2021-08-16 19:57] LABS: ALT 16 U/L (8-44); AST 27 U/L (13-35); African American GFR (CKD) 108.4 (60.0-200.0); Albumin 4.4 g/dL (3.8-4.9); Alkaline Phosphatase 93 U/L (41-126); BUN/Creat Ratio 10.29 Ratio (12.00-20.00); Blood Urea Nitrogen 7.2 mg/dL (9.0-27.0); Calcium 9.4 mg/dL (8.7-10.3); Carbon Dioxide 27.3 mmol/L (20.0-27.5); Chloride 99 mmol/L (96-109); Chol/HDL Ratio 3.29 Ratio; Ferritin 17.9 ng/mL (10.0-291.0); Glucose 108 mg/dL (70-110); Iron 36 ug/dL (50-170); LDL Cholesterol,Calculated 111.2 mg/dL (0.0-131.0); Magnesium 2.3 mg/dL (1.5-2.4); Non-African American GFR(CKD) 93.5 (60.0-200.0); Phosphorus 3.7 mg/dL (2.4-5.1); Prealbumin 22.4 mg/dL (18.0-42.0); Sodium 139 mmol/L (135-145); Total Iron Binding Capacity 431 ug/dL (228-460); Total Protein 6.4 g/dL (6.2-8.2)
[2021-08-17 11:21] LABS: Zinc, Serum 79 ug/dL (60-130)
[2021-08-18 05:58] LABS: Vitamin A 57 ug/dL (38-106)
[2021-08-18 06:07] LABS: Vit B1(Thiamine) 64 ug/L (38-122)
== END | disposition home or self-care (01) ==
LOC: LABWHC1 11:58
PROVIDERS: ATTEND Surgery Plastic and Reconstructive Surgery
DX: I11.9 Hypertensive heart disease without heart failure (principal); E66.1 Drug-induced obesity; D50.8 Other iron deficiency anemias; E89.1 Postprocedural hypoinsulinemia; E44.0 Moderate protein-calorie malnutrition; E55.9 Vitamin D deficiency, unspecified; K74.1 Hepatic sclerosis; N19 Unspecified kidney failure; K50.90 Crohn's disease, unspecified, without complications
CPT/HCPCS: 36415; 80053; 80061; 82306; 82525; 82607; 82728; 82746; 83036; 83540; 83550; 83735; 83970; 84100; 84134; 84255; 84425; 84443; 84590; 84630; 85027; 85610; 85730; 93005

== ENCOUNTER → 2021-09-09 | Outpatient (CLI) | payer BC | LOC: LABPAT 09:17 | PROVIDERS: ATTEND Surgery Plastic and Reconstructive Surgery | DX: Z20.822 Contact with and (suspected) exposure to COVID-19 (principal) | CPT/HCPCS: U0003; C9803; U0005 ==

== ENCOUNTER → 2021-11-07 | Outpatient (CLI) | payer BC ==
[~2021-11-07] MED LIST changes: +DOBUTamine DRIP for NUC MED 500 MG in DEXTROSE/WATER 1 250ML.BAG IV PRN; +DOBUTamine DRIP for NUC MED 500 MG/250 ML BAG IV ONE; -LACTATED RINGERS 1,000 ML IV SCH; -LIDOCAINE 1% 20 ML VIAL (10MG/ML) FOR IV START INTRADERMA PRN
--- NOTE | 2021-11-07 15:51 | P.STRESS ---
- Stress Test Note Stress Test Results/Findings: Exam Performed: dobutamine stress echo Exam Date: 11/07/21 Reason for Exam: Pre-op Height: 5 ft 7 in Weight: 92.986 kg Protocol: Dobutamine stress echo Stage: IV Duration of Exercise: 14:33 min Resting Heart Rate: 68 Resting Blood Pressure: 132/78 Maximum Achieved Heart Rate: 127 Maximum Achieved Blood Pressure: 194/69 85% PMHR: 135 100% PMHR: 159 METS: Technologist Comment: Stress Test Results/Findings: Baseline heart rate 68 beats a minute, Baseline blood pressure 132/78 mmHg Baseline twelve-lead EKG showed normal sinus rhythm incomplete right bundle branch block with ST segment abnormalities Patient received dobutamine infusion per protocol up to 40 mics Occasional PVCs and ventricular couplets noted [address] depression noted inferiorly during dobutamine infusion that resolved quickly to the recovery Baseline 2-D echo showed normal LV systolic function without segmental wall motion abnormalities With dobutamine is a cystic twice augmentation of overall LV contractility without development of the wall motion abnormalities @Recovery region global LV systolic function remained normal Impression Abnormal ECG with a [address] depression noted but without any menstruate echocardiographic abnormalities
--- NOTE | 2021-11-08 13:01 | ECHOF ---
Referral Reason:R94.31 MEASUREMENTS -------- HEIGHT: 170.2 cm WEIGHT: 93.0 kg BP: IVSd: 1.4 cm (0.6 - 1.1) LVIDd: 3.9 cm (3.9 - 5.3) LVPWd: 1.3 cm (0.6 - 1.1) IVSs: 1.8 cm LVIDs: 2.8 cm LVPWs: 1.8 cm LAESV Index (A-L): 36.47 ml/m Ao Diam: 3.6 cm (2.0 - 3.7) AV Cusp: 2.0 cm (1.5 - 2.6) MV EXCURSION: 13.261 mm (> 18.000) MV EF SLOPE: 73 mm/s (70 - 150) EPSS: 1.3 cm MV E Nick: 0.89 m/s MV DecT: 151 ms MV A Nick: 1.00 m/s MV E/A Ratio: 0.89 RAP: 20.00 mmHg RVSP: 47.74 mmHg FINDINGS -------- Sinus rhythm. This was a technically adequate study. The left ventricular size is normal. There is moderate concentric left ventricular hypertrophy. O verall left ventricular systolic function is normal with, an EF between 55 - 60 %. The right ventricle is normal in size. LA is moderately dilated 34-39 ml/m2 The right atrial size is normal. Interatrial and interventricular septum intact. There is mild aortic valve sclerosis. There is no evidence of aortic regurgitation. There is no e vidence of aortic stenosis. Moderate mitral regurgitation is present. Roip-sv-[id number] tricuspid regurgitation present. There is moderate pulmonary hypertension. The r ight ventricular systolic pressure, as measured by Doppler, is 47.74mmHg. There is no pulmonic regurgitation present. The aortic root size is normal. The inferior vena cava is dilated with poor inspiratory collapse which is consistent with estimated r ight atrial pressure of 20 mmHg. There is no pericardial effusion. CONCLUSIONS -------- 1. The left ventricular size is normal. 2. There is moderate concentric left ventricular hypertrophy. 3. Overall left ventricular systolic function is normal with, an EF between 55 - 60 %. 4. LA is moderately dilated 34-39 ml/m2 5. There is mild aortic valve sclerosis. 6. Moderate mitral regurgitation is present. 7. Hxiu-uu-bbawsolv tricuspid regurgitation present. 8. There is moderate pulmonary hypertension. 9. The right ventricular systolic pressure, as measured by Doppler, is 47.74mmHg. 10. The inferior vena cava is dilated with poor inspiratory collapse which is consistent with estimat ed right atrial pressure of 20 mmHg. EARLY CHILDHOOD SERVICES COORDINATOR: Ronda Simpson RDCS
== END | disposition home or self-care (01) ==
LOC: RADNMMAIN 09:05
PROVIDERS: ATTEND Internal Medicine
DX: R94.31 Abnormal electrocardiogram [ECG] [EKG] (principal)
CPT/HCPCS: 93306; 93351

== ENCOUNTER 2021-12-16 07:01 | Day surgery (SDC) | payer BC ==
[2021-12-15 08:52] VITALS: BMI 30.5
--- NOTE | 2021-12-16 06:48 | P.GSHP ---
History of Present Illness H&P Date: 12/16/21 CHIEF COMPLAINT: Ventral hernia. HISTORY OF PRESENT ILLNESS: The patient is a 60-year-old female who presents with swelling along the abdomen for over 6 month with pain and tenderness. Findings were consistent with incisionall hernia. She reports change in bowel habits as a result. Now she presents for further evaluation and management. PAST MEDICAL HISTORY: Please see list and reviewed. PAST SURGICAL HISTORY: Please see list and reviewed. MEDICATIONS: Please see list and reviewed. ALLERGIES: Please see list and reviewed. SOCIAL HISTORY: Please see list and reviewed. FAMILY HISTORY: No reports of Crohn disease or ulcerative colitis. REVIEW OF ORGAN SYSTEMS: CONSTITUTIONAL: No reports of fevers or chills. GI: Denies any blood in stools or constipation. Gastroesophageal reflux disease. HEENT: Denies any trouble with vision, hearing or nosebleeds. No difficulty swallowing. LYMPHATIC: The patient denies any lumps and bumps around the neck. ENDOCRINE: Denies any thyroid disorders. Denies any blood sugar glucose intolerance. RESPIRATORY: Denies pneumonia. Denies any troubles with breathing or dyspnea on exertion. Past pulmonary embolism. CARDIOVASCULAR: Denies any chest pain, palpitations, or recent heart attacks. Has hypertension. GENITOURINARY: Denies any blood in urine or increased urinary frequency. MUSCULOSKELETAL: Has any back pain, stiffness, joint arthritis. NEUROLOGIC: Denies any numbness or tingling along the distal extremities. No seizure disorders or headaches. PSYCHIATRIC: Has depression. No suidical ideation. HEMATOLOGIC: Denies any abnormal bleeding or bruising. BREASTS: Denies any breast lumps, pain or nipple discharge. PHYSICAL EXAM: VITAL SIGNS: Stable GENERAL: Well-developed pleasant female in no acute distress. HEENT: No scleral icterus. Extraocular movements grossly intact. Moist buccal mucosa. NECK: Supple without lymphadenopathy. CHEST: Unlabored respirations. Equal bilateral excursions. CARDIOVASCULAR: Regular rate and rhythm. Distal 2+ pulses. ABDOMEN: Soft, nondistended. Tender along the abdomen. Protuberant. MUSCULOSKELETAL: No clubbing, cyanosis, or edema. SKIN: Well perfused. PSYCH: Alert and oriented. No focal or lateralizing signs. ASSESSMENT: 1. Ventral hernia. PLAN: 1. Recommend proceeding with robotic ventral hernia repair with mesh. 2. Benefits and risks of surgical intervention was discussed including possibility of open technique. 3. DVT prophylaxis. 4. Antibiotic prophylaxis. 5. She is elevated risk with hypertensive heart disease, history of pulmonary embolism. Past Medical History Past Medical History: GERD/Reflux, Hypertension, Osteoarthritis (OA), Pulmonary Embolus (PE) Additional Past Medical History / Comment(s): HX BLEEDING ULCER -HOSPITALIZED 2019, HX OF LEG ULCERS WITH SKIN GRAFTS., HIATAL HERNIA W/SURGERY., ARTHUR-EN-Y., HTN RESOLVED WITH WT LOSS., HAS 2 PELVIC FX'S FROM RECENT FALL. , INCISIONAL HERNIA. History of Any Multi-Drug Resistant Organisms: None Reported Past Surgical History: Bariatric Surgery, Bladder Surgery, Cholecystectomy, Hernia Repair, Hysterectomy, Orthopedic Surgery Additional Past Surgical History / Comment(s): gastric sleeve with reversal and Arthur EN Y (2017), right shoulder surgery, bilateral hand surgery, skin grafts to legs, COLONOSCOPIES, EGD'S, hiatal hernia surgery x2, surgery for bowel obstruction X2, cataracts. Past Anesthesia/Blood Transfusion Reactions: No Reported Reaction Past Psychological History: ADD/ADHD, Anxiety, Depression Smoking Status: Former smoker Past Alcohol Use History: None Reported Additional Past Alcohol Use History / Comment(s): QUIT SMOKING 2016, SMOKED 1/2 PPD, SMOKED 41 YEARS. Past Drug Use History: None Reported - Past Family History Father Family Medical History: Cancer Additional Family Medical History / Comment(s): Colon Cancer Mother Family Medical History: Myocardial Infarction (OR) Additional Family Medical History / Comment(s): Heart attack while on the toilet. Medications and Allergies Home Medications Medication Instructions Recorded Confirmed Type Venlafaxine HCl [Effexor XR] 150 mg PO DAILY 11/22/18 12/15/21 History lamoTRIgine [LaMICtal] 150 mg PO BID 11/22/18 12/15/21 History ALPRAZolam [Xanax] 0.25 mg PO QID 03/18/19 12/15/21 History Dextroamphetamine/Amphetamine 20 mg PO TID PRN 09/09/21 12/15/21 History [Adderall] ARIPiprazole [Abilify] 10 mg PO HS 12/15/21 12/15/21 History Fexofenadine HCl [Felicia Allergy] 180 mg PO DAILY 12/15/21 12/15/21 History Furosemide [Lasix] 80 mg PO BID 12/15/21 12/15/21 History Gabapentin 600 mg PO BID 12/15/21 12/15/21 History HYDROcodone/APAP 5-325MG [[place] 1 tab PO Q6HR PRN 12/15/21 12/15/21 History 5-325] Multivit with Calcium,Iron,Min 1 each PO DAILY 12/15/21 12/15/21 History [Women's Multivitamin] Sucralfate [Carafate] 1 gm PO QID 12/15/21 12/15/21 History Vitamin B-12 (Unknown Dose) 1 tab PO DAILY 12/15/21 History Vitamin D 3 (Unknown Dose) 1 cap PO DAILY 12/15/21 History guanFACINE HCL [Intuniv] 4 mg PO HS 12/15/21 12/15/21 History Allergies Allergy/AdvReac Type Severity Reaction Status Date / Time aspirin Allergy Unknown No aspirin Verified 12/15/21 08:09 after Arthur-en-y ibuprofen [From Motrin] AdvReac Severe hx Verified 12/15/21 08:29 bleeding ulcer, & no nsaids after arthur-en-y
[~2021-12-16 07:01] MED LIST changes: +ACETAMINOPHEN TAB 500 MG TAB PO PRN; +DEXAMETHASONE SOD PHOSPHATE 4 MG/ML 1 ML VIAL IV ONE; -DOBUTamine DRIP for NUC MED 500 MG in DEXTROSE/WATER 1 250ML.BAG IV PRN; -DOBUTamine DRIP for NUC MED 500 MG/250 ML BAG IV ONE; +GABAPENTIN 300 MG CAP PO PRN; +HEPARIN SODIUM,PORCINE/PF 5,000 UNIT/0.5 ML SYRINGE SQ PRN; +LACTATED RINGERS 1,000 ML IV SCH; +MIDAZOLAM 2 MG/2 ML VIAL IV PRN; +ONDANSETRON 4 MG/2 ML VIAL IVP ONE; +SCOPOLAMINE 1 MG/72 HR PATCH TRANSDERM ONE
[2021-12-16] MEDS ORDERED: MIDAZOLAM 2 MG/2 ML VIAL IV ONE (08:31)
[2021-12-16] MEDS ORDERED: ePHEDrine 50 MG/ML 1 ML VIAL ONE (08:52)
[2021-12-16] MEDS ORDERED: HYDROmorphone (PF) 1 MG/ML ONE (08:52)
[2021-12-16] MEDS ORDERED: ROPIVACAINE 5 MG/ML 30 ML VIAL ONE (08:52)
[2021-12-16] MEDS ORDERED: DEXAMETHASONE SOD PHOSPHATE 4 MG/ML 1 ML VIAL ONE (08:52)
[2021-12-16] MEDS ORDERED: PROPOFOL 10 MG/ML 20 ML VIAL IV ONE (08:52)
[2021-12-16] MEDS ORDERED: GLYCOPYRROLATE 0.2 MG/ML 2 ML VIAL ONE (08:52)
[2021-12-16] MEDS ORDERED: fentaNYL (PF) 50 MCG/ML 2 ML AMP ONE (08:52)
[2021-12-16] MEDS ORDERED: NEOSTIGMINE 1 MG/ML 10 ML VIAL ONE (08:52)
[2021-12-16] MEDS ORDERED: ROCURONIUM 10 MG/ML (5 ML VIAL) IV ONE (08:52)
[2021-12-16] MEDS ORDERED: LIDOCAINE 2% INJ 20 MG/ML (2 ML VIAL) ONE (08:52)
[2021-12-16] MEDS ORDERED: SUCCINYLCHOLINE CHLORIDE 100 MG/5 ML SYR IV ONE (08:52)
[2021-12-16 08:53] LABS: Basophils # (A) 0.1 k/uL (0-0.2); Basophils % (A) 1 %; Eosinophils # (A) 0.2 k/uL (0-0.7); Eosinophils % (A) 3 %; HCT 37.4 % (34.0-46.0); HGB 11.6 gm/dL (11.4-16.0); Lymphocytes # (A) 1.2 k/uL (1.0-4.8); Lymphocytes % (A) 21 %; MCH 26.5 pg (25.0-35.0); MCV 85.5 fL (80.0-100.0); Mean Platelet Volume 9.5; Monocytes # (A) 0.4 k/uL (0-1.0); Monocytes % (A) 7 %; Neutrophils # (A) 3.8 k/uL (1.3-7.7); Neutrophils % (A) 65 %; Platelet Count 233 k/uL (150-450); RBC 4.37 m/uL (3.80-5.40); RDW 14.3 % (11.5-15.5); WBC 5.8 k/uL (3.8-10.6)
[2021-12-16 08:58] LABS: ALT 16 U/L (4-34); AST 39 U/L (14-36); African American GFR (CKD) >90 (>60 ml/min/1.73 sqM); Albumin 4.1 g/dL (3.5-5.0); Alkaline Phosphatase 147 U/L (38-126); Anion Gap 6 mmol/L; Blood Urea Nitrogen 11 mg/dL (7-17); Calcium 9.3 mg/dL (8.4-10.2); Carbon Dioxide 34 mmol/L (22-30); Chloride 97 mmol/L (98-107); Glucose 93 mg/dL (74-99); Non-African American GFR(CKD) >90 (>60 ml/min/1.73 sqM); Sodium 137 mmol/L (137-145); Total Protein 7.1 g/dL (6.3-8.2)
[2021-12-16 09:01] LABS: Potassium 3.9 mmol/L (3.5-5.1)
[2021-12-16] MEDS ORDERED: BUPIVACAIN-EPI 0.25%-1:200,000 30 ML VIAL SQ ONE (09:17)
--- NOTE | 2021-12-16 09:17 | P.ANPRN ---
Procedure Note - Anesthesia - Nerve Block Performed Bilateral Erector Spinae Single Time Out Performed: Yes Date of Procedure: 12/16/21 Procedure Start Time: : Procedure Stop Time: :47 Location of Patient: PreOp Indication: Acute Post-Operative Pain, Requested by Surgeon Sedation Type: Sedate with meaningful contact maintained Preparation: Sterile Prep, Sterile Dressing Position: Prone Catheter: None Needle Types: Facet Needle Gauge: 20 Ultrasound used to visualize needle placement: Yes Ultrasound used to observe medication spread: Yes Injectate: Other (see comment) (ropivacain 0.25% 30 ml + decadron 4 mg per side) Blood Aspirated: No Pain Paresthesia on Injection Noted: No Resistance on Injection: Normal Image Stored and Saved: Yes Events: Uneventful and Well Tolerated
[2021-12-16] MEDS ORDERED: LACTATED RINGERS 1,000 ML IV ONE (10:06)
[2021-12-16 10:25] VITALS: TEMP 97.2
--- NOTE | 2021-12-16 10:30 | P.OP ---
Date of Procedure: 12/16/21 Description of Procedure: SURGEON: MIKAELA PATHAK MD PREOPERATIVE DIAGNOSES: 1. Recurrent incisional ventral hernia with incarceration 2. Hypertensive heart disease with congestive heart failure 3. History of pulmonary embolism 4. Gastroesophageal reflux disease with Portillo's esophagus 5. Chronic pain syndrome 6. Depressive disorder 7. Generalized anxiety disorder 8. ADHD POSTOPERATIVE DIAGNOSES: 1. Recurrent incisional ventral hernia with incarceration and intermittent bowel obstruction, 6 x 5 cm 2. Hypertensive heart disease with congestive heart failure 3. History of pulmonary embolism 4. Gastroesophageal reflux disease with Portillo's esophagus 5. Chronic pain syndrome 6. Depressive disorder 7. Generalized anxiety disorder 8. ADHD 9. Diastases recti OPERATION: 1. Robotic-assisted da Shravan Xi laparoscopic repair of recurrent incarcerated incisional ventral hernia with mesh, ventralight ST mesh 11.4 cm Anesthesia: GETA, regional, local Estimated Blood Loss (ml): 5 Pathology: NONE COMPLICATIONS: None. Operative Findings: 1. Upper midline epigastric ventral hernia defect 6 x 5 cm 2. Fascia repaired using #1 V-lock suture 3. Incarcerated omentum and small bowel reduced 4. Diastases recti from the subxiphoid to the pubis of 4 cm measured. INDICATIONS: The patient is a 60-year-old female who presents with a personal history of multiple abdominal wall hernias. Surgical intervention with laparoscopic versus robotic and open techniques were reviewed. Placement of mesh was also reviewed. Benefits and risks were thoroughly described. Informed consent was obtained. DESCRIPTION OF PROCEDURE: The patient was brought into the operating room and laid in supine position. After general induction, the abdomen had been prepped and draped in standard sterile fashion. Ioban draping was also placed. Prior to incision, a timeout protocol was confirmed with surgical team regarding the patient's name including procedures to be performed. The robot was primed prior to the procedure. A field block using local anesthetic was placed along hernia site including the proposed port sites. Initial incision was made with an #11 blade along the left upper quadrant. A 0 degree 5 mm laparoscopic trocar entry was performed and insufflated. Three 8 mm ports were placed along the left lateral abdominal wall under direct localization after exchanging the 5-mm for an 8 mm port. Placements of the ports were 15 cm from the target anatomy and 10 cm apart. An accessory 12 mm port was placed at the left epigastrium for exchange of mesh including sutures. The da Shravan Xi robot was previously primed, prepped and draped then docked from the right side of the patient onto the left side of the patient. I then sat at the robot Da Shravan Xi console where working arms of the robot including Bovie cautery connected to robotic scissors, needle catshovel driver, and graspers placed by the preschool assistant principal. Incarcerated omental contents were found along the upper midline defect involving omentum including small bowel. The defect was reduced measuring Upper midline defect 6 x 5 cm. Diastases recti from the subxiphoid to the pubis of 4 cm measured. The incarcerated contents were reduced as the peritoneal fat was cleaned from the abdominal wall. Next, hemostasis was checked with cautery. The hernia defects were oversewn using #1 nonabsorbable V-lock suture with fascial plication 2. Next, ventralight ST mesh 11.4 cm was placed with the rough side towards the abdominal wall as to cover the defect, an underlay. 2-0 VLOC 9 inch absorbable sutures were used to fixate the mesh. A final endoscopic imaging was obtained. All instruments and pneumoperitoneum were evacuated from the abdominal cavity. The da Shravan Xi robot was undocked from the patient. I re-scrubbed into the case for closure of incisions. The fascia of the 12-mm port was probed and oversewn using 0 Vicryl in [place]. The incisions were reapproximated using 4-0 Monocryl in an interrupted subcuticular fashion. Liquid glue was applied to the skin after cleansing the skin with normal saline and dilute hydrogen peroxide. An abdominal binder was placed. At the end of the procedure, needle, sponge, and instrument count had been verified correct by surgical instruments inspector. The patient was taken to the postanesthesia care unit in stable condition. Plan - Discharge Summary Discharge Rx Participant: No New Discharge Prescriptions: New Simethicone [Gas-X] 125 mg PO AC-TID PRN #20 capsule PRN Reason: Pain Acetaminophen Tab [Tylenol Tab] 500 mg PO Q6H PRN #30 tablet PRN Reason: Pain Continue lamoTRIgine [LaMICtal] 150 mg PO BID Venlafaxine HCl [Effexor XR] 150 mg PO DAILY ALPRAZolam [Xanax] 0.25 mg PO QID HYDROcodone/APAP 5-325MG [[place] 5-325] 1 tab PO Q6HR PRN PRN Reason: Pain Vitamin D 3 (Unknown Dose) 1 cap PO DAILY Multivit with Calcium,Iron,Min [Women's Multivitamin] 1 each PO DAILY Dextroamphetamine/Amphetamine [Adderall] 20 mg PO TID PRN PRN Reason: for focus Sucralfate [Carafate] 1 gm PO QID guanFACINE HCL [Intuniv] 4 mg PO HS Gabapentin 600 mg PO BID Furosemide [Lasix] 80 mg PO BID Fexofenadine HCl [Felicia Allergy] 180 mg PO DAILY ARIPiprazole [Abilify] 10 mg PO HS Vitamin B-12 (Unknown Dose) 1 tab PO DAILY Discharge Medication List Venlafaxine HCl [Effexor XR] 150 mg PO DAILY 11/22/18 [History] lamoTRIgine [LaMICtal] 150 mg PO BID 11/22/18 [History] ALPRAZolam [Xanax] 0.25 mg PO QID 03/18/19 [History] Dextroamphetamine/Amphetamine [Adderall] 20 mg PO TID PRN 09/09/21 [History] ARIPiprazole [Abilify] 10 mg PO HS 12/15/21 [History] Fexofenadine HCl [Felicia Allergy] 180 mg PO DAILY 12/15/21 [History] Furosemide [Lasix] 80 mg PO BID 12/15/21 [History] Gabapentin 600 mg PO BID 12/15/21 [History] HYDROcodone/APAP 5-325MG [[place] 5-325] 1 tab PO Q6HR PRN 12/15/21 [History] Multivit with Calcium,Iron,Min [Women's Multivitamin] 1 each PO DAILY 12/15/21 [History] Sucralfate [Carafate] 1 gm PO QID 12/15/21 [History] Vitamin B-12 (Unknown Dose) 1 tab PO DAILY 12/15/21 [History] Vitamin D 3 (Unknown Dose) 1 cap PO DAILY 12/15/21 [History] guanFACINE HCL [Intuniv] 4 mg PO HS 12/15/21 [History] Acetaminophen Tab [Tylenol Tab] 500 mg PO Q6H PRN #30 tablet 12/16/21 [Rx] Simethicone [Gas-X] 125 mg PO AC-TID PRN #20 capsule 12/16/21 [Rx] Follow up Appointment(s)/Referral(s): Mikaela Pathak MD [STAFF PHYSICIAN] - 12/20/21 (Telehealth) Patient Instructions/Handouts: *[facility] - Anesthesia Discharge Instructions, How to Use an Incentive Spirometer (DC), Laparoscopic Herniorrhaphy (IP), Incisional Hernia (GEN), Ventral Hernia Repair (GEN) Activity/Diet/Wound Care/Special Instructions: Using antibacterial soap HIBICLENS. No lifting over 4 pounds 4 weeks, January 15 NOTIFY YOUR PAIN SPECIALIST FOR ADDITIONAL NARCOTICS IF NEEDED May shower. No bathtub soaks for 2 weeks, December 30 Wear abdominal binder daily for comfort except for showering. Use ice along incisions for today to prevent swelling. Take tylenol simethicone scheduled for 3 days for best pain relief. Tylenol last taken at 0809 AM. Discharge Disposition: HOME SELF-CARE
[2021-12-16] MEDS: HYDROmorphone 0.5 MG/0.5 ML SYRINGE IVP PRN ×2 (10:40→10:59)
[2021-12-16 15:25] VITALS: BP 142/70; PULSE 62; RESP 15
== END 2021-12-16 15:23 | disposition home or self-care (01) ==
LOC: OR 07:01
PROVIDERS: ATTEND Surgery Plastic and Reconstructive Surgery
DX: K43.0 Incisional hernia with obstruction, without gangrene (principal); I11.0 Hypertensive heart disease with heart failure; I50.9 Heart failure, unspecified; K21.9 Gastro-esophageal reflux disease without esophagitis; K22.70 Barrett's esophagus without dysplasia; G89.4 Chronic pain syndrome; F32.A Depression, unspecified; F41.1 Generalized anxiety disorder; F90.9 Attention-deficit hyperactivity disorder, unspecified type; M62.08 Separation of muscle (nontraumatic), other site; Z86.711 Personal history of pulmonary embolism; Z98.84 Bariatric surgery status; Z87.891 Personal history of nicotine dependence; Z87.19 Personal history of other diseases of the digestive system; Z98.890 Other specified postprocedural states; Z90.49 Acquired absence of other specified parts of digestive tract; Z79.899 Other long term (current) drug therapy; Z88.6 Allergy status to analgesic agent; Z88.8 Allergy status to other drugs, medicaments and biological substances; Z98.49 Cataract extraction status, unspecified eye; Z80.0 Family history of malignant neoplasm of digestive organs; Z82.49 Family history of ischemic heart disease and other diseases of the circulatory system
CPT/HCPCS: 49657; S2900; 64999; 80053; 85025